=== PATIENT | female | born 1945 | race Caucasian/White ===

== ENCOUNTER → 2020-10-16 08:46 | Outpatient (CLI) | payer MEDICARE, SELFPAY ==
--- NOTE | 2020-10-16 | DI.NM.S_ITS ---
PROCEDURE: NM ALLYN PERF SPECT REST & STR Rest and pharmacological stress myocardial perfusion SPECT with gated imaging and ejection fraction RADIOPHARMACEUTICAL: 25 mCi Tc-99m tetrafosmin IV at rest and 25.1 mCi Tc-99m tetrafosmin IV at peak effect of pharmacological stress. Yys-ezv-[id number] was performed. INDICATIONS: Paroxysmal atrial fibrillation TECHNIQUE: Radiopharmaceutical was injected at peak stress test, and also at rest. SPECT images were obtained. SPECT myocardial perfusion images were displayed in short axis, horizontal long axis, and vertical long axis views. Gated images were reviewed using [employer] software. COMPARISON: None. CARDIAC STRESS: A pharmacologic stress test was performed under the supervision of an attending staff, using an infusion of lexiscan 0.4mg IV X1. Hemodynamic data: There is normal blood pressure and heart rate response to pharmacologic stress. Symptoms: The patient denied anginal chest pain. Aminophylline: none EKG: No diagnostic changes of ischemia; occasional PVCs during the study. FINDINGS: Raw data: There is good myocardial uptake of radiotracer. No significant motion artifacts. Mfed-bs-grtws ratio is 0.37 (normal is less than 0.38 for tetrafosmin tracer). Left ventricle function: Gated images demonstrate normal left ventricular wall thickening. No segmental wall motion abnormalities. No transient ischemic dilation; TID is 0.87 (normal less than 1.3). Left ventricle resting end diastolic volume is 80 mL. Left ventricle stress ejection fraction is 87%; normal range is above 45%. Myocardial perfusion: There is normal distribution of activity in the right and left ventricular myocardium. No fixed or reversible perfusion defects. IMPRESSION: Low risk, normal pharmaceutical nuclear stress test. 1) No perfusion evidence of ischemia or infarction. 2) Normal left ventricular size, wall motion, and systolic function (EF post stress 87%). 3) No ECG evidence of ischemia. 4) No angina during the study. 5) No prior nuclear stress test available for comparison. Dictated by: Tamia Reaves MD on 10/19/2020 at 9:38 Approved by: Tamia Reaves MD on 10/19/2020 at 9:40
--- NOTE | 2020-10-18 14:15 | PM.TREADMILL ---
Cardiac Stress Test Report Referral & Results Date Patient Seen: 10/18/20 Requesting provider: Kenny Roberson Indication: AFib, preop Rest ECG: Sinus rhythm with occasional PVCs Procedure Note: After both written and verbal informed consent the patient had an IV started by the diagnostic imaging RN, and then was hooked up to the treadmill monitoring system. The Lexiscan material, and then the Cardiolite tracer, were administered sequentially. An additional 3 min was spent monitoring the patient while supine on the gurney. The patient had a normal response to all infused materials. Impression: Patient fairly dramatic symptoms of dyspnea with the infusion of the Lexiscan. Vital signs remained stable however. Symptoms of dyspnea improved significantly prior to her leaving the treadmill room Please see perfusion imaging report for details regarding possible ischemia Please note: Actual ECG tracings can be found in the PACS system.
== END ==
PROVIDERS: PCP Family Medicine; Referring Provider Family Medicine; Visit Provider Family Medicine
DX: Z01.812 Encounter for preprocedural laboratory examination (principal); I48.0 Paroxysmal atrial fibrillation; Z20.822 Contact with and (suspected) exposure to COVID-19
CPT/HCPCS: 78452; 87635; 93016; 93017; 93018; C9803; A9502; J2785

== ENCOUNTER → 2020-10-16 10:18 | Outpatient (CLI) | payer MEDICARE, SELFPAY ==
[2020-10-16 11:39] LABS: COVID19 -Nasal RAPID Negative (Negative)
== END ==
PROVIDERS: PCP Family Medicine; Visit Provider Physician Assistant
DX: Z01.812 Encounter for preprocedural laboratory examination (principal); Z20.822 Contact with and (suspected) exposure to COVID-19
CPT/HCPCS: 87635

== ENCOUNTER → 2021-01-20 16:32 | Outpatient (CLI) | payer MEDICARE, SELFPAY ==
[2021-01-20 16:50] LABS: Add Manual Diff / Slide Review NO; Basophils Absolute Auto 100 /uL (0-100); Basophils Percent Auto 0.8 % (0-2); Eosinophils Absolute Auto 300 /uL (0-450); Eosinophils Percent Auto 3.2 % (2-4); Hematocrit 28.9 % (36-46); Hemoglobin 9.2 g/dL (12.0-16.0); Lymphocytes Absolute Auto 2800 /uL (1100-4500); Lymphocytes Percent Auto 31.7 % (25-40); Mean Corpuscular HGB Conc 31.9 % (30-36); Mean Corpuscular Hemoglobin 22.8 PG (26-34); Mean Corpuscular Volume 71.4 fL (80-100); Monocytes Absolute Auto 900 /uL (0-900); Monocytes Percent Auto 10.3 % (3-14); Neutrophils Absolute Auto 4800 /uL (1500-7000); Platelet Count 493 X10^3/uL (150-400); Red Blood Cell Count 4.04 X10^6/uL (4.0-5.2); Red Cell Distribution Width 20.5 % (11.6-14.8); White Blood Cell Count 8.9 X10^3/uL (4.5-11.0)
[2021-01-20 17:04] LABS: BUN Creatinine Ratio 24.7 (6-22); Blood Urea Nitrogen 20 mg/dL (7-17); Calcium 9.5 mg/dL (8.4-10.2); Carbon Dioxide 29 mmol/L (22-32); Chloride 98 mmol/L (98-107); Estimated Glomerular Filt Rate > 60.0 mL/min (>60); Glucose 87 mg/dL (80-110); HEMOLYSIS < 15 (0-50); Potassium 4.2 mmol/L (3.4-5.1); Sodium 134 mmol/L (137-145)
[2021-01-20 17:38] LABS: Anisocytosis 1+; Hypochromasia 2+; Microcytosis 1+; Platelet Estimate Adequate on smear; Poikilocytosis 1+; Target Cells 1+
== END ==
PROVIDERS: Family Provider Family Medicine; PCP Family Medicine; Referring Provider Orthopaedic Surgery Orthopaedic Surgery of the Spine; Visit Provider Orthopaedic Surgery Orthopaedic Surgery of the Spine
DX: Z01.812 Encounter for preprocedural laboratory examination (principal)
CPT/HCPCS: 36415; 80048; 85025

== ENCOUNTER → 2021-01-24 12:17 | Outpatient (CLI) | payer MEDICARE, SELFPAY ==
[2021-01-24 13:23] LABS: Add Manual Diff / Slide Review NO; Basophils Absolute Auto 100 /uL (0-100); Eosinophils Absolute Auto 200 /uL (0-450); Eosinophils Percent Auto 2.7 % (2-4); Hematocrit 28.2 % (36-46); Hemoglobin 9.2 g/dL (12.0-16.0); Lymphocytes Absolute Auto 1700 /uL (1100-4500); Lymphocytes Percent Auto 25.5 % (25-40); Mean Corpuscular HGB Conc 32.7 % (30-36); Mean Corpuscular Hemoglobin 22.8 PG (26-34); Mean Corpuscular Volume 69.6 fL (80-100); Monocytes Absolute Auto 600 /uL (0-900); Monocytes Percent Auto 9.1 % (3-14); Neutrophils Absolute Auto 4100 /uL (1500-7000); Neutrophils Percent Auto 61.7 % (50-75); Platelet Count 489 X10^3/uL (150-400); Red Blood Cell Count 4.05 X10^6/uL (4.0-5.2); Red Cell Distribution Width 20.5 % (11.6-14.8); White Blood Cell Count 6.6 X10^3/uL (4.5-11.0)
[2021-01-24 14:02] LABS: HEMOLYSIS < 15 (0-50); Iron 25 ug/dL (37-170)
[2021-01-24 14:10] LABS: Hypochromasia 2+; Microcytosis 2+
[2021-01-24 14:14] LABS: Percent Iron Saturation 6 % (15-50); Total Iron Binding Capacity 416 ug/dL (265-497); Transferrin 341 mg/dL (206-381)
[2021-01-24 14:42] LABS: Ferritin 7 ng/mL (11-264)
[2021-01-24 14:57] LABS: Vitamin B12 Reflex MMA if <400 > 1000 pg/mL (239-931)
== END ==
PROVIDERS: Family Provider Family Medicine; PCP Family Medicine; Referring Provider Family Medicine; Visit Provider Family Medicine
DX: D64.9 Anemia, unspecified (principal)
CPT/HCPCS: 36415; 82607; 82728; 83540; 83550; 85025

== ENCOUNTER → 2021-02-06 14:57 | Outpatient (CLI) | payer MEDICARE, SELFPAY ==
--- NOTE | 2021-02-06 15:01 | DI.CT.S_ITS ---
PROCEDURE: CT LUMBAR SPINE WO CON INDICATIONS: Radiculopathy, lumbar region TECHNIQUE: Noncontrast 3 mm thick sections acquired from the T12 level to the sacrum. Sagittal and coronal reformats were constructed. For radiation dose reduction, the following was used: automated exposure control. COMPARISON: [facility], CT, CT LUMBAR SPINE WITHOUT CONTRAST, 06/24/2020, 14:58. [facility], MR, MR LUMBAR SPINE WITHOUT CONTRAST, 06/24/2020, 14:35. [facility], CR, XR LUMBAR SPINE WITH FLEXION EXTENSION 5 VIEWS, 06/10/2020, 16:20. FINDINGS: Image quality: Excellent. Bones: No acute vertebral body compression fractures. There is a remote fracture seen of the L3 level, with vertebroplasty cement present. There is approximately 30% loss of vertebral body height anteriorly, which is similar to the prior. No suspicious lytic or blastic bony lesions. There is mild retrolisthesis at L2-L3, with moderate retrolisthesis at L3-L4. Pars defects are not seen. T10-T11: Moderate loss of disc height is seen. Bridging endplate osteophytes are seen. No significant disc bulge is seen. At least moderate facet hypertrophy can be seen. No significant central canal narrowing is seen. T11-T12: Mild to moderate loss of disc height is seen. Mild generalized disc bulge is seen. Moderate facet joint hypertrophy is seen. There is moderate right-sided and no left-sided neural foraminal narrowing seen. Mild to moderate central canal narrowing is seen. T12-L1: Moderate loss of disc height is seen. A mild degree of vacuum disc phenomenon can be seen anteriorly. Mild generalized disc bulge is seen. No significant neural foraminal or central canal narrowing can be seen. L1-L2: Moderate loss of disc height is seen. Endplate irregularity and sclerosis can be seen. Vacuum disc phenomenon is seen at this level. Mild to moderate disc bulge is seen. Mild bilateral neural foraminal narrowing can be seen. Mild central canal narrowing is seen. When comparison is made with the prior images, these findings are similar. L2-L3: At least moderate loss of disc height is seen. At least moderate disc bulge is seen. Vacuum disc phenomenon is seen at this level. At least moderate facet hypertrophy can be seen. There is moderate right-sided and at least moderate left-sided neural foraminal narrowing seen. Moderate central canal narrowing is seen. No significant change compared to the prior. L3-L4: Pytw-oh-wtgoselo loss of disc height is seen. Vertebroplasty cement can be seen along this disc level, which is similar to the prior. There is moderate to severe bilateral neural foraminal narrowing seen, right worse than left. Moderate to severe central canal narrowing is seen, as on series 4, image 51. When comparison is made with the prior images, these findings are similar. L4-L5: Moderate to severe loss of disc height is seen. Endplate irregularity and sclerosis can be seen. Vacuum disc phenomenon is seen at this level. At least moderate facet hypertrophy is seen. There is at least moderate bilateral neural foraminal narrowing seen, right worse than left. At least moderate central canal narrowing is seen. Stable from the prior study. L5-S1: There is moderate loss of disc height seen. Vacuum disc phenomenon is seen at this level. Endplate irregularity and sclerosis can be seen. Posteriorly projected endplate osteophytes are seen. Mild to moderate facet hypertrophy is seen. There is moderate right-sided and moderate to severe left-sided neural foraminal narrowing seen. Moderate central canal narrowing is seen. No significant change from the prior. Soft tissues: No retroperitoneal masses or hematomas. Visualized aorta is normal in caliber. Atherosclerotic calcification is noted. Minimal sigmoid diverticulosis can be seen, without findings of active diverticulitis. IMPRESSION: Multiple levels of lumbar spine degenerative change are seen, which are overall worst at the L3-L4 level. The degenerative changes are similar to the outside prior. Stable remote L3 compression deformity, with vertebroplasty cement. Dictated by: Don Beltre M.D. on 02/07/2021 at 11:33 Approved by: Don Beltre M.D. on 02/07/2021 at 11:42
== END ==
PROVIDERS: Family Provider Family Medicine; PCP Family Medicine; Referring Provider Orthopaedic Surgery Orthopaedic Surgery of the Spine; Visit Provider Orthopaedic Surgery Orthopaedic Surgery of the Spine
DX: M47.26 Other spondylosis with radiculopathy, lumbar region (principal); M47.27 Other spondylosis with radiculopathy, lumbosacral region
CPT/HCPCS: 72131

== ENCOUNTER → 2021-02-12 10:13 | Outpatient (CLI) | payer MEDICARE, SELFPAY ==
[2021-02-12 12:38] LABS: COVID19 -Nasal RAPID Negative (Negative)
== END ==
PROVIDERS: Family Provider Family Medicine; PCP Family Medicine; Visit Provider Physician Assistant
DX: Z20.822 Contact with and (suspected) exposure to COVID-19 (principal)
CPT/HCPCS: 87635; C9803

== ENCOUNTER 2021-02-14 10:42 | Inpatient (IN) | payer MEDICARE, SELFPAY ==
[2021-02-05 08:47] VITALS: BMI 25.6
[2021-02-14] VITALS (14 sets, daily range): BP systolic 110–147; BP diastolic 58–79; PULSE 62–87; RESP 10–20; TEMP 35.7–36.6; O2SAT 92–966; BMI 25.6
--- NOTE | 2021-02-14 11:15 | SUR.PREOP ---
5/5 strength throughout lower extremities. states has low back pain radiating down bilateral legs to top of feet. occasional sciatic pain. denies numbness or tingling.
[2021-02-14] MEDS: LACTATED RINGERS 1,000 ML 42 ML IV ×2 (11:20→16:41)
--- NOTE | 2021-02-14 12:33 | PM.PREOP ---
Pre-operative Note COVID-19 COVID-19 status: Negative Result date/Date tested (Pos, Neg/Pending): 02/12/21 Interval Note History & Physical reviewed/Exam performed by Physician: Yes Changes to H&P: No
[2021-02-14] MEDS: CEFAZOLIN 1 GM VIAL 2 GM IV ×2 (13:15→20:13)
--- NOTE | 2021-02-14 13:50 | SUR.OPER ---
Prone on spine table, head in foam head support, padded chest and pelvic supports, gel pad at knees, lower legs supported by pillows; nipples, genitalia and toes free of pressure, arms secured on foam padded arm boards at <90 degrees abduction. Tape over blanket at thigh secured to table.
[2021-02-14] MEDS: BUPIVACAINE 0.25% (PF) 30 ML, EPINEPHrine 0.3 MG INJ (13:54)
[2021-02-14] MEDS: BUPIVACAINE LIPOSOME 266 MG/20 ML VIAL INJ (13:54)
--- NOTE | 2021-02-14 17:17 | DI.RAD.S_ITS ---
PROCEDURE: XR LUMBAR SPINE 2-3V INDICATIONS: TLIF TECHNIQUE: 2 intraoperative fluoroscopic spot films were obtained COMPARISON: [facility], [place], CT LUMBAR SPINE WO CON, 02/06/2021, 15:13. FINDINGS: Two intraoperative fluoroscopic spot films were obtained during a interbody fusion and posterior farida and screw instrumentation placement. Hardware appears appropriately positioned, there is a spacer graft cage at L2-3. IMPRESSION: Fluoroscopic guidance Approved by: Peterson Khan M.D. on 02/14/2021 at 17:15
--- NOTE | 2021-02-14 17:31 | P.OP_ITS ---
Operative Date/Time/Diagnoses Date of procedure: 02/14/21 Time of procedure: 12:30 Pre-op diagnosis: 1. L2-3, L3-4 spinal stenosis with neurogenic claudication 2. L2-3, L3-4 spondylosis with radiculopathy Post-op diagnosis: same Procedure & Clinicians Procedure: 1. L2-3, L3-4 Postero-lateral and posterior interbody fusion 2. L2-3, L3-4 interbody cage placement, L3-4 cage was removed 3. L2-3, L3-4 decompressive laminectomy with bilateral facetecomies 4. L2-3, L3-4 Posterior segmental instrumentation 5. Anchor Point of bone marrow from iliac crest 6. Utilization of microsurgical technique and operating microscope Same procedure as scheduled: Yes Indications: Patient has been having chronic back pain and worsening lumbar radiculopathy. Patient failed multiple conservative management with worsening pain weakness and numbness in her lower extremity. Patient has been having difficulty performing activity of daily living. After discussing risks benefits of treatment options, patient elected proceed with surgery. Surgeon: Gilberto Savage Window Glass Installer: Dina Bah Click Yes if Unassisted: No Anesthesia Type: General Operative Notes Closure Type: primary Specimen(s): none sent Prosthetic devices, grafts, tissues, transplants, or devices: Globus CREO MIS screws, Rise cage Applied: catheter Estimated Blood Loss (mL): 250 Blood products transfused: none Procedure in detail: Patient was seen in the preoperative area. Risks and benefits of the surgery was discussed with the patient. Informed consent was obtained from the patient and placed in the chart. Surgical site was marked. Patient was taken to the operative room. General anesthesia was administered. Prophylactic antibiotic was given to the patient less than 30 min before the incision was made. Patient was placed into a prone position on the Jaylon table. Patient's back was then prepped and draped in the sterile fashion. Time- out was performed at this time. After patient was prepped and draped, patient's PSIS was palpated and marked bilaterally. Small 1 cm incision was made over the PSIS for placement of the reference probes. Two trocar was placed into the PSIS 1 on each side. The reference probe was attached to the trocar of the reference apparatus. At this time the C-arm imaging was used to confirm AP and lateral of L2, L3-L4 vertebrae and merged the C-arm imaging using the [email or web address] robotic navigation system with the CT of the lumbar spine. After successful merging was completed and confirmed, skin marker was used to mary out the skin incision using the [email or web address] robotic arm. Bilateral incision was made at this time. Pre templated trajectory was used and guided using the [employer] robotic navigation system for bilateral L2 L3, L4 pedicle screw placement. This was done by using the robotic arm to guide the high-speed bur to make a cortical entry point. Next a drill was placed also using the robotic arm and guided using the navigation system drilling partially through bilateral L2, L3, L4 pedicles. Next L2, L3, L4 pedicle screws it was pre templated and measured was placed onto the power local company truck driver and inserted into the pedicles bilaterally. After all 6 screws were placed C-arm imaging was taken of both AP and lateral to confirm the placement. Excellent placement of the screws were confirmed and a matched precisely with the pre planned screw placement using the navigation system. MARs retractor was inserted using [employer] guidence. Globus MARS retractors was placed inside the incision and docked onto the L2, L3 lamina. Using microsurgical technique and operating microscope, a L3, L4 laminectomy and L2-3, L3-4 facetectomy was performed using a Kerrison rongeur. Patient was found have severe lateral recess and neural foramen stenosis which was fully decompressed after the laminectomy facetectomy. More than 75% of the facets were removed during the process of decompression rendering L2-3, L3-4 level grossly unstable and required a fusion procedure at the same time. The disc sp genny at L2-3, L3-4 was identified, and a total diskectomy was performed at L2-3, L3-4 level. The endplates were decorticated using a rasp and shaver. The total diskectomy and decortication was performed at L2-3, L3-4 level in order to to accomplish a L2-3, L3-4 fusion. The local bone from the laminectomy and facetectomy was saved for local bone grafting. After the total diskectomy and decortication was completed, Trifecta bone graft material was combined with local bone that was harvested earlier. During the process of interbody disc space preparation at L3-4 level, pinhole- sized dural defect was encountered secondary to patient's skin amount of adhesion possibly due to previous fracture/kyphoplasty surgery. The dural defect was small and was not amenable for surgical repair. DuraGen and Tisseel was used to patch the dural defect. There was no CSF leakage. At this time, a separate skin is incision was made over the iliac crest. A Jamshidi needle was inserted into the iliac crest through a separate skin incision. 5 cc of bone marrow aspiration was obtained through the separate skin incision using a Jamshidi needle from the iliac crest. The bone marrow aspiration was combined with local bone and the Trifecta bone grafting material. The bone grafting material was placed into the L2-3, L3-4 interbody space along with expandable cages. One cage each was inserted into the L2-3 L3-4 interbody space along with bone graft material. The cage was expanded to its maximum height using the torque limiting screwdriver. The disc preparation as well as the cage insertion were also performed under navigation guidance. After the cage was placed, AP and lateral C-arm imaging was taken to confirm placement of the cage and excellent position was confirmed. Patient was found have significant osteoporosis in all the segments of bone that was operated on at L2 through 4. After the cage was placed at both levels x-ray imaging confirms significant amount of subsidence at L3-4 level. Due to the significant amount of bone bleeding as well as subsidence, decision was made to remove the L3-4 interbody cage. This was done by the expand the cage using the screwdriver, retrieving the cage using a pituitary. After the cage was removed interbody space at L3-4 was packed with additional bone material consisted of stem cell and autograft in order to accomplish interbody fusion at L3-4 level. Globus MARS retractor was inserted and docked onto the L2-3, L3-4 posterolateral gutter on the right side. Using the power drill, posterior-lateral decortication was performed at L2-3, L3-4 level until bleeding cortical bone was identified. The remaining bone grafting material was placed into the L2-3, L3-4 posterior lateral gutter he order to accomplish posterolateral fusion at the L2- 3, L3-4 level. At this time the tulips were attached to the L2, L3-L4 pedicle screw shanks. After measuring the length of the rods, they were inserted into the tulips of the pedicle screws and locked in place using locking caps and torque limiting screwdriver bilaterally. Total 6 caps and 2 titanium rods was used in order to complete the posterior instrumentation construct. After all the hardware was placed, and confirmed with AP and lateral C-arm imaging, the wound was then irrigated with sterile normal saline and packed with Ray-Shant gauze for 3 min to accomplish hemostasis. After the gauze was removed the deep fascia was closed with #1 Vicryl suture. The subcutaneous layer was closed with 2-0 Vicryl. The skin was closed with skin yumiko. Patient tolerated the procedure well. There were no complications. Neuro monitoring system was used to monitor patient's neurologic status throughout entire procedure. There was no disturbance of the neural monitoring signals throughout the case. Complications: none Post-operative Condition: stable Disposition: PACU Plan for aftercare: Admit to inpatient hospital
--- NOTE | 2021-02-14 18:42 | PC.NURSE ---
Day shift: Pt on unit from PACU at approx 1842. She woke up in the elevator per REPAIRER TYPEWRITER's and she now appears to be in pain. Moans and wiggling. Encouraged to lay flat. Dressing is CDI. Mayers patent with clear yellow output. Call light in reach. She is in pain but not talking much.
[2021-02-14] MEDS: SODIUM CHLORIDE 0.9% 1,000 ML 100 ML IV (19:06)
[2021-02-14] MEDS: HYDROMORPHONE 0.5 MG INJ IV (20:13)
[2021-02-14] MEDS: ACETAMINOPHEN 325 MG TABLET 650 MG PO (20:17)
[2021-02-14] MEDS: DOCUSATE 100 MG CAPSULE PO (20:18)
[2021-02-14] MEDS: SENNOSIDES 8.6 MG TABLET 17.2 MG PO (20:18)
[2021-02-14] MEDS: ATORVASTATIN 20 MG TABLET PO (20:18)
[2021-02-14] MEDS: ALPRAZolam 0.25 MG TABLET PO (20:18)
[2021-02-14] MEDS: diazePAM 10 MG/2 ML SYRINGE 2 MG IV (21:04)
[2021-02-14] MEDS: HYDROMORPHONE 1 MG INJ IV (22:52)
[2021-02-15] VITALS (10 sets, daily range): BP systolic 104–151; BP diastolic 54–98; PULSE 74–98; RESP 14–18; TEMP 35.8–36.6; O2SAT 91–100
[2021-02-15] MEDS: HYDROMORPHONE 1 MG INJ IV ×4 (00:45→06:15)
[2021-02-15] MEDS: HYDROCODONE/ACET 10/325 TABLET 1 TAB PO (02:24)
[2021-02-15] MEDS: ALPRAZolam 0.25 MG TABLET PO ×2 (02:24→20:16)
[2021-02-15] MEDS: CEFAZOLIN 1 GM VIAL 2 GM IV (04:57)
[2021-02-15 07:04] LABS: Hemoglobin 7.6 g/dL (12.0-16.0)
[2021-02-15] MEDS: POTASSIUM CHLORIDE 20 MEQ TAB PO (08:42)
[2021-02-15] MEDS: FERROUS SULFATE 325 MG TABLET PO (08:42)
[2021-02-15] MEDS: OXYCODONE IR 5 MG TABLET 10 MG PO ×5 (08:42→23:25)
[2021-02-15] MEDS: hydrOXYzine pamoate 25 MG CAPSULE PO ×3 (08:42→23:25)
[2021-02-15] MEDS: FUROSEMIDE 40 MG TABLET PO (08:42)
[2021-02-15] MEDS: lisinopriL 5 MG TABLET PO (08:42)
[2021-02-15] MEDS: DOCUSATE 100 MG CAPSULE PO ×2 (08:42→20:16)
[2021-02-15] MEDS: MAGNESIUM HYDROXIDE 30 ML UDC PO (08:42)
[2021-02-15] MEDS: METOPROLOL ER 50 MG TABLET 100 MG PO (08:43)
[2021-02-15] MEDS: dilTIAZem CD 180 MG CAP PO (08:44)
--- NOTE | 2021-02-15 10:01 | PM.PNPO.1 ---
Subjective Subjective Date Patient Seen: 02/15/21 Time Patient Seen: 10:01 Interval history: Patient states she just had a pain pill and is much more comfortable. She states she is tired she had difficulty sleeping last night. Denies fever or chills. Otherwise without complaints. Exam Vital Signs (past 8 hours): - 02/15/21 04:36 02/15/21 08:41 02/15/21 09:21 Temperature 97.6 F 96.5 F L Pulse Rate 87 98 H 88 Respiratory Rate 14 14 Blood Pressure 151/98 H 143/83 H Pulse Oximetry 100 98 Oxygen Delivery Method Nasal Cannula Oxygen Flow Rate 4 Narrative Exam Narrative: Pleasant 75-year-old female resting comfortably in bed in no apparent distress. Dressing is Clean, dry, intact.. Motor functions intact distal bilateral lower extremities. Sensation grossly intact bilateral lower extremities. Objective Labs Result Diagrams: 02/15/21 06:45 Labs: Laboratory Results - last 24 hr 02/15/21 06:45 Hgb 7.6 L Hct 24.0 L PFSH Medical History Acid reflux Acne (~1951) Anemia Anxiety Atrial fibrillation (~2018) Cataracts, bilateral (~2017) Chicken pox Chronic low back pain (~2014) Chronic pain syndrome Current every day smoker Dyslipidemia History of Mohs micrographic surgery for skin cancer HLD (hyperlipidemia) Hypertension correction current use of anticoagulant therapy Measles SCC (squamous cell carcinoma) Syncope (~2017) Surgical History (Updated 02/05/21 @ 09:22 by Desire Snyder RN) Anesthesia History of bilateral tubal ligation History of carpal tunnel surgery of right wrist History of tonsillectomy (~1962) Hx of bilateral cataract extraction Family History (Updated 11/05/20 @ 22:21 by Loiuse Theodore) Father History of heart disease Mother History of heart disease Hypertension Social History household members: none Smoking Status: Current every day smoker Tobacco: How many years used: 57 quit status: not considering quitting (Too stressed) second hand exposure: Yes alcohol intake: current substance use type: marijuana (Pain relief ) Assessment & Plan Post-op Postoperative Procedures: Procedures Operation Date: 02/14/21 12:15 Actual Procedure Side Surgeon p L2-3, L3-4 TLIF with posterior instrumentation Gilberto Savage MD Postoperative day: 1 Postoperative status narrative: Stable Postoperative plan narrative: Patient has been supine due to a pinhole-sized dural defect L3-L4 per op note Multimodal pain management Catheter out when ambulating Mobilize with physical therapy, limit bending, twisting, lifting Disposition 1-2 days Quality VTE Deep Vein Thrombosis/Pulmonary Embolism Present on Admission: No
--- NOTE | 2021-02-15 10:40 | PT.IIE ---
Current Diagnoses Spondylolisthesis, lumbar region (02/14/21) Spinal stenosis, lumbar region with neurogenic claudication (02/14/21) Surgery Performed Operation Date: 02/14/21 12:15 Actual Procedures p L2-3, L3-4 TLIF with posterior instrumentation - Gilberto Savage MD Surgical History (Last Updated 02/05/21 @ 09:22 by Desire Snyder RN) Anesthesia Medical History (Last Reviewed 02/15/21 @ 10:02 by Brad Gallegos PA-C) Acid reflux Acne (~1952) Anemia Anxiety Atrial fibrillation (~2018) Cataracts, bilateral (~2018) Chicken pox Chronic low back pain (~2014) Chronic pain syndrome Current every day smoker Dyslipidemia History of Mohs micrographic surgery for skin cancer HLD (hyperlipidemia) 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 Measles SCC (squamous cell carcinoma) Syncope (~2017) Physical Therapy Inpatient Evaluation/Re-Eval M1 PT/OT-IP Prior Functional Status Start: 02/15/21 13:54 Freq: NEEDED Status: Active Protocol: Document 02/15/21 10:40 AB (Rec: 02/15/21 14:08 [email or web address]) Medical Review Prior Functional Status Medical History Reviewed Yes Communication able to make needs known but drowsy Mobility and Gait pt stated that she is independent with all mobilities and ambulaiton without AD Social History Household Members none Living Arrangements House Number of Floors (Floors) Two Floors Number of Stairs To Enter/Railing? pt stays on main level of the house 2 steps to enter without rails but has 2 posts that she can hold on to Home Environment Standard Height Toilet,Tub/ Shower Home Equipment Four Wheel Walker,Shower Seat without Backrest,Hand Held Shower,Grab Bars In Shower Additional Social History Comment stated that her son and daughter in law lives next door that might be able to help but are not available all the time M2 PT-IP Current Condition Start: 02/15/21 13:54 Freq: NEEDED Status: Active Protocol: Document 02/15/21 10:40 AB (Rec: 02/15/21 14:08 [email or web address]) Physical Therapy Current Condition Current Condition Evaluation Date 02/15/21 Treatment Diagnosis s/p L2-3, L3-4 TLIF; difficulty in walking Onset Date 02/14/21 M3 PT-IP Subjective Start: 02/15/21 13:54 Freq: NEEDED Status: Active Protocol: Document 02/15/21 10:40 AB (Rec: 02/15/21 14:08 [email or web address]) Subjective Physical Therapy Visit Type Type Initial Evaluation Visit Start Time 10:40 Visit Stop Time 11:16 Total Visit Minutes 36 Number of ESCAPEMENT MAKER Visits 0 Physical Therapy Visit Comments Patient Comments agreeable to do PT Therapy Pain Assessment Pain When Pain Assessed At Rest Pain Present Pain Present Pain Reported Location Lower Back Intensity 10 Scale Used Numeric (0 - 10) Pain Behaviors Restlessness Pain Management Techniques Distraction,Modification of Treatment,Re-positioning, Timing of Activity with Medications M4 PT-IP Mobility and Gait Start: 02/15/21 13:54 Freq: NEEDED Status: Active Protocol: Document 02/15/21 10:40 AB (Rec: 02/15/21 14:08 [id number]) PT-Bed Mobility Assessment Rolling Type of Rolling Log Rolling Level of Assist Maximal Assistance Supine to Sit Supine to Sit Maximum Assistance,1 Person Assistance,2 Person Assistance PT-Transfer Assessment Sit to and From Stand Sit to and from Stand Maximum Assistance,1 Person Assistance,2 Person Assistance ,Use of Upper Extremities Equipment Transfer Assistive Device Gait Belt Orthotic/Prosthetic Devices or Brace: No Transfers Transfer Technique Stand Step Pivot Transfer Ability Level of Assist Maximum Assistance,2 Person Assistance,Use of Upper Extremities Comments Mobility Comments educated pt on back precautions and log roll bed mobility. pt is drowsy but able to answer questions. completed log roll supine to sit max A x 1- 2 and max cues. pt is very impulsive and restless and requires cues for safety. pt tends to twist in bed and tried to sit up side way but with LE still up in bed. instructed pt to stop and pt stated that she is losing her patient. pt calmed down after instructions. pt was able to sit on EOB mod A and max cues. completed sit to stand max A and max cues. c/o increase back pain. max A x 2 for step transfer to chair. positioned pt on chair . call light and table placed within reach. Gait Assessment Comments Gait Comments unable at this time PT-Balance Assessment Sitting Balance and Reactions Static Sitting Balance Ability Fair Dynamic Sitting Balance Ability Fair Standing Balance and Reactions Static Standing Balance Ability Poor Dynamic Standing Balance Ability Poor Device Used FWW M5 PT-IP Objective Assessments Start: 02/15/21 13:54 Freq: NEEDED Status: Active Protocol: Document 02/15/21 10:40 AB (Rec: 02/15/21 14:08 AB [id number]) Orientation Orientation/Cognition Level of Alertness Confusional State Orientation Name Safety Awareness Decreased Safety Awareness Memory Description Short Term Impaired Gross Range of Motion Lower Extremity ROM Assessment Within Functional Limits Strength Lower Extremity Strength Assessment Bilaterally Impaired Hip 3+/5 Knee L: 4-/5 R: 3+/5 Sensation Assessment Sensation Gross Sensation WNL Muscle Tone Muscle Tone WNL Yes M6 PT-IP Treatment Start: 02/15/21 13:54 Freq: NEEDED Status: Active Protocol: Document 02/15/21 10:40 AB (Rec: 02/15/21 14:08 AB [id number]) Physical Therapy Treatment Education Education Provided Precautions,Weight Bearing Status,Post-Op Packet,Safety M7 PT-IP Assessment and Plan Start: 02/15/21 13:54 Freq: NEEDED Status: Active Protocol: Document 02/15/21 10:40 AB (Rec: 02/15/21 14:08 AB [id number]) PT Summary Assessment and Plan Potential Rehabilitation Potential Good Status of Condition at Evaluation Evolving Summary Impairments Pain,ROM,Strength,Balance, Coordination,Sensation,Tone, Cognition,Bed Mobility, Transfers,Gait,Activity Tolerance Assessment Summary pt requiring max A x 2 and max cues with mobility. c/o increase back pain to 10/10 and is very impulsive and unable to tolerate much activity due to pt. pt will need 24/7 assist available at this time and will require SNF rehab to improve strength and independence. will continue to assess progress. Goals Bed Mobility Goal Standby Assistance Transfer Goal Standby Assistance,Front Wheeled Walker Gait Goal Standby Assistance,Front Wheel Walker Gait Distance 100 Other Goals improve ambulation using 4WW 150 ft SBA up/down 2 steps 2 posts/ supports/ CLINICAL REIMBURSEMENT SPECIALIST min A Days to Meet Goals 10 Frequency of Treatment Frequency Of Treatment Twice a Day Treatment Plan Physical Therapy Treatment Plan Bed Mobility Training,Transfer Training,Gait Training, Therapeutic Exercise,Balance Retraining,Post Op Education, Discharge Planning,Hot or Cold Pack,Neuromuscular Re-ed, Coordination Retraining,Manual Therapy Other Recommendations and Next Treatment ambulation Focus Precautions Lumbar Precautions Log Roll,No Twisting,Limit Bending,Lifting Restriction of 10 lbs,Gait Belt above Incisional Area Recommendations To Nursing Amount of Assist Needed 2 Person Assist Discharge Recommendations PT Discharge Recommendations SNF Rehab Equipment Needed for Home Before FWW if not safe with 4WW Discharge Transportation Needs at Discharge Wheelchair/Cabulance
[2021-02-15] MEDS: HYDROMORPHONE 0.5 MG INJ IV (11:17)
--- NOTE | 2021-02-15 11:22 | OT.IP.EVAL ---
Current Diagnoses Spondylolisthesis, lumbar region (02/14/21) Spinal stenosis, lumbar region with neurogenic claudication (02/14/21) Surgery Performed Operation Date: 02/14/21 12:15 Actual Procedures p L2-3, L3-4 TLIF with posterior instrumentation - Gilberto Savage MD Past Medical History (Last Reviewed 02/15/21 @ 10:02 by Brad Gallegos PA-C) Acid reflux Acne (~1952) Anemia Anxiety Atrial fibrillation (~2018) Cataracts, bilateral (~2017) Chicken pox Chronic low back pain (~2014) Chronic pain syndrome Current every day smoker Dyslipidemia History of bilateral tubal ligation History of carpal tunnel surgery of right wrist History of Mohs micrographic surgery for skin cancer History of tonsillectomy (~1962) HLD (hyperlipidemia) Hx of bilateral cataract extraction 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 Measles SCC (squamous cell carcinoma) Syncope (~2017) Surgical History (Last Updated 02/05/21 @ 09:22 by Desire Snyder RN) Anesthesia History of bilateral tubal ligation History of carpal tunnel surgery of right wrist History of tonsillectomy (~1962) Hx of bilateral cataract extraction Occupational Therapy Inpatient Evaluation/Re-Eval M1 PT/OT-IP Prior Functional Status Start: 02/15/21 13:54 Freq: NEEDED Status: Active Protocol: Document 02/15/21 14:37 CGR (Rec: 02/15/21 14:51 CGR [id number]) Medical Review Prior Functional Status Medical History Reviewed Yes Communication able to make needs known but drowsy Mobility and Gait pt stated that she is independent with all mobilities and ambulaiton without AD Activities of Daily Living and IADL's Pt states IND in all ADLs prior to admit. Social History Household Members other Living Arrangements House Number of Floors (Floors) Two Floors Number of Stairs To Enter/Railing? pt stays on main level of the house 2 steps to enter without rails but has 2 posts that she can hold on to Home Environment Standard Height Toilet,Tub/ Shower Home Equipment Four Wheel Walker,Shower Seat without Backrest,Hand Held Shower,Grab Bars In Shower Additional Social History Comment stated that her son and daughter in law lives next door that might be able to help but are not available all the time and that her grandson lives with her but he works. M1 PT/OT-IP Prior Functional Status Start: 02/15/21 14:36 Freq: NEEDED Status: Active Protocol: Document 02/15/21 14:37 CGR (Rec: 02/15/21 14:51 CGR [id number]) Medical Review Prior Functional Status Medical History Reviewed Yes Communication able to make needs known but drowsy Mobility and Gait pt stated that she is independent with all mobilities and ambulaiton without AD Activities of Daily Living and IADL's Pt states IND in all ADLs prior to admit. Social History Household Members other Living Arrangements House Number of Floors (Floors) Two Floors Number of Stairs To Enter/Railing? pt stays on main level of the house 2 steps to enter without rails but has 2 posts that she can hold on to Home Environment Standard Height Toilet,Tub/ Shower Home Equipment Four Wheel Walker,Shower Seat without Backrest,Hand Held Shower,Grab Bars In Shower Additional Social History Comment stated that her son and daughter in law lives next door that might be able to help but are not available all the time and that her grandson lives with her but he works. M2 OT-IP Current Condition Start: 02/15/21 14:36 Freq: Status: Active Protocol: Document 02/15/21 14:37 CGR (Rec: 02/15/21 14:51 CGR [id number]) Occupational Therapy Current Condition Current Condition Evaluation Date 02/15/21 Treatment Diagnosis L2-4 TLIF Diagnosis Onset Date 02/14/21 Post Operative Precautions Lumbar Precautions Log Roll,No Twisting,Limit Bending,Lifting Restriction of 10 lbs,Gait Belt above Incisional Area M3 OT- IP Subjective and Pain Start: 02/15/21 14:36 Freq: Status: Active Protocol: Document 02/15/21 14:37 CGR (Rec: 02/15/21 14:51 CGR [id number]) OT- Subjective Occupational Therapy Visit Type Type Initial Evaluation Visit Start Time 10:44 Visit Stop Time 11:22 Total Visit Minutes 38 Notes co-eval with P.T. OT Pain Assessment Pain When Pain Assessed At Rest Pain Present Pain Present Pain Reported Location Lower Back Intensity 9 Scale Used Numeric (0 - 10) Management Techniques Distraction,Modification of Treatment,Re-positioning, Timing of Activity with Medications M4 OT- IP ADL's Start: 02/15/21 14:36 Freq: Status: Active Protocol: Document 02/15/21 14:37 CGR (Rec: 02/15/21 14:51 CGR [id number]) OT [id number] General Evaluation Self-Feeding Ability Standby Assistance Comments OT Self-Feeding Comments with set up for late breakfast OT ADL-Grooming General Evaluation Grooming Ability Standby Assistance Areas Needing Assistance Face Washing Comments OT Grooming Comments seated in chair OT ADL-Oral Care General Eval Oral Care Ability Standby Assistance Areas of Assistance Brushing Teeth Comments Oral Care Comments seated in chair OT ADL-Dressing General Eval Lower Body Dressing Ability Total Assistance Areas Needing Assistance Socks OT ADL-Toileting Comments OT Toileting Comments not performed OT ADL-Bathing Comments OT Bathing Comments not performed M5 OT- IP IADL's Start: 02/15/21 14:36 Freq: Status: Active Protocol: Document 02/15/21 14:37 CGR (Rec: 02/15/21 14:51 CGR [id number]) OT-Instrumental Activities of Daily Living Deficits IADL Deficits Identified Deficits Home Safety Awareness Awareness of Need for Assistance at Home Decreased Awareness Ability to Problem Solve Emergency Able to Problem Solve Situations Medication Management Medication Management No Deficits Identified Money Management Money Management No Deficits Identified Meal Preparation Meal Preparation Comments Concerns for pt's ability to perform Statistician Statistician Comments Concerns for pt's ability to perform Driving Driving Comments Concerns for pt's ability to perform M6 OT- IP Functional Cognition Start: 02/15/21 14:36 Freq: Status: Active Protocol: Document 02/15/21 14:37 CGR (Rec: 02/15/21 14:51 CGR [id number]) Cognitive Factors Limiting Selfcare Function Cognitive Ability Level of Alertness Alert Patient Orientation Name,Age,Birthday,Month,Date, Year,Day of Week,Place, Situation Attention Span Ability Capable of Focused Attention, Capable of Sustained Attention Ability to Follow Commands Able to Follow One Step Commands with Increased Time, Able to Follow One Step Commands with Repetition Cognitive Comments Cognitive Assessment Comments Pt became agitated with instruction on mobility. OT- Vision and Hearing OT- Hearing Assessment OT- Hearing Assessment WFL OT- Vision Assessment Visual Acuity Glasses For Reading Visual Attentiveness WFL Occular Pursuits WFL Visual Convergence WFL M7 OT- IP Mobility and Balance Start: 02/15/21 14:36 Freq: Status: Active Protocol: Document 02/15/21 14:37 CGR (Rec: 02/15/21 14:51 CGR [id number]) OT- Bed Mobility Assessment Rolling Type of Rolling Log Rolling,Roll to Right Level of Assistance Maximum Assistance,1 Person Assistance,2 Person Assistance Supine to Sit Supine to Sit Assist Maximum Assistance,1 Person Assistance,2 Person Assistance Scooting Scooting to Edge of Bed Maximum Assistance,1 Person Assistance OT-Transfer Assessment Sit to and From Stand Sit to and from Stand Maximum Assistance,1 Person Assistance,2 Person Assistance Transfers Transfer Ability Maximum Assistance,1 Person Assistance,2 Person Assistance Technique Transfer Destination Bed,Chair Transfer Technique Stand Step Pivot Devices Transfer Assistive Devices Gait Belt,Front Wheeled Walker Comments Mobility Comments Pt needed extra instruction for log rolling and encouraged to slow down for movement. Pt states 10/10 pain with movement and max x 1 for mobility and second person assist for safety. OT- Gait Assessment Comments Gait Ability Comments did not occur OT- Balance Assessment Sitting Balance and Reactions Static Sitting Balance Ability Fair Dynamic Sitting Balance Ability Fair Standing Balance and Reactions Static Standing Balance Ability Poor Dynamic Standing Balance Ability Poor M8 OT- IP Objective Assessments Start: 02/15/21 14:36 Freq: Status: Active Protocol: Document 02/15/21 14:37 CGR (Rec: 02/15/21 14:51 CGR [id number]) OT Gross Range of Motion Upper Extremity Range of Motion Assessment Within Functional Limits OT Strength Upper Extremity Strength Assessment Within Functional Limits Comments Strength Comments grossly 4-/5 OT- Coordination Assessment Upper Extremity Finger to Nose Test Within Functional Limits Finger Tapping Test Within Functional Limits OT-Muscle Tone Assessment Muscle Tone WNL Yes OT Sensation Assessment Edema Edema Absent M9 OT- IP Assessment and Plan Start: 02/15/21 14:36 Freq: Status: Active Protocol: Document 02/15/21 14:37 CGR (Rec: 02/15/21 14:51 CGR [id number]) OT Summary Assessment and Plan Potential Rehabilitation Potential Good Analytic Complexity at Evaluation Moderate Summary OT Impairments Pain,Balance,Functional Mobility,Grooming,Dressing, Toileting,Bathing,Toilet Transfers,Shower Transfers, Activity Tolerance Progress Towards Goals Slow Progress due to Pain Assessment Summary Pt presents as a moderate complexity evaluation s/p admit for L2-4 TLIF. Pt reports 9-10 pain throughout session and had difficulty following safety instructions. Pt appears frustrated with pain level. Pt performed simple ADLs seated. Pt would benefit from SNF for discharge if pain is not better controlled. Likely pt will be safe for d/c home in a few days with home health and family support. Goals Grooming Goal Independent Dressing Goal Independent Toileting Goal Independent Bathing Goal Independent Toilet Transfer Goal Independent Shower Transfer Goal Independent Days to Meet Goals 10 Frequency of Treatment Frequency Of Treatment Once a Day Treatment Plan OT Treatment Plan ADL Training,Functional Mobility,Patient/Family Education,Discharge Planning Other Treatment Recommendations and Next ADLs standing, toileting, LB Treatment Focus dressing. Discharge Recommendations OT Discharge Recommendations Home vs SNF Transportation Needs at Discharge Wheelchair/Cabulance
--- NOTE | 2021-02-15 13:19 | PT.IPTN ---
Current Diagnoses Spondylolisthesis, lumbar region (02/14/21) Spinal stenosis, lumbar region with neurogenic claudication (02/14/21) Surgery Performed Operation Date: 02/14/21 12:15 Actual Procedures p L2-3, L3-4 TLIF with posterior instrumentation - Gilberto Savage MD Physical Therapy Treatment Note M2 PT-IP Current Condition Start: 02/15/21 13:54 Freq: NEEDED Status: Active Protocol: Document 02/15/21 10:40 AB (Rec: 02/15/21 14:08 AB [id number]) Physical Therapy Current Condition Current Condition Evaluation Date 02/15/21 Treatment Diagnosis s/p L2-3, L3-4 TLIF; difficulty in walking Onset Date 02/14/21 M3 PT-IP Subjective Start: 02/15/21 13:54 Freq: NEEDED Status: Active Protocol: Document 02/15/21 13:19 AB (Rec: 02/15/21 14:13 [facility] Subjective Physical Therapy Visit Type Type Treatment Note Visit Start Time 13:19 Visit Stop Time 13:30 Total Visit Minutes 11 Number of FACILITIES FLIGHT CHECK PILOT Visits 0 Physical Therapy Visit Comments Patient Comments pt requesting to go back to bed per nurse Therapy Pain Assessment Pain When Pain Assessed At Rest Pain Present Pain Present Pain Reported Location Lower Back Intensity 4 Scale Used Numeric (0 - 10) M4 PT-IP Mobility and Gait Start: 02/15/21 13:54 Freq: NEEDED Status: Active Protocol: Document 02/15/21 13:19 AB (Rec: 02/15/21 14:13 AB [id number]) PT-Bed Mobility Assessment Sit to Supine Sit to Supine Moderate Assistance,1 Person Assistance PT-Transfer Assessment Sit to and From Stand Sit to and from Stand Maximum Assistance,2 Person Assistance,Use of Upper Extremities Equipment Transfer Assistive Device Gait Belt,Front Wheeled Walker Orthotic/Prosthetic Devices or Brace: No Transfers Transfer Destination Chair Transfer Technique Stand Step Pivot Transfer Ability Level of Assist Maximum Assistance,1 Person Assistance,Use of Upper Extremities Comments Mobility Comments pt sitting on chair and wants to go back to bed. agreed to do ambulation. BP [id number] 104/59. completed sit to stand max A x2 and max cues. ambulated ~ 2ft but c/o dizziness and wants to sit and instructed to transfer to bed and completed max A and max cues. completed sit to supine mod A and cues. positioned pt in bed. call light and table placed within reach. Gait Assessment Gait Gait Assistance Required: Maximum Assistance,1 Person Assist Distance (Feet) 2 Able to Maintain Weight Bearing Status Yes During Gait Assistive Devices Assistive Device Gait Belt,Front Wheeled Walker Orthotic/Prosthetic Devices or Brace: No Gait Deviations General Gait Pattern Ataxic,Decreased Stride Length ,Decreased Feet Clearance,Step -to Gait Factors Limiting Gait Function Factors Limiting Gait Function Decreased Activity Tolerance, Decreased Strength,Difficulty Following Directions,Limited Range of Motion,Pain,Poor Balance,Poor Safety Awareness M5 PT-IP Objective Assessments Start: 02/15/21 13:54 Freq: NEEDED Status: Active Protocol: Document 02/15/21 10:40 AB (Rec: 02/15/21 14:08 [facility] Orientation Orientation/Cognition Level of Alertness Confusional State Orientation Name Safety Awareness Decreased Safety Awareness Memory Description Short Term Impaired Gross Range of Motion Lower Extremity ROM Assessment Within Functional Limits Strength Lower Extremity Strength Assessment Bilaterally Impaired Hip 3+/5 Knee L: 4-/5 R: 3+/5 Sensation Assessment Sensation Gross Sensation WNL Muscle Tone Muscle Tone WNL Yes M6 PT-IP Treatment Start: 02/15/21 13:54 Freq: NEEDED Status: Active Protocol: Document 02/15/21 13:19 AB (Rec: 02/15/21 14:13 [facility] Physical Therapy Treatment Education Education Provided Precautions,Safety M7 PT-IP Assessment and Plan Start: 02/15/21 13:54 Freq: NEEDED Status: Active Protocol: Document 02/15/21 13:19 AB (Rec: 02/15/21 14:13 [facility] PT Summary Assessment and Plan Potential Rehabilitation Potential Fair Summary Impairments Pain,ROM,Strength,Balance, Coordination,Sensation,Tone, Cognition,Bed Mobility, Transfers,Gait,Activity Tolerance Progress Towards Goals Slow Progress due to Pain,Slow Progress due to Activity Tolerance Assessment Summary pt continues to require max A x 2 with sit to stand but able to step transfer max A and max cues using fWW. pt will need SNF rehab to improve strength and mobiltiy independence. Goals Bed Mobility Goal Standby Assistance Transfer Goal Standby Assistance,Front Wheeled Walker Gait Goal Standby Assistance,Front Wheel Walker Gait Distance 100 Other Goals improve ambulation using 4WW 150 ft SBA up/down 2 steps 2 posts/ supports/ ACTIVITY AIDE min A Days to Meet Goals 10 Frequency of Treatment Frequency Of Treatment Twice a Day Treatment Plan Physical Therapy Treatment Plan Bed Mobility Training,Transfer Training,Gait Training, Therapeutic Exercise,Balance Retraining,Post Op Education, Discharge Planning,Hot or Cold Pack,Neuromuscular Re-ed, Coordination Retraining,Manual Therapy Precautions Lumbar Precautions Log Roll,No Twisting,Limit Bending,Lifting Restriction of 10 lbs,Gait Belt above Incisional Area Recommendations To Nursing Amount of Assist Needed 2 Person Assist Discharge Recommendations PT Discharge Recommendations SNF Rehab Equipment Needed for Home Before FWW if not safe with 4WW Discharge Transportation Needs at Discharge Wheelchair/Cabulance
[2021-02-15] MEDS: ACETAMINOPHEN 325 MG TABLET 650 MG PO (20:15)
[2021-02-15] MEDS: SENNOSIDES 8.6 MG TABLET 17.2 MG PO (20:16)
[2021-02-15] MEDS: ATORVASTATIN 20 MG TABLET PO (20:16)
[2021-02-15] MEDS: SODIUM CHLORIDE 0.9% FLUSH 10 ML IV (20:17)
[2021-02-16] VITALS (8 sets, daily range): BP systolic 111–141; BP diastolic 60–75; PULSE 62–74; RESP 14–18; TEMP 35.8–36.9; O2SAT 90–99
[2021-02-16] MEDS: OXYCODONE IR 5 MG TABLET 10 MG PO ×5 (02:40→16:58)
[2021-02-16] MEDS: hydrOXYzine pamoate 25 MG CAPSULE PO ×2 (02:41→16:58)
[2021-02-16] MEDS: ACETAMINOPHEN 325 MG TABLET 650 MG PO ×2 (05:44→20:13)
[2021-02-16] MEDS: METOPROLOL ER 50 MG TABLET 100 MG PO (08:17)
[2021-02-16] MEDS: POTASSIUM CHLORIDE 20 MEQ TAB PO (08:17)
[2021-02-16] MEDS: lisinopriL 5 MG TABLET PO (08:17)
[2021-02-16] MEDS: FUROSEMIDE 40 MG TABLET PO (08:17)
[2021-02-16] MEDS: DOCUSATE 100 MG CAPSULE PO ×2 (08:17→20:12)
[2021-02-16] MEDS: FERROUS SULFATE 325 MG TABLET PO (08:17)
[2021-02-16] MEDS: dilTIAZem CD 180 MG CAP PO (08:17)
[2021-02-16] MEDS: SODIUM CHLORIDE 0.9% FLUSH 10 ML IV ×3 (08:20→20:14)
--- NOTE | 2021-02-16 09:51 | P.PN_ITS ---
Subjective Subjective Date Patient Seen: 02/16/21 Time Patient Seen: 09:51 Interval history: Postop lumbar spinal fusion. Pain better controlled today. Did have difficulty with therapy and may require halfway discharge. Mayers remains in place this morning. Required IV pain medication overnight. Fevers or chills. Exam Vital Signs (past 8 hours): - 02/16/21 02:39 02/16/21 08:00 02/16/21 09:06 Temperature 97.2 F L 96.4 F L Pulse Rate 70 62 73 Respiratory Rate 18 16 Blood Pressure 127/60 111/63 Pulse Oximetry 91 93 Oxygen Delivery Method Room Air Oxygen Flow Rate 0 Narrative Exam Narrative: Alert oriented no acute distress. Lying in bed. Demonstrates dorsiflexion plantar flexion the bilateral ankles and great toes. was able to turn to the side. Dressing inspected is clean dry and intact. No redness or erythema. Mayers in place with yellow urine. 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 Measles SCC (squamous cell carcinoma) Syncope (~2018) Surgical History Anesthesia History of bilateral tubal ligation History of carpal tunnel surgery of right wrist History of tonsillectomy (~1962) Hx of bilateral cataract extraction Family History Father History of heart disease Mother History of heart disease Hypertension Social History household members: other Smoking Status: Current every day smoker Tobacco: How many years used: 57 quit status: not considering quitting (Too stressed) second hand exposure: Yes alcohol intake: current substance use type: marijuana (Pain relief ) Assessment & Plan Post-op Postoperative Procedures: Procedures Operation Date: 02/14/21 12:15 Actual Procedure Side Surgeon p L2-3, L3-4 TLIF with posterior instrumentation Gilberto Savage MD Postoperative day: 2 Postoperative status: doing well and marginal pain control Postoperative status narrative: Pain seems better controlled today. Postoperative plan narrative: Continue to work with physical therapy. If mobilize as well will get Mayers out. Please work with therapy and determine home with assistance versus SNF Postoperative status narrative: Stable Did have to remain flat initially did a pinhole-sized dural defect but able to mobilize now Multimodal pain management Catheter out when ambulating Mobilize with physical therapy, limit bending, twisting, lifting Disposition today home if does very well versus snf tomorrow Time Spent With Patient Time with patient: less than 15 minutes Quality VTE Deep Vein Thrombosis/Pulmonary Embolism Present on Admission: No
--- NOTE | 2021-02-16 10:40 | PT.IPTN ---
Current Diagnoses Spondylolisthesis, lumbar region (02/14/21) Spinal stenosis, lumbar region with neurogenic claudication (02/14/21) Surgery Performed Operation Date: 02/14/21 12:15 Actual Procedures p L2-3, L3-4 TLIF with posterior instrumentation - Gilberto Savage MD Physical Therapy Treatment Note M2 PT-IP Current Condition Start: 02/15/21 13:54 Freq: NEEDED Status: Active Protocol: Document 02/15/21 10:40 AB (Rec: 02/15/21 14:08 AB [id number]) Physical Therapy Current Condition Current Condition Evaluation Date 02/15/21 Treatment Diagnosis s/p L2-3, L3-4 TLIF; difficulty in walking Onset Date 02/14/21 M3 PT-IP Subjective Start: 02/15/21 13:54 Freq: NEEDED Status: Active Protocol: Document 02/16/21 10:20 AW (Rec: 02/16/21 10:39 AW [id number]) Subjective Physical Therapy Visit Type Type Treatment Note Visit Start Time 10:02 Visit Stop Time 10:20 Total Visit Minutes 18 Notes SPT Toña was present and participated in PT tx Number of BOOK CUTTER Visits 0 Physical Therapy Visit Comments Patient Comments Pt is agreeable to work with PT Patient Goals Pt is considering SNF rehab but is worried about her 16 yo cat at home. Therapy Pain Assessment Pain When Pain Assessed At Rest Pain Present Pain Present Reassessed Location Lower Back Intensity 10 Scale Used Numeric (0 - 10) Pain Behaviors Restlessness,Wincing Pain Management Techniques Distraction,Modification of Treatment,Re-positioning, Timing of Activity with Medications M4 PT-IP Mobility and Gait Start: 02/15/21 13:54 Freq: NEEDED Status: Active Protocol: Document 02/16/21 10:20 AW (Rec: 02/16/21 10:39 AW [id number]) PT-Bed Mobility Assessment Rolling Type of Rolling Log Rolling,Roll to Right Level of Assist Minimal Assistance,1 Person Assistance Supine to Sit Supine to Sit Moderate Assistance,1 Person Assistance Scooting Scooting to Edge of Bed Moderate Assistance PT-Transfer Assessment Sit to and From Stand Sit to and from Stand Moderate Assistance,2 Person Assistance,Use of Upper Extremities Equipment Transfer Assistive Device Gait Belt,Front Wheeled Walker Orthotic/Prosthetic Devices or Brace: No Transfers Transfer Destination Chair Transfer Technique Stand Step Pivot Transfer Ability Level of Assist Moderate Assistance,2 Person Assistance,Use of Upper Extremities Comments Mobility Comments Pt agreed to get up but needed cues for log roll form and mod assist to right her trunk once sidelying. She complained of increased pain in sitting and needed assist to scoot toward EOB. She sat and responded well to cues for deep breathing. Sit to stand was mod A x 2 and pt stood ~45 seconds before stating LLE pain was too much and she needed to sit on the bed. After a brief rest, pt agreed to transfer to the chair set up on her right side, requiring mod A x 2 for sit to stand and transfer. Pt was impulsive and sat with poor control, needing assist for stability. Pt was positioned with legs elevated, ice pack on lumbar region, call light and tray table in reach. Gait Assessment Gait Gait Assistance Required: Moderate Assistance,2 Person Assist Distance (Feet) 2 Able to Maintain Weight Bearing Status Yes During Gait Assistive Devices Assistive Device Gait Belt,Front Wheeled Walker Orthotic/Prosthetic Devices or Brace: No Gait Deviations General Gait Pattern Antalgic,Decreased Stride Length,Decreased Feet Clearance,Step-to Gait Factors Limiting Gait Function Factors Limiting Gait Function Decreased Activity Tolerance, Decreased Strength,Difficulty Following Directions,Limited Range of Motion,Pain,Poor Balance,Poor Safety Awareness Comments Gait Comments Steps taken during transfer only. M5 PT-IP Objective Assessments Start: 02/15/21 13:54 Freq: NEEDED Status: Active Protocol: Document 02/15/21 10:40 AB (Rec: 02/15/21 14:08 AB [id number]) Orientation Orientation/Cognition Level of Alertness Confusional State Orientation Name Safety Awareness Decreased Safety Awareness Memory Description Short Term Impaired Gross Range of Motion Lower Extremity ROM Assessment Within Functional Limits Strength Lower Extremity Strength Assessment Bilaterally Impaired Hip 3+/5 Knee L: 4-/5 R: 3+/5 Sensation Assessment Sensation Gross Sensation WNL Muscle Tone Muscle Tone WNL Yes M6 PT-IP Treatment Start: 02/15/21 13:54 Freq: NEEDED Status: Active Protocol: Document 02/16/21 10:20 AW (Rec: 02/16/21 10:39 AW [id number]) Physical Therapy Treatment Education Education Provided Precautions,Safety Other Treatments Other Treatment Performed Pt requires cues to recall back precautions and log roll bed mobility. M7 PT-IP Assessment and Plan Start: 02/15/21 13:54 Freq: NEEDED Status: Active Protocol: Document 02/16/21 10:20 AW (Rec: 02/16/21 10:39 AW [id number]) PT Summary Assessment and Plan Potential Rehabilitation Potential Fair Summary Impairments Pain,ROM,Strength,Balance, Coordination,Sensation,Tone, Cognition,Bed Mobility, Transfers,Gait,Activity Tolerance Progress Towards Goals Slow Progress due to Pain,Slow Progress due to Activity Tolerance Assessment Summary Pt requiring mod A x 2 for sit to stand and transfer. She is unable to tolerate ambulation secondary to LLE and low back pain. Pt needs SNF rehab to improve mobility independence and strength. Goals Bed Mobility Goal Standby Assistance Transfer Goal Standby Assistance,Front Wheeled Walker Gait Goal Standby Assistance,Front Wheel Walker Gait Distance 100 Other Goals improve ambulation using 4WW 150 ft SBA up/down 2 steps 2 posts/ supports/ COVER CREASER min A Days to Meet Goals 10 Frequency of Treatment Frequency Of Treatment Twice a Day Treatment Plan Physical Therapy Treatment Plan Bed Mobility Training,Transfer Training,Gait Training, Therapeutic Exercise,Balance Retraining,Post Op Education, Discharge Planning,Hot or Cold Pack,Neuromuscular Re-ed, Coordination Retraining,Manual Therapy Other Recommendations and Next Treatment ambulation Focus Precautions Lumbar Precautions Log Roll,No Twisting,Limit Bending,Lifting Restriction of 10 lbs,Gait Belt above Incisional Area Recommendations To Nursing Amount of Assist Needed 2 Person Assist Discharge Recommendations PT Discharge Recommendations SNF Rehab Equipment Needed for Home Before FWW if not safe with 4WW Discharge Transportation Needs at Discharge Wheelchair/Cabulance
--- NOTE | 2021-02-16 15:39 | CM.DANOTE ---
DCP/Assessment: Reviewed chart. Patient is a 69yr old male [facility] on 02-14-21. PCP is Dr. Roberson. Primary payor is 1)Medicare 2)[facility]. Met with patient this AM explained CM/SW role. Patient reports that right now she is struggling with pain and ambulation. Current therapy recommendation is SNF. Patient agreeable to SNF and first choice is [facility]. Patient also open to home health if she feels better and able to ambulate to/from bathroom prior to d/c. Patient lives with grandson (whom works and cannot be there all the time). Patient has FWW for home and uses prior to admit for long distance walking. FINANCE INTERN placed call to [facility] requesting the review for admit. Patient will qualify under medicare guidelines to go to SNF as of 02-17-21. P: Pending. At this time anticipate patient will go to SNF. CM following closely. If patient improves significantly may d/c home with home health? CÉSAR Discharge Planning/Care Management CM Discharge Assessment Start: 02/15/21 16:28 Freq: Status: Active Protocol: Document 02/16/21 14:55 KJS (Rec: 02/16/21 15:39 KJS [id number]) Discharge Planning Assessment Assigned Advertising Internship VLADIMIR Velasquez Contact Information Levi Macias (son) ph# Advance Directives? Yes Advance Directives on File No History Provided By Patient,Medical Record Prior Living Arrangements House Household Members family Comment Patient's grandson/Ubrt resides with her. Type of transporation used prior to Drives own vehicle admit Independent with ADL's Yes: Patient I prior to admit. Is patient alert and oriented? Yes Needs Assistance With Meal Prep,Home Chores / Shopping Caregiver for Another No DME Already Rented / Owned FWW / Walker Patient/Family Preference [facility] Facility Barriers to Discharge No Discharge Plan [facility] Facility Transportation Arrangement Family or facility to provide transport. Referrals Initiated [facility] Has Agency SNF been contacted Yes Comment First choice is [facility] if SNF continues to be recommended. Whiteboard Updated in Patient Room with Yes name and ext. # of Advertising Internship Review Status In Process Next Review Type Continued Stay Review Pre-Anesthesia Assessment Start: 02/04/21 07:47 Freq: Status: Complete Protocol: Document 02/05/21 08:47 [facility] (Rec: 02/04/21 09:11 CAB [id number]) Pre-Anesthesia Assessment PAC Comment High anxiety Patient Information Reviewed Via Phone Assessment Assessment Completed With Patient Diagnostic Results BMP/CMP,CBC,EKG Comment Labs @ 01/24/21, outside EKG scanned, COVID screen @ 02/12/21 Primary Care Provider Kenny Roberson Seen Specialist in Last 12 Months Yes Specialist Seen Assistant Project Engineer,Volleyball Assembler, Orthopedist Primary Language South African Arson Investigator Required No Height 157.48 cm Weight 63.503 kg Body Mass Index (BMI) 25.6 Hearing Ability Normal Visual Assist Glasses Dentition Type Teeth, Natural Present,Teeth, Missing Barriers to Learning None Comment Loose tooth lower left Hx Anesthesia Reactions No Hx Family Anesthesia Reaction No Hx Malignant Hyperthermia No Hx Blood Transfusions No Anesthesia Review Requested No alcohol intake current alcohol intake frequency holidays/special occasions only Smoking Status Current every day smoker Tobacco type cigarettes Smoking packs per day 0.75 Substance Use Type marijuana Comment Pt advised not to smoke marijuana 24 hours prior to surgery Pain Present Pain Reported Musculoskeletal Symptoms Abnormal Gait,Back Pain, Difficulty Walking,Muscle Cramps,Radiating Pain into Limb History of Falling (Recent or History of No ) Patient is completely paralyzed or No completely immobile Prosthesis or Orthotic Device Front Wheel Walker Mental Status Oriented to own ability Is patient on oxygen? No Does patient have VALDEZ/SOB Yes: Occasional Hx Sleep Apnea No Currently Taking a Beta Luisana Yes: Metoprolol Hx Chest Pain No Hx SOB Yes: Occasional Hx Syncope or Dizziness Yes: Occasional lightheaded with quick position changes Anti-Coagulant Therapy Yes: [place]-advised to hold 48 hours prior per Cardiology Has a Assistant Project Engineer Yes: Dr. Hernandez-SRC visit 01/23 Cardiac Testing Yes: Nuc scan @ 10/16/20 Hx Pacemaker/ICD No Pacemaker Rep Required? No Cardiac Clearance Received Yes Comment Cardiac records scanned Diet Type At Home Regular dysphagia No Gastrointestinal Symptoms Reflux Urinary Catheter Present No Hx Urinary Self Catheterization No Diabetes No Patient No Lactating No Presence of External or Internal Medical Yes: Bilat IOLs Devices Have you had any close contact with No someone diagnosed with COVID-19? Received a COVID vaccine? Yes Received all doses? Yes Marital Status / Lives With none Prior Living Arrangements House Number of Floors (Floors) Two Floors Support System Child/Children Does the Patient Have Assistance After Yes Surgery Patient Discharge Plan Description Return Home Comment Pt not advised on length of stay per surgeon Feels Safe in Current Environment Yes Been Physically Hurt or Threatened By a No Person in Current Environment Do you have thoughts of harming yourself None or others? Are you currently considering suicide? No Do you have a plan to hurt yourself or No Plan others? Do You Have Any Spiritual Beliefs That No May Affect Your HC Choices? Do You Have Any Cultural Practices That No May Affect Your HC Choices? Comment Synagogue Who Can We Speak to About Patient's Care Family, friends Identifying Code for Release of Patient Declines to issue Information Health Care Proxy/Next of Kin Levi (son) Baylee ( daughter) Laura (daughter) Health Care Proxy Phone Number Levi: [phone] Baylee : [phone] Laura: [phone] Emergency Contact Name eLvi (son) Baylee ( daughter) Laura (daughter) Emergency Contact Phone Number Levi: [phone] Baylee : [phone] Laura: [phone] Advance Directives? Yes Advance Directives on File No Requested Patient Bring Advanced Yes Directives DOS Power of Career Transition Specialist Yes Power of Career Transition Specialist Name Levi (son) Power of Career Transition Specialist PAC Instructions Durable medical equipment, Medications to take/avoid, Nasal antibiotic,No ETOH/ petroleum product on skin DOS, NPO,Post-op transportation,Pre -surgical wash,Sturdy shoes/ comfortable clothes,Do not bring valuables and remove jewelry
--- NOTE | 2021-02-16 16:58 | PT-IP ANOTE ---
Attempted to work with pt this PM but she had just returned to bed and refused further mobility. Will follow up Wednesday.
[2021-02-16] MEDS: HYDROMORPHONE 0.5 MG INJ IV ×2 (17:16→20:14)
[2021-02-16] MEDS: ALPRAZolam 0.25 MG TABLET PO (20:12)
[2021-02-16] MEDS: SENNOSIDES 8.6 MG TABLET 17.2 MG PO (20:12)
[2021-02-16] MEDS: ATORVASTATIN 20 MG TABLET PO (20:12)
[2021-02-16] MEDS: SODIUM CHLORIDE 0.9% 1,000 ML 100 ML IV (20:34)
[2021-02-16] MEDS: HYDROCODONE/ACET 10/325 TABLET 1 TAB PO (21:44)
[2021-02-17] VITALS (9 sets, daily range): BP systolic 102–144; BP diastolic 57–78; PULSE 66–84; RESP 14–18; TEMP 36.3–37.1; O2SAT 93–97
[2021-02-17] MEDS: HYDROMORPHONE 0.5 MG INJ IV ×2 (02:51→20:10)
[2021-02-17] MEDS: hydrOXYzine pamoate 25 MG CAPSULE PO (02:53)
[2021-02-17] MEDS: OXYCODONE IR 5 MG TABLET 10 MG PO (05:27)
[2021-02-17] MEDS: LORazepam 2 MG/ML INJ 0.5 MG IV (05:27)
--- NOTE | 2021-02-17 07:06 | PC.NURSE ---
alert, oriented. voices needs, uses call light appropriately. reports increased pain w/ movement, back spasms. thru the noc her BTP and spasms fairly controlled by oxycodone, relaxers, dilauded. allowed ice pack and turned onto side for about 2 hours. sats 89% at begin of shift, o2 applied via NC, o2 sats above 95 rest of shift. lowery patent, draining clear yellow urine. NS at 100/hour via L hand PIV. call light w/in reach.
--- NOTE | 2021-02-17 07:38 | PM.PNPO.1 ---
Subjective Subjective Date Patient Seen: 02/17/21 Time Patient Seen: 07:38 Interval history: The patient is complaining of severe low back pain this morning. She has only been able to get up and sit in the chair twice. She has been unable to work extensively with physical therapy. She still has a catheter and is on oxygen. She has a chronic pain management patient and has been taking 3 tablets of [place] 10s daily for the last 15 months. She denies any new numbness or tingling. Exam Vital Signs (past 8 hours): - 02/17/21 05:23 02/17/21 06:35 Temperature 97.9 F Pulse Rate 66 66 Respiratory Rate 17 14 Blood Pressure 137/66 137/66 Pulse Oximetry 97 Oxygen Delivery Method Nasal Cannula Oxygen Flow Rate 2 Narrative Exam Narrative: 75-year-old female, resting comfortably in bed, mild distress due to pain. Bandage is clean dry intact. Bilateral lower extremity motor functions are grossly intact. Sensation is grossly intact to light touch in bilateral lower extremities. Calves are soft, nontender to palpation. 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 Measles SCC (squamous cell carcinoma) Syncope (~2018) Surgical History Anesthesia History of bilateral tubal ligation History of carpal tunnel surgery of right wrist History of tonsillectomy (~1962) Hx of bilateral cataract extraction Family History Father History of heart disease Mother History of heart disease Hypertension Social History household members: family Smoking Status: Current every day smoker Tobacco: How many years used: 57 quit status: not considering quitting (Too stressed) second hand exposure: Yes alcohol intake: current substance use type: marijuana (Pain relief ) Assessment & Plan Post-op Postoperative Procedures: Procedures Operation Date: 02/14/21 12:15 Actual Procedure Side Surgeon p L2-3, L3-4 TLIF with posterior instrumentation Gilberto Savage MD Postoperative day: 3 Postoperative status: marginal pain control Postoperative status narrative: Slow progress status post L2-3, L3-4 TLIF -small intraoperative dural tear Postoperative plan narrative: -we will change up her pain regimen. Discontinue [place] and Oxy 10. We will change to tramadol as well as Dilaudid. -mobilize with PT. Limit bending, lifting, twisting. Weightbearing as tolerated front wheel walker -of the patient notes she has no dizziness or lightheadedness. No headache with sitting up. -removed catheter when she is mobilizing better. -DC to SNF likely tomorrow Quality VTE Deep Vein Thrombosis/Pulmonary Embolism Present on Admission: No
[2021-02-17] MEDS: HYDROMORPHONE 1 MG INJ IV ×2 (08:22→13:45)
[2021-02-17] MEDS: FERROUS SULFATE 325 MG TABLET PO (09:29)
[2021-02-17] MEDS: DOCUSATE 100 MG CAPSULE PO ×2 (09:29→20:10)
[2021-02-17] MEDS: dilTIAZem CD 180 MG CAP PO (09:29)
[2021-02-17] MEDS: POTASSIUM CHLORIDE 20 MEQ TAB PO (09:30)
[2021-02-17] MEDS: FUROSEMIDE 40 MG TABLET PO (09:30)
[2021-02-17] MEDS: METOPROLOL ER 50 MG TABLET 100 MG PO (09:30)
[2021-02-17] MEDS: HYDROMORPHONE 4 MG TABLET PO ×3 (09:30→17:34)
[2021-02-17] MEDS: lisinopriL 5 MG TABLET PO (09:30)
[2021-02-17] MEDS: SODIUM CHLORIDE 0.9% FLUSH 10 ML IV (11:21)
--- NOTE | 2021-02-17 11:52 | PT.IPTN ---
Current Diagnoses Spondylolisthesis, lumbar region (02/14/21) Spinal stenosis, lumbar region with neurogenic claudication (02/14/21) Surgery Performed Operation Date: 02/14/21 12:15 Actual Procedures p L2-3, L3-4 TLIF with posterior instrumentation - Gilberto Savage MD Physical Therapy Treatment Note M2 PT-IP Current Condition Start: 02/15/21 13:54 Freq: NEEDED Status: Active Protocol: Document 02/15/21 10:40 AB (Rec: 02/15/21 14:08 AB [id number]) Physical Therapy Current Condition Current Condition Evaluation Date 02/15/21 Treatment Diagnosis s/p L2-3, L3-4 TLIF; difficulty in walking Onset Date 02/14/21 M3 PT-IP Subjective Start: 02/15/21 13:54 Freq: NEEDED Status: Active Protocol: Document 02/17/21 11:37 KS (Rec: 02/17/21 12:51 KS [id number]) Subjective Physical Therapy Visit Type Type Treatment Note Visit Start Time 11:37 Visit Stop Time 11:52 Total Visit Minutes 15 Number of BANKRUPTCY MANAGER Visits 1 Physical Therapy Visit Comments Patient Comments Pt is agreeable to work with PT, but reporting 10/10 pain. Patient Goals Pt is considering SNF rehab but is worried about her 16 yo cat at home. Therapy Pain Assessment Pain When Pain Assessed At Rest Pain Present Pain Present Pain Reported Location Lower Back Intensity 10 Scale Used Numeric (0 - 10) Pain Behaviors Calling Out,Facial Grimacing, Moaning,Restlessness,Wincing Pain Management Techniques Distraction,Modification of Treatment,Re-positioning, Timing of Activity with Medications M4 PT-IP Mobility and Gait Start: 02/15/21 13:54 Freq: NEEDED Status: Active Protocol: Document 02/17/21 11:37 KS (Rec: 02/17/21 12:51 KS [id number]) PT-Bed Mobility Assessment Rolling Type of Rolling Log Rolling,Roll to Left Level of Assist Minimal Assistance,1 Person Assistance Supine to Sit Supine to Sit Moderate Assistance,1 Person Assistance Sit to Supine Sit to Supine Moderate Assistance,1 Person Assistance Scooting Scooting to Edge of Bed Moderate Assistance PT-Transfer Assessment Sit to and From Stand Sit to and from Stand Moderate Assistance,2 Person Assistance,Use of Upper Extremities Equipment Transfer Assistive Device Gait Belt,Front Wheeled Walker Orthotic/Prosthetic Devices or Brace: No Transfers Transfer Destination Bed Transfer Technique Pt took steps laterally w/ FWW Transfer Ability Level of Assist Moderate Assistance,2 Person Assistance,Use of Upper Extremities Comments Mobility Comments Pt in bed upon arrival from therapy and DATA PROCESSING MANAGER and reporting 10/10 pain. Able to recall 1/3 spinal precautions (no lifting). Min A for logroll to L, Mod A max cues for sidelying to sit and scooting EOB. Pt was calling out in pain and not maintaining no twisting precaution. She initially agreed to transfer to chair for lunch, but upon sitting up asked to lay back down due to pain. Pt agreed to stand and step laterally due to position in bed. Mod A x2 for sit<>stand w/ FWW, Mod A and cues for 4 steps laterally towards the HOB. Pt Mod A for sit<>sidelying and decided to remain sidelying in bed due to pain. Pt left in bed w/ alarm on and all needs in reach. Gait Assessment Gait Gait Assistance Required: Moderate Assistance,2 Person Assist Distance (Feet) 4 Able to Maintain Weight Bearing Status Yes During Gait Assistive Devices Assistive Device Gait Belt,Front Wheeled Walker Orthotic/Prosthetic Devices or Brace: No Gait Deviations General Gait Pattern Antalgic,Decreased Stride Length,Decreased Feet Clearance,Step-to Gait Factors Limiting Gait Function Factors Limiting Gait Function Decreased Activity Tolerance, Decreased Strength,Difficulty Following Directions,Limited Range of Motion,Pain,Poor Balance,Poor Safety Awareness Comments Gait Comments Steps taken laterally during transfer only. PT-Balance Assessment Sitting Balance and Reactions Static Sitting Balance Ability Fair Dynamic Sitting Balance Ability Fair Standing Balance and Reactions Static Standing Balance Ability Poor Dynamic Standing Balance Ability Poor Device Used FWW M5 PT-IP Objective Assessments Start: 02/15/21 13:54 Freq: NEEDED Status: Active Protocol: Document 02/15/21 10:40 AB (Rec: 02/15/21 14:08 AB [id number]) Orientation Orientation/Cognition Level of Alertness Confusional State Orientation Name Safety Awareness Decreased Safety Awareness Memory Description Short Term Impaired Gross Range of Motion Lower Extremity ROM Assessment Within Functional Limits Strength Lower Extremity Strength Assessment Bilaterally Impaired Hip 3+/5 Knee L: 4-/5 R: 3+/5 Sensation Assessment Sensation Gross Sensation WNL Muscle Tone Muscle Tone WNL Yes M6 PT-IP Treatment Start: 02/15/21 13:54 Freq: NEEDED Status: Active Protocol: Document 02/17/21 11:37 KS (Rec: 02/17/21 12:51 KS [id number]) Physical Therapy Treatment Education Education Provided Precautions,Safety Other Treatments Other Treatment Performed Pt requires cues to recall back precautions and log roll bed mobility. Does not maintain no twisting precaution despite cues. M7 PT-IP Assessment and Plan Start: 02/15/21 13:54 Freq: NEEDED Status: Active Protocol: Document 02/17/21 11:37 KS (Rec: 02/17/21 12:51 KS [id number]) PT Summary Assessment and Plan Potential Rehabilitation Potential Fair Summary Impairments Pain,ROM,Strength,Balance, Coordination,Sensation,Tone, Cognition,Bed Mobility, Transfers,Gait,Activity Tolerance Progress Towards Goals Slow Progress due to Pain,Slow Progress due to Activity Tolerance Assessment Summary Pt continues to require Mod A x1-2 for bed mobility and transfers. Only able to tolerate 4 steps laterally due to 10/10 reported back pain and refused transfer to chair due to pain. Pt has difficulty recalling spinal precautions and occasionally breaks no twisting precautions even with cues. She will require SNF to improve tolerance for activity and functional mobility. Goals Bed Mobility Goal Standby Assistance Transfer Goal Standby Assistance,Front Wheeled Walker Gait Goal Standby Assistance,Front Wheel Walker Gait Distance 100 Other Goals improve ambulation using 4WW 150 ft SBA up/down 2 steps 2 posts/ supports/ WOODS MANAGER min A Days to Meet Goals 10 Frequency of Treatment Frequency Of Treatment Twice a Day Treatment Plan Physical Therapy Treatment Plan Bed Mobility Training,Transfer Training,Gait Training, Therapeutic Exercise,Balance Retraining,Post Op Education, Discharge Planning,Hot or Cold Pack,Neuromuscular Re-ed, Coordination Retraining,Manual Therapy Other Recommendations and Next Treatment ambulation, review precautions Focus Precautions Lumbar Precautions Log Roll,No Twisting,Limit Bending,Lifting Restriction of 10 lbs,Gait Belt above Incisional Area Recommendations To Nursing Amount of Assist Needed 2 Person Assist Discharge Recommendations PT Discharge Recommendations SNF Rehab Equipment Needed for Home Before FWW if not safe with 4WW Discharge Transportation Needs at Discharge Wheelchair/Cabulance
--- NOTE | 2021-02-17 14:06 | PT.IPTN ---
Current Diagnoses Spondylolisthesis, lumbar region (02/14/21) Spinal stenosis, lumbar region with neurogenic claudication (02/14/21) Surgery Performed Operation Date: 02/14/21 12:15 Actual Procedures p L2-3, L3-4 TLIF with posterior instrumentation - Gilberto Savage MD Physical Therapy Treatment Note M2 PT-IP Current Condition Start: 02/15/21 13:54 Freq: NEEDED Status: Active Protocol: Document 02/15/21 10:40 AB (Rec: 02/15/21 14:08 AB [id number]) Physical Therapy Current Condition Current Condition Evaluation Date 02/15/21 Treatment Diagnosis s/p L2-3, L3-4 TLIF; difficulty in walking Onset Date 02/14/21 M3 PT-IP Subjective Start: 02/15/21 13:54 Freq: NEEDED Status: Active Protocol: Document 02/17/21 13:46 KS (Rec: 02/17/21 14:19 KS [id number]) Subjective Physical Therapy Visit Type Type Treatment Note Visit Start Time 13:46 Visit Stop Time 14:06 Total Visit Minutes 20 Number of SENIOR BIOINFORMATICS SCIENTIST Visits 2 Physical Therapy Visit Comments Patient Comments Pt is agreeable to work with PT, but reporting 10/10 pain. Patient Goals Pt is considering SNF rehab but is worried about her 16 yo cat at home. M4 PT-IP Mobility and Gait Start: 02/15/21 13:54 Freq: NEEDED Status: Active Protocol: Document 02/17/21 13:46 KS (Rec: 02/17/21 14:19 KS [id number]) PT-Bed Mobility Assessment Supine to Sit Supine to Sit Moderate Assistance,1 Person Assistance Scooting Scooting to Edge of Bed Minimal Assistance PT-Transfer Assessment Sit to and From Stand Sit to and from Stand Moderate Assistance,1 Person Assistance,Use of Upper Extremities Equipment Transfer Assistive Device Gait Belt,Front Wheeled Walker Orthotic/Prosthetic Devices or Brace: No Transfers Transfer Destination Bed Transfer Technique Stand Step Pivot Transfer Ability Level of Assist Moderate Assistance,1 Person Assistance,Use of Upper Extremities Comments Mobility Comments Pt sidelying in bed upon arrival from therapy, reporting 10/10 pain but agreeable to transfer to chair in effort to decrease pain. Pt able to recall 2/3 precautions (no twisting). Mod A and cues for sidelying<>sit , Min A for scooting EOB. Pt calling out in pain throughout . Pt unable to stand on first attempt due to pain, cued for depe breathing, able to maintain seated balance 2 min EOB CGA. On second attempt, pt sit<>stand Mod A w/ FWW and completed stand step pivot from bed to chair Mod A and cues for sequencing and FWW management. Mod A for slow descent stand<>Sit. Pt left in chair w/ all needs in reach, chair alarm on and VIAL GAUGER in room . Refused further treatment due to pain. Gait Assessment Gait Gait Assistance Required: Moderate Assistance,1 Person Assist Distance (Feet) 3 Able to Maintain Weight Bearing Status Yes During Gait Assistive Devices Assistive Device Gait Belt,Front Wheeled Walker Orthotic/Prosthetic Devices or Brace: No Gait Deviations General Gait Pattern Antalgic,Decreased Stride Length,Decreased Feet Clearance,Step-to Gait Factors Limiting Gait Function Factors Limiting Gait Function Decreased Activity Tolerance, Decreased Strength,Difficulty Following Directions,Limited Range of Motion,Pain,Poor Balance,Poor Safety Awareness Comments Gait Comments Stand step pivot w/ FWW only. Will plan to progress gait tomorrow. PT-Balance Assessment Sitting Balance and Reactions Static Sitting Balance Ability Fair Dynamic Sitting Balance Ability Fair Standing Balance and Reactions Static Standing Balance Ability Poor Dynamic Standing Balance Ability Poor Device Used FWW M5 PT-IP Objective Assessments Start: 02/15/21 13:54 Freq: NEEDED Status: Active Protocol: Document 02/15/21 10:40 AB (Rec: 02/15/21 14:08 AB [email or web address]) Orientation Orientation/Cognition Level of Alertness Confusional State Orientation Name Safety Awareness Decreased Safety Awareness Memory Description Short Term Impaired Gross Range of Motion Lower Extremity ROM Assessment Within Functional Limits Strength Lower Extremity Strength Assessment Bilaterally Impaired Hip 3+/5 Knee L: 4-/5 R: 3+/5 Sensation Assessment Sensation Gross Sensation WNL Muscle Tone Muscle Tone WNL Yes M6 PT-IP Treatment Start: 02/15/21 13:54 Freq: NEEDED Status: Active Protocol: Document 02/17/21 13:46 KS (Rec: 02/17/21 14:19 KS [id number]) Physical Therapy Treatment Education Education Provided Precautions,Safety M7 PT-IP Assessment and Plan Start: 02/15/21 13:54 Freq: NEEDED Status: Active Protocol: Document 02/17/21 13:46 KS (Rec: 02/17/21 14:19 KS [id number]) PT Summary Assessment and Plan Potential Rehabilitation Potential Fair Summary Impairments Pain,ROM,Strength,Balance, Coordination,Sensation,Tone, Cognition,Bed Mobility, Transfers,Gait,Activity Tolerance Progress Towards Goals Slow Progress due to Pain,Slow Progress due to Activity Tolerance Assessment Summary Pt showed some improvements w/ transfer this PM. Mod A for sidelyin<>Sit, Mod A for sit<> Stand and able to complete stand step pivot transfer Mod A and cues. Pt refused further ambulation, but agrees to try tomorrow. Pt continues to be limited by high reporting pain and low tolerance for activity and will require SNF to improve functional mobility . Goals Bed Mobility Goal Standby Assistance Transfer Goal Standby Assistance,Front Wheeled Walker Gait Goal Standby Assistance,Front Wheel Walker Gait Distance 100 Other Goals improve ambulation using 4WW 150 ft SBA up/down 2 steps 2 posts/ supports/ SUPERINTENDENT COMMISSARY min A Days to Meet Goals 10 Frequency of Treatment Frequency Of Treatment Twice a Day Treatment Plan Physical Therapy Treatment Plan Bed Mobility Training,Transfer Training,Gait Training, Therapeutic Exercise,Balance Retraining,Post Op Education, Discharge Planning,Hot or Cold Pack,Neuromuscular Re-ed, Coordination Retraining,Manual Therapy Other Recommendations and Next Treatment ambulation, review precautions Focus Precautions Lumbar Precautions Log Roll,No Twisting,Limit Bending,Lifting Restriction of 10 lbs,Gait Belt above Incisional Area Recommendations To Nursing Amount of Assist Needed 2 Person Assist Discharge Recommendations PT Discharge Recommendations SNF Rehab Equipment Needed for Home Before FWW if not safe with 4WW Discharge Transportation Needs at Discharge Wheelchair/Cabulance
--- NOTE | 2021-02-17 14:55 | CM.DPC ---
DCP/continued: Reviewed chart. Patient accepted at [facility] when medically stable. Will request that CARE MANAGEMENT ASSOCIATE look up vaccination status for COVID. P: Anticipate d/c to [facility] when medically stable. CÉSAR
[2021-02-17] MEDS: ONDANSETRON 4 MG/2 ML INJ IV (17:42)
--- NOTE | 2021-02-17 18:50 | PC.NURSE ---
Pt vacillates between severe pain and sleep throughout morning and early afternoon; PO dilaudid administered Q4, IV pain med for breakthrough pain; this RN provided education regarding need for movement, deep breathing, and wakefulness in addition to pain control; late afternoon, pt transferred to chair; pt drank most of protein Ensure and. 2-asst back to bed; SCDs active, call light within reach
[2021-02-17] MEDS: ACETAMINOPHEN 325 MG TABLET 650 MG PO (20:09)
[2021-02-17] MEDS: ALPRAZolam 0.25 MG TABLET PO (20:09)
[2021-02-17] MEDS: SENNOSIDES 8.6 MG TABLET 17.2 MG PO (20:10)
[2021-02-17] MEDS: ATORVASTATIN 20 MG TABLET PO (20:10)
[2021-02-18] VITALS (7 sets, daily range): BP systolic 111–132; BP diastolic 59–74; PULSE 70–87; RESP 14–18; TEMP 36.4–36.7; O2SAT 93–100
[2021-02-18] MEDS: hydrOXYzine pamoate 25 MG CAPSULE PO ×2 (03:11→08:42)
[2021-02-18] MEDS: HYDROMORPHONE 2 MG TABLET PO ×2 (03:11→18:43)
--- NOTE | 2021-02-18 08:27 | PM.PNPO.1 ---
Subjective Subjective Date Patient Seen: 02/18/21 Time Patient Seen: 08:27 Interval history: Patient's pain is severe. Denies fever or chills. No nausea or vomiting. Denies headache. No shortness of breath or chest pain. Exam Vital Signs (past 8 hours): - 02/18/21 02:15 Temperature 98 F Pulse Rate 70 Respiratory Rate 18 Blood Pressure 120/70 Pulse Oximetry 93 Oxygen Delivery Method Room Air,Nasal Cannula Oxygen Flow Rate 2 Narrative Exam Narrative: 75-year-old female resting in bedside chair in apparent discomfort. Motor function is intact bilateral lower extremities. Sensation grossly intact to light touch bilateral lower extremities. Both calves are soft and nontender to palpation. Her legs are warm and dry. Dressing is Clean, dry, intact. 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 Measles SCC (squamous cell carcinoma) Syncope (~2017) Surgical History Anesthesia History of bilateral tubal ligation History of carpal tunnel surgery of right wrist History of tonsillectomy (~1962) Hx of bilateral cataract extraction Family History Father History of heart disease Mother History of heart disease Hypertension Social History household members: family Smoking Status: Current every day smoker Tobacco: How many years used: 57 quit status: not considering quitting (Too stressed) second hand exposure: Yes alcohol intake: current substance use type: marijuana (Pain relief ) Assessment & Plan Post-op Postoperative Procedures: Procedures Operation Date: 02/14/21 12:15 Actual Procedure Side Surgeon p L2-3, L3-4 TLIF with posterior instrumentation Gilberto Savage MD Postoperative day: 5 Postoperative status narrative: 75-year-old with chronic pain syndrome now having difficulty managing postop pain. History of anemia with current postop anemia due to surgery, recheck H&H. Patient is also on anticoagulants which have been held after surgery and will discuss with Dr. Savage when to restart. Postoperative plan narrative: Multimodal pain management. Discontinued hydroxyzine and tramadol. Add OxyContin 10 mg b.i.d. and Valium 5 mg q.6 hours as needed Recheck H&H Mobilize with physical therapy, limit bending, twisting, lifting Disposition likely senior living facility tomorrow Quality VTE Deep Vein Thrombosis/Pulmonary Embolism Present on Admission: No
[2021-02-18] MEDS: HYDROMORPHONE 1 MG INJ IV ×3 (08:29→23:38)
[2021-02-18] MEDS: DOCUSATE 100 MG CAPSULE PO ×2 (08:35→20:39)
[2021-02-18] MEDS: METOPROLOL ER 50 MG TABLET 100 MG PO (08:36)
[2021-02-18] MEDS: FUROSEMIDE 40 MG TABLET PO (08:36)
[2021-02-18] MEDS: dilTIAZem CD 180 MG CAP PO (08:36)
[2021-02-18] MEDS: FERROUS SULFATE 325 MG TABLET PO (08:40)
[2021-02-18] MEDS: lisinopriL 5 MG TABLET PO (08:40)
[2021-02-18] MEDS: POTASSIUM CHLORIDE 20 MEQ TAB PO (08:40)
[2021-02-18] MEDS: SODIUM CHLORIDE 0.9% FLUSH 10 ML IV ×4 (08:41→23:38)
[2021-02-18] MEDS: OXYCODONE ER 10 MG TAB PO ×2 (09:00→20:39)
--- NOTE | 2021-02-18 10:51 | PT-IP ANOTE ---
Attempted to see pt at 9:15 AM and again at 10:51 AM, pt refused both times due to pain and requested after lunch treatment.
[2021-02-18] MEDS: HYDROMORPHONE 4 MG TABLET PO ×2 (11:01→21:52)
--- NOTE | 2021-02-18 14:30 | PT.IPTN ---
Current Diagnoses Spondylolisthesis, lumbar region (02/14/21) Spinal stenosis, lumbar region with neurogenic claudication (02/14/21) Surgery Performed Operation Date: 02/14/21 12:15 Actual Procedures p L2-3, L3-4 TLIF with posterior instrumentation - Gilberto Savage MD Physical Therapy Treatment Note M2 PT-IP Current Condition Start: 02/15/21 13:54 Freq: NEEDED Status: Active Protocol: Document 02/15/21 10:40 AB (Rec: 02/15/21 14:08 AB [id number]) Physical Therapy Current Condition Current Condition Evaluation Date 02/15/21 Treatment Diagnosis s/p L2-3, L3-4 TLIF; difficulty in walking Onset Date 02/14/21 M3 PT-IP Subjective Start: 02/15/21 13:54 Freq: NEEDED Status: Active Protocol: Document 02/18/21 14:16 KS (Rec: 02/18/21 15:27 KS [id number]) Subjective Physical Therapy Visit Type Type Treatment Note Visit Start Time 14:16 Visit Stop Time 14:30 Total Visit Minutes 14 Number of CARBON PAPER COATING MACHINE SETTER Visits 3 Physical Therapy Visit Comments Patient Comments Pt is agreeable to work with PT, but reporting 10/10 pain. Patient Goals Pt is considering SNF rehab but is worried about her 16 yo cat at home. Therapy Pain Assessment Pain When Pain Assessed At Rest Pain Present Pain Present Pain Reported M4 PT-IP Mobility and Gait Start: 02/15/21 13:54 Freq: NEEDED Status: Active Protocol: Document 02/18/21 14:16 KS (Rec: 02/18/21 15:27 KS [id number]) PT-Bed Mobility Assessment Supine to Sit Supine to Sit Moderate Assistance,1 Person Assistance Scooting Scooting to Edge of Bed Moderate Assistance PT-Transfer Assessment Sit to and From Stand Sit to and from Stand Moderate Assistance,1 Person Assistance,Use of Upper Extremities Equipment Transfer Assistive Device Gait Belt,Front Wheeled Walker Orthotic/Prosthetic Devices or Brace: No Transfers Transfer Destination Bed,Bedside Commode Transfer Technique Pt ambulated w/ FWW Transfer Ability Level of Assist Moderate Assistance,1 Person Assistance,Use of Upper Extremities Comments Mobility Comments Pt sidelying in bed upon arrival from therapy and still reporting 10/10 pain. Mod A for sidelying<>sit and scooting EOB. Pt with writhing movement in RLE due to sharp pain. She then sit<>Stand and transferred to [facility] Mod A X1-2 w/ OT for additional assistance. Following commde, she ambulated ~5 ft towards HOB w/ FWW Mod A and cues. Pt left sitting EOB w/ OT in room . Gait Assessment Gait Gait Assistance Required: Moderate Assistance,1 Person Assist Distance (Feet) 7 Able to Maintain Weight Bearing Status Yes During Gait Assistive Devices Assistive Device Gait Belt,Front Wheeled Walker Orthotic/Prosthetic Devices or Brace: No Gait Deviations General Gait Pattern Antalgic,Decreased Stride Length,Decreased Feet Clearance,Flexed Trunk,Step-to Gait Factors Limiting Gait Function Factors Limiting Gait Function Decreased Activity Tolerance, Decreased Strength,Difficulty Following Directions,Limited Range of Motion,Pain,Poor Balance,Poor Safety Awareness Comments Gait Comments Pt ambulated ~7 ft total w/ FWW Mod A. Unable to tolerate further ambulaton due to pain and weakness. PT-Balance Assessment Sitting Balance and Reactions Static Sitting Balance Ability Fair Dynamic Sitting Balance Ability Fair Standing Balance and Reactions Static Standing Balance Ability Poor Dynamic Standing Balance Ability Poor Device Used FWW M5 PT-IP Objective Assessments Start: 02/15/21 13:54 Freq: NEEDED Status: Active Protocol: Document 02/15/21 10:40 AB (Rec: 02/15/21 14:08 AB [id number]) Orientation Orientation/Cognition Level of Alertness Confusional State Orientation Name Safety Awareness Decreased Safety Awareness Memory Description Short Term Impaired Gross Range of Motion Lower Extremity ROM Assessment Within Functional Limits Strength Lower Extremity Strength Assessment Bilaterally Impaired Hip 3+/5 Knee L: 4-/5 R: 3+/5 Sensation Assessment Sensation Gross Sensation WNL Muscle Tone Muscle Tone WNL Yes M6 PT-IP Treatment Start: 02/15/21 13:54 Freq: NEEDED Status: Active Protocol: Document 02/18/21 14:16 KS (Rec: 02/18/21 15:27 KS [id number]) Physical Therapy Treatment Education Education Provided Precautions,Safety M7 PT-IP Assessment and Plan Start: 02/15/21 13:54 Freq: NEEDED Status: Active Protocol: Document 02/18/21 14:16 KS (Rec: 02/18/21 15:27 KS [id number]) PT Summary Assessment and Plan Potential Rehabilitation Potential Fair Summary Impairments Pain,ROM,Strength,Balance, Coordination,Sensation,Tone, Cognition,Bed Mobility, Transfers,Gait,Activity Tolerance Progress Towards Goals Slow Progress due to Pain,Slow Progress due to Activity Tolerance Assessment Summary Pt showed some improvements w/ tolerance for activity today and was able to ambulate short distance to and from bed to bedside commode. She continues to report 10/10 pain in back and RLE. Mod A for bed mobility, transfers, and short bout of ambulation w/ FWW. Pt will require SNF to improve strength and functional mobility. Goals Bed Mobility Goal Standby Assistance Transfer Goal Standby Assistance,Front Wheeled Walker Gait Goal Standby Assistance,Front Wheel Walker Gait Distance 100 Other Goals improve ambulation using 4WW 150 ft SBA up/down 2 steps 2 posts/ supports/ STEAM SETTER min A Days to Meet Goals 10 Frequency of Treatment Frequency Of Treatment Twice a Day Treatment Plan Physical Therapy Treatment Plan Bed Mobility Training,Transfer Training,Gait Training, Therapeutic Exercise,Balance Retraining,Post Op Education, Discharge Planning,Hot or Cold Pack,Neuromuscular Re-ed, Coordination Retraining,Manual Therapy Precautions Lumbar Precautions Log Roll,No Twisting,Limit Bending,Lifting Restriction of 10 lbs,Gait Belt above Incisional Area Recommendations To Nursing Amount of Assist Needed 2 Person Assist Discharge Recommendations PT Discharge Recommendations SNF Rehab Equipment Needed for Home Before FWW if not safe with 4WW Discharge Transportation Needs at Discharge Wheelchair/Cabulance
--- NOTE | 2021-02-18 14:44 | OT.IP.TRT ---
Current Diagnoses Spondylolisthesis, lumbar region (02/14/21) Spinal stenosis, lumbar region with neurogenic claudication (02/14/21) Surgery Performed Operation Date: 02/14/21 12:15 Actual Procedures p L2-3, L3-4 TLIF with posterior instrumentation - Gilberto Savage MD Occupational Therapy Treatment Note M2 OT-IP Current Condition Start: 02/15/21 14:36 Freq: Status: Active Protocol: Document 02/15/21 14:37 CGR (Rec: 02/15/21 14:51 CGR [id number]) Occupational Therapy Current Condition Current Condition Evaluation Date 02/15/21 Treatment Diagnosis L2-4 TLIF Diagnosis Onset Date 02/14/21 Post Operative Precautions Lumbar Precautions Log Roll,No Twisting,Limit Bending,Lifting Restriction of 10 lbs,Gait Belt above Incisional Area M3 OT- IP Subjective and Pain Start: 02/15/21 14:36 Freq: Status: Active Protocol: Document 02/18/21 14:16 [facility] (Rec: 02/18/21 16:59 [facility] [id number]) OT- Subjective Occupational Therapy Visit Type Type Treatment Note Visit Start Time 14:16 Visit Stop Time 14:44 Total Visit Minutes 28 Occupational Therapy Visit Comments Patient Comments Pt agreed to get up for OT/EXTENSION AGENT , pt seen together due to decreased activity tolerance and pain level. Patient/Caregiver Goals TO go home. OT Pain Assessment Pain When Pain Assessed During Mobility Pain Present Pain Present Pain Reported Location Lower Back Intensity 10 Scale Used Numeric (0 - 10) M4 OT- IP ADL's Start: 02/15/21 14:36 Freq: Status: Active Protocol: Document 02/18/21 14:16 [facility] (Rec: 02/18/21 16:59 [facility] [id number]) OT ADL-Dressing General Eval Lower Body Dressing Ability Moderate Assistance Areas Needing Assistance Socks Comments OT Dressing Comments Able to show and go through Lb dressing equipment with pt. Pt still needing assist as having lots of pain and not able to sit upright long. Pt will benefit from more practice. OT ADL-Toileting Comments OT Toileting Comments Pt needing MODA X 1 with FWw to transfer to the commode but did not have to go. Pt will require assist for clothing and hygiene needs. OT ADL-Bathing Comments OT Bathing Comments not performed M5 OT- IP IADL's Start: 02/15/21 14:36 Freq: Status: Active Protocol: Document 02/15/21 14:37 CGR (Rec: 02/15/21 14:51 CGR [id number]) OT-Instrumental Activities of Daily Living Deficits IADL Deficits Identified Deficits Home Safety Awareness Awareness of Need for Assistance at Home Decreased Awareness Ability to Problem Solve Emergency Able to Problem Solve Situations Medication Management Medication Management No Deficits Identified Money Management Money Management No Deficits Identified Meal Preparation Meal Preparation Comments Concerns for pt's ability to perform Substation Mechanic Substation Mechanic Comments Concerns for pt's ability to perform Driving Driving Comments Concerns for pt's ability to perform M6 OT- IP Functional Cognition Start: 02/15/21 14:36 Freq: Status: Active Protocol: Document 02/18/21 14:16 [facility] (Rec: 02/18/21 16:59 [facility] [id number]) Cognitive Factors Limiting Selfcare Function Cognitive Comments Cognitive Assessment Comments Pt able to follow commands but highly distracted due to her pain. M7 OT- IP Mobility and Balance Start: 02/15/21 14:36 Freq: Status: Active Protocol: Document 02/18/21 14:16 [facility] (Rec: 02/18/21 16:59 [facility] [id number]) OT-Transfer Assessment Sit to and From Stand Sit to and from Stand Moderate Assistance,Total Assistance Transfers Transfer Ability Moderate Assistance,1 Person Assistance Technique Transfer Destination Bed,Chair Transfer Technique Stand Step Pivot Devices Transfer Assistive Devices Gait Belt,Front Wheeled Walker Comments Mobility Comments Pt very unsteady on her LLE and at times having difficulty to control it due to her pain . OT- Balance Assessment Sitting Balance and Reactions Static Sitting Balance Ability Fair Dynamic Sitting Balance Ability Fair Standing Balance and Reactions Static Standing Balance Ability Poor Dynamic Standing Balance Ability Poor M8 OT- IP Objective Assessments Start: 02/15/21 14:36 Freq: Status: Active Protocol: Document 02/15/21 14:37 CGR (Rec: 02/15/21 14:51 CGR [id number]) OT Gross Range of Motion Upper Extremity Range of Motion Assessment Within Functional Limits OT Strength Upper Extremity Strength Assessment Within Functional Limits Comments Strength Comments grossly 4-/5 OT- Coordination Assessment Upper Extremity Finger to Nose Test Within Functional Limits Finger Tapping Test Within Functional Limits OT-Muscle Tone Assessment Muscle Tone WNL Yes OT Sensation Assessment Edema Edema Absent M9 OT- IP Assessment and Plan Start: 02/15/21 14:36 Freq: Status: Active Protocol: Document 02/18/21 14:16 [facility] (Rec: 02/18/21 16:59 [facility] [id number]) OT Summary Assessment and Plan Potential Rehabilitation Potential Good Analytic Complexity at Evaluation Moderate Summary OT Impairments Pain,Balance,Functional Mobility,Grooming,Dressing, Toileting,Bathing,Toilet Transfers,Shower Transfers, Activity Tolerance Progress Towards Goals Slow Progress due to Pain Assessment Summary Pt still needing extensive assist for ADL and mobility needs and would benefit from skilled rehab prior to going home. Pt is motivated to get better. Pt mainly just doing transfer at this time. Goals Grooming Goal Independent Dressing Goal Independent Toileting Goal Independent Bathing Goal Independent Toilet Transfer Goal Independent Shower Transfer Goal Independent Days to Meet Goals 15 Frequency of Treatment Frequency Of Treatment Once a Day Treatment Plan OT Treatment Plan ADL Training,Functional Mobility,Patient/Family Education,Discharge Planning Other Treatment Recommendations and Next ADLs standing, toileting, LB Treatment Focus dressing. Discharge Recommendations OT Discharge Recommendations SNF Rehab Transportation Needs at Discharge Wheelchair/Cabulance
[2021-02-18 15:56] LABS: Hematocrit 22.4 % (36-46); Hemoglobin 7.4 g/dL (12.0-16.0)
[2021-02-18] MEDS: ATORVASTATIN 20 MG TABLET PO (20:39)
[2021-02-18] MEDS: SENNOSIDES 8.6 MG TABLET 17.2 MG PO (20:39)
[2021-02-18] MEDS: diazePAM 10 MG/2 ML SYRINGE 5 MG IV (22:00)
[2021-02-19] VITALS (10 sets, daily range): BP systolic 107–135; BP diastolic 55–66; PULSE 62–78; RESP 16–20; TEMP 36.2–37; O2SAT 94–98
--- NOTE | 2021-02-19 01:14 | PC.NURSE ---
Patient is alert and oriented. Breath sounds CTA with sat of 98% but is still on oxygen at 2L/min per NC as reportedly desats; will decrease to 1L/min and monitor while trying to titrate off O2. HRR. Denies nausea. BT present and had BM yesterday. Denies dysuria, frequency or urgency with urination; getting up to BSC with walker and 1 assist. Is being assisted to reposition as requested. Dressing to back is intact with small area of serous drainage noted. Complains of 8-10 pain starting in lower back radiating into left buttock then into anterior left thigh. Has been medicated with po Dilaudid at 2152, Valium at 2200 and IV Dilaudid at 2338 in addition to her scheduled oxycontin. Patient does fall asleep after being medicated but pain relief doesn't seem to last for long. Ice pack has been applied to back intermittently which has helped minimally. Is wearing bilateral calf SCD's; order is for foot SCD's but patient not wanting to change to foot SCD's. Denies tingling/numbness. Fall risk score is high and bed alarm is activated.
[2021-02-19] MEDS: HYDROMORPHONE 2 MG TABLET PO (03:09)
[2021-02-19] MEDS: ACETAMINOPHEN 325 MG TABLET 650 MG PO (03:09)
[2021-02-19] MEDS: HYDROMORPHONE 1 MG INJ IV ×5 (06:56→17:56)
--- NOTE | 2021-02-19 08:20 | P.PN_ITS ---
Subjective Subjective Date Patient Seen: 02/19/21 Time Patient Seen: 08:20 Interval history: Pain is moderate however better controlled compared to yesterday. No nausea / vomiting. No shortness breath or chest pain. Denies fever or chills. Exam Vital Signs (past 8 hours): - 02/19/21 01:20 02/19/21 06:40 Temperature 97.3 F L 97.1 F L Pulse Rate 68 78 Respiratory Rate 19 20 Blood Pressure 111/61 135/58 L Pulse Oximetry 98 98 Oxygen Delivery Method Nasal Cannula Oxygen Flow Rate 1 Narrative Exam Narrative: 75-year-old female resting comfortably in bed in no apparent distress. Lumbar dressing is Clean, dry, intact. Motor functions intact bilateral lower extremities. Sensation grossly intact to light touch bilateral lower extremities. Objective Labs Result Diagrams: 02/18/21 15:50 Labs: Laboratory Results - last 24 hr 02/18/21 15:50 Hgb 7.4 L Hct 22.4 L PFSH Medical History Acid reflux Acne (~1951) Anemia Anxiety Atrial fibrillation (~2018) Cataracts, bilateral (~2018) Chicken pox Chronic low back pain (~2014) Chronic pain syndrome Current every day smoker Dyslipidemia History of Mohs micrographic surgery for skin cancer HLD (hyperlipidemia) Hypertension residential current use of anticoagulant therapy Measles SCC (squamous cell carcinoma) Syncope (~2018) Surgical History Anesthesia History of bilateral tubal ligation History of carpal tunnel surgery of right wrist History of tonsillectomy (~1962) Hx of bilateral cataract extraction Family History Father History of heart disease Mother History of heart disease Hypertension Social History household members: family Smoking Status: Current every day smoker Tobacco: How many years used: 57 quit status: not considering quitting (Too stressed) second hand exposure: Yes alcohol intake: current substance use type: marijuana (Pain relief ) Assessment & Plan Post-op Postoperative Procedures: Procedures Operation Date: 02/14/21 12:15 Actual Procedure Side Surgeon p L2-3, L3-4 TLIF with posterior instrumentation Gilberto Savage MD Postoperative day: 5 Postoperative status: marginal pain control and anemia Postoperative status narrative: Pain control improving. Postop anemia hemoglobin 7.4 hematocrit 22.4 Postoperative plan narrative: Ordered 1 unit packed red blood cells now Repeat H&H tomorrow morning Mobilize with physical therapy, limit bending, twisting, lifting Multimodal pain management Started one 81 mg tablet aspirin, consult Dr. Savage about restarting apixaban Disposition pending repeat H&H tomorrow, if it stabilizes or improves will discharge to senior care facility Quality VTE Deep Vein Thrombosis/Pulmonary Embolism Present on Admission: No
[2021-02-19] MEDS: POTASSIUM CHLORIDE 20 MEQ TAB PO (08:50)
[2021-02-19] MEDS: lisinopriL 5 MG TABLET PO (08:50)
[2021-02-19] MEDS: FUROSEMIDE 40 MG TABLET PO (08:50)
[2021-02-19] MEDS: HYDROMORPHONE 4 MG TABLET PO ×4 (08:50→23:43)
[2021-02-19] MEDS: METOPROLOL ER 50 MG TABLET 100 MG PO (08:50)
[2021-02-19] MEDS: dilTIAZem CD 180 MG CAP PO (08:50)
[2021-02-19] MEDS: FERROUS SULFATE 325 MG TABLET PO (08:51)
[2021-02-19] MEDS: OXYCODONE ER 10 MG TAB PO ×2 (08:51→21:03)
[2021-02-19] MEDS: MAGNESIUM HYDROXIDE 30 ML UDC PO (08:51)
[2021-02-19] MEDS: ASPIRIN EC 81 MG TABLET PO (08:51)
[2021-02-19] MEDS: DOCUSATE 100 MG CAPSULE PO ×2 (08:51→21:03)
[2021-02-19] MEDS: SODIUM CHLORIDE 0.9% FLUSH 10 ML IV ×3 (08:52→21:04)
--- NOTE | 2021-02-19 08:55 | OT.IPNOTE ---
Pt to be receiving blood today. Pt is lots on pain and nursing just about to give her more pain medications. Per nursing best to check on the pt later
--- NOTE | 2021-02-19 11:00 | DIET.PN1 ---
Dietary Progress Note Assessment: 75y F c chronic pain on d5 s/p TLIF with ongoing pain management issues screened by RD for d5 LOS. Pts POs 25-50% for most of this hospital stay. Pt drank an ONS Ensure last night. Ht: 157.48 cm Wt: 64.5 kg BMI: 25.6 Last BM: 02/18/21 (02/18/21 08:00) MNA: 14 Kwesi Score: 18 Diet: 02/14/21 Dinner General (Regular) Diet Diet Modifications: Nutrition Percent Meal Consumed 100% 02/19/21 09:00 Percent Meal Consumed had an ensure 02/18/21 18:55 Percent Meal Consumed 50% 02/18/21 10:47 Percent Meal Consumed 25% 02/17/21 18:47 Labs: Hgb 7.4 g/dL (12.0-16.0) L 02/18/21 15:50 Hct 22.4 % (36-46) L 02/18/21 15:50 Nutrition Diagnosis: inadequate protein calorie intake postoperatively r/t postop pain management aeb pts POs 25-50% x4d. Interventions: 1. Sending ONS Ensure Regular bid to support post-op protein needs for healing. EER: 70g PRO (1.1g/kg per elder, postop) Monitoring/Evaluations: ONS tolerance, POs Electronically Signed by: Lana Rudd 02/19/21 11:00 Clinical Diet[address] [address]
--- NOTE | 2021-02-19 11:20 | PT-IP ANOTE ---
AIRBRUSH ARTIST TECHNICAL/ SPTA discussion with LOG SNAKER and nurse prior to room entry, recommending PT hold this am due to low Hgb7.4/Hct 22.4, currently just assisted back to bed with reports of demonstrating shooting shocks of pain with mobility and currently receiving ordered blood transfusion. AIRBRUSH ARTIST TECHNICAL/SPTA entered room, pt reported and agreed not able to work with therapy right now due to pain and blood transfusion, agreeable for AIRBRUSH ARTIST TECHNICAL to return in afternoon to assess progress in mobility if safe and cleared by physican/ nursing. AIRBRUSH ARTIST TECHNICAL/ SPTA did not see pt,will return in afternoon.
--- NOTE | 2021-02-19 11:28 | OT.IPNOTE ---
HOLD Ot today as pt getting blood. Check on the pt tomorrow for OT.
--- NOTE | 2021-02-19 13:24 | PC.NURSE ---
Day shift: Pt's IV failed when blood transfusing. Approx 10mls of blood leaked. IV site changed and Pt tolerated well.
--- NOTE | 2021-02-19 14:12 | PC.NURSE ---
Day shift: Dr Savage came to see Pt today at approx 1400. Dr Savage is going to increase Pt's oxycodone but not start Pt on steroids at his time.
--- NOTE | 2021-02-19 16:28 | PT.IPTN ---
Current Diagnoses Spondylolisthesis, lumbar region (02/14/21) Spinal stenosis, lumbar region with neurogenic claudication (02/14/21) Surgery Performed Operation Date: 02/14/21 12:15 Actual Procedures p L2-3, L3-4 TLIF with posterior instrumentation - Gilberto Savage MD Physical Therapy Treatment Note M2 PT-IP Current Condition Start: 02/15/21 13:54 Freq: NEEDED Status: Active Protocol: Document 02/19/21 15:59 SP (Rec: 02/19/21 17:53 SP [id number]) Physical Therapy Current Condition Current Condition Evaluation Date 02/15/21 Treatment Diagnosis s/p L2-3, L3-4 TLIF; difficulty in walking Onset Date 02/14/21 M3 PT-IP Subjective Start: 02/15/21 13:54 Freq: NEEDED Status: Active Protocol: Document 02/19/21 15:59 SP (Rec: 02/19/21 17:53 SP [id number]) Subjective Physical Therapy Visit Type Type Treatment Note Visit Start Time 15:59 Visit Stop Time 16:28 Total Visit Minutes 29 Notes SPTA provide 2nd person assist throughout tx while being provided direct instruction under SOLUTIONS ANALYST Erin. Number of SOLUTIONS ANALYST Visits 4 Physical Therapy Visit Comments Patient Comments Pt is agreeable to work with PT, but reporting moderate pain. Patient Goals Pt is considering SNF rehab but is worried about her 16 yo cat at home. Therapy Pain Assessment Pain When Pain Assessed During Mobility Pain Present Pain Present Pain Reported Location Lower Back Scale Used moderated with mobility, not quantified Pain Behaviors Calling Out,Facial Grimacing, Moaning,Restlessness,Wincing Pain Management Techniques Apply Cold,Distraction, Modification of Treatment,Re- positioning,Timing of Activity with Medications M4 PT-IP Mobility and Gait Start: 02/15/21 13:54 Freq: NEEDED Status: Active Protocol: Document 02/19/21 15:59 SP (Rec: 02/19/21 17:53 SP [id number]) PT-Bed Mobility Assessment Rolling Type of Rolling Log Rolling,Roll to Left Level of Assist Minimal Assistance,1 Person Assistance Supine to Sit Supine to Sit Minimal Assistance,Moderate Assistance,1 Person Assistance ,Bedrails Sit to Supine Sit to Supine Moderate Assistance,2 Person Assistance,Bedrails Scooting Scooting to Edge of Bed Minimal Assistance PT-Transfer Assessment Sit to and From Stand Sit to and from Stand Moderate Assistance,2 Person Assistance,Use of Upper Extremities Equipment Transfer Assistive Device Gait Belt,Front Wheeled Walker Orthotic/Prosthetic Devices or Brace: No Transfers Transfer Destination Bed,Bedside Commode Transfer Technique Stand Step Pivot Transfer Ability Level of Assist Moderate Assistance,2 Person Assistance,Use of Upper Extremities Comments Mobility Comments Pt completed LR R using bed long bed rail Min A with cues for slow mobility knees bent. L SL>sit w/ bed rail Min- Mod A, scoot Min A for trunk and LE advancement. Pt impulsive reaching for BSC and pushing from bed UE/ LE restless. Cued stationary sit for don GB and relax LE on floor and hands on bed. Completed squat pivot transfer bed>BSC Mod A x2 person with cues for upright posture alignment and LE positioning. Sat on BSC able to void, LE/ UE restless, cues for relaxation shld, rest LE on floor, gentle TA facilittaion with brief carryover helpful. Sit>stand Mod A x2 with cues hand push from BSC arms, SOLUTIONS ANALYST able to assist pericare in stand, SPT back to bed with support for FWW Mod A x2 support required and impulsivity w/ repositioning toward HOB, cues for reaching back. Stand>sit Min A, sit>supine Mod A x2 for trunk and BLE into bed support. Lateral scoot back to center inbed Min A w/ BUE on bed rail and BLE pressure in bed self assist. Provided pillows between knees, post back w/ CP and between BUE front,under head for comfort. Pt had call light, bed alarmed and all needs in reach before left. Updated communitcation board. Gait Assessment Comments Gait Comments Squat pivot and SPT using FWW transfers Mod A x2 only due to pain and limited mobility tolerance. Stair Climbing Assessment Comments Stair Climbing Comments unableto assess due to pain and unable to stand for long period of time. Will need to assess 2 steps ) HR but has 2 posts to use prior to safe DC home when able. PT-Balance Assessment Sitting Balance and Reactions Static Sitting Balance Ability Fair Dynamic Sitting Balance Ability Poor Standing Balance and Reactions Static Standing Balance Ability Poor Dynamic Standing Balance Ability Poor Device Used FWW M5 PT-IP Objective Assessments Start: 02/15/21 13:54 Freq: NEEDED Status: Active Protocol: Document 02/15/21 10:40 AB (Rec: 02/15/21 14:08 AB [id number]) Orientation Orientation/Cognition Level of Alertness Confusional State Orientation Name Safety Awareness Decreased Safety Awareness Memory Description Short Term Impaired Gross Range of Motion Lower Extremity ROM Assessment Within Functional Limits Strength Lower Extremity Strength Assessment Bilaterally Impaired Hip 3+/5 Knee L: 4-/5 R: 3+/5 Sensation Assessment Sensation Gross Sensation WNL Muscle Tone Muscle Tone WNL Yes M6 PT-IP Treatment Start: 02/15/21 13:54 Freq: NEEDED Status: Active Protocol: Document 02/19/21 15:59 SP (Rec: 02/19/21 17:53 SP [id number]) Physical Therapy Treatment Other Treatments Other Treatment Performed Education on breath and relaxation techniques to decrease muscle spasming and pain across back, with restless BUE/ LE. M7 PT-IP Assessment and Plan Start: 02/15/21 13:54 Freq: NEEDED Status: Active Protocol: Document 02/19/21 15:59 SP (Rec: 02/19/21 17:53 SP [id number]) PT Summary Assessment and Plan Potential Rehabilitation Potential Fair Summary Impairments Pain,ROM,Strength,Balance, Coordination,Sensation,Tone, Cognition,Bed Mobility, Transfers,Gait,Activity Tolerance Progress Towards Goals Slow Progress due to Pain,Slow Progress due to Activity Tolerance Assessment Summary Pt improvements with tolerance activitytoday, only SPT this pm tx, education for relaxation techniques. Mod A x2 for all mobility using FWW SPT or squat pivot transfers. Unable to tolerate gait at this time. Pt would benefit from continued acute skilled rehab for progression in strength, relaxation and functional mobility independence. will continue to assess progress. Goals Bed Mobility Goal Standby Assistance Transfer Goal Standby Assistance,Front Wheeled Walker Gait Goal Standby Assistance,Front Wheel Walker Gait Distance 100 Other Goals improve ambulation using 4WW 150 ft SBA up/down 2 steps 2 posts/ supports/ INSURANCE COUNSELOR min A Days to Meet Goals 10 Frequency of Treatment Frequency Of Treatment Twice a Day Treatment Plan Physical Therapy Treatment Plan Bed Mobility Training,Transfer Training,Gait Training, Therapeutic Exercise,Balance Retraining,Post Op Education, Discharge Planning,Hot or Cold Pack,Neuromuscular Re-ed, Coordination Retraining,Manual Therapy Other Recommendations and Next Treatment bed mob, transfers, review Focus precautions, gait if able tolerate Precautions Lumbar Precautions Log Roll,No Twisting,Limit Bending,Lifting Restriction of 10 lbs,Gait Belt above Incisional Area Recommendations To Nursing Amount of Assist Needed 2 Person Assist Discharge Recommendations PT Discharge Recommendations SNF Rehab Equipment Needed for Home Before FWW if not safe with 4WW Discharge Transportation Needs at Discharge Wheelchair/Cabulance
[2021-02-19] MEDS: ATORVASTATIN 20 MG TABLET PO (21:03)
[2021-02-19] MEDS: SENNOSIDES 8.6 MG TABLET 17.2 MG PO (21:03)
--- NOTE | 2021-02-20 00:08 | PC.NURSE ---
Patient is alert and oriented. Breath sounds CTA with RA sat of 94%. HRR. Denied nausea. BT present and has been having bowel movements. Denies dysuria, frequency or urgency with urination. Is able to turn herself in bed but requests assistance to place pillows. Up to BSC with walker and 1 assist; needs help to get legs into bed. Dressing to back is CDI. Continuing to have pain starting in low back radiating down into left buttock and to anterior left leg. Whenever asked patient states pain is 10/10 but will be smiling and laughing as she is talking about her pain. Was medicated with scheduled oxycodone at 2102 and slept until short time ago and so medicated again with po Dilaudid. Falls asleep between pain meds and FLACC is not consistent with stated severity. Is again wearing bilateral calf SCD's and does not want to switch out to foot SCD's. Fall risk score is high and bed alarm is activated.
[2021-02-20 01:23] VITALS: BP 139/72; PULSE 100; RESP 21; TEMP 36.4; O2SAT 97
[2021-02-20] MEDS: HYDROMORPHONE 4 MG TABLET PO ×3 (03:14→11:18)
[2021-02-20] MEDS: OXYCODONE ER 10 MG TAB PO ×2 (06:24→14:21)
[2021-02-20] MEDS: FERROUS SULFATE 325 MG TABLET PO (08:01)
[2021-02-20] MEDS: DOCUSATE 100 MG CAPSULE PO (08:01)
[2021-02-20] MEDS: FUROSEMIDE 40 MG TABLET PO (08:01)
[2021-02-20] MEDS: POTASSIUM CHLORIDE 20 MEQ TAB PO (08:01)
[2021-02-20] MEDS: ASPIRIN EC 81 MG TABLET PO (08:01)
[2021-02-20] MEDS: lisinopriL 5 MG TABLET PO (08:01)
[2021-02-20] MEDS: METOPROLOL ER 50 MG TABLET 100 MG PO (08:01)
[2021-02-20] MEDS: dilTIAZem CD 180 MG CAP PO (08:01)
[2021-02-20] MEDS: SODIUM CHLORIDE 0.9% FLUSH 10 ML IV (08:02)
[2021-02-20 08:05] VITALS: BP 134/85; PULSE 95; RESP 20; TEMP 36.6; O2SAT 98
[2021-02-20 08:11] LABS: Hematocrit 27.7 % (36-46)
[2021-02-20] MEDS: CYCLOBENZAPRINE 10 MG TABLET PO (08:29)
[2021-02-20 09:23] VITALS: PULSE 79
--- NOTE | 2021-02-20 10:03 | PT.IPTN ---
Current Diagnoses Spondylolisthesis, lumbar region (02/14/21) Spinal stenosis, lumbar region with neurogenic claudication (02/14/21) Surgery Performed Operation Date: 02/14/21 12:15 Actual Procedures p L2-3, L3-4 TLIF with posterior instrumentation - Gilberto Savage MD Physical Therapy Treatment Note M2 PT-IP Current Condition Start: 02/15/21 13:54 Freq: NEEDED Status: Active Protocol: Document 02/19/21 15:59 SP (Rec: 02/19/21 17:53 SP [id number]) Physical Therapy Current Condition Current Condition Evaluation Date 02/15/21 Treatment Diagnosis s/p L2-3, L3-4 TLIF; difficulty in walking Onset Date 02/14/21 M3 PT-IP Subjective Start: 02/15/21 13:54 Freq: NEEDED Status: Active Protocol: Document 02/20/21 09:40 KS (Rec: 02/20/21 12:05 KS [id number]) Subjective Physical Therapy Visit Type Type Treatment Note Visit Start Time 09:40 Visit Stop Time 10:03 Total Visit Minutes 23 Number of PHILOSOPHY AND RELIGION INSTRUCTOR Visits 5 Physical Therapy Visit Comments Patient Comments Pt is agreeable to work with PT, but reporting high pain. Patient Goals Pt is considering SNF rehab but is worried about her 16 yo cat at home. M4 PT-IP Mobility and Gait Start: 02/15/21 13:54 Freq: NEEDED Status: Active Protocol: Document 02/20/21 09:40 KS (Rec: 02/20/21 12:05 KS [id number]) PT-Bed Mobility Assessment Sit to Supine Sit to Supine Moderate Assistance,1 Person Assistance,Bedrails PT-Transfer Assessment Sit to and From Stand Sit to and from Stand Moderate Assistance,1 Person Assistance,Use of Upper Extremities Equipment Transfer Assistive Device Gait Belt,Front Wheeled Walker Orthotic/Prosthetic Devices or Brace: No Transfers Transfer Destination Bed Transfer Technique Pt ambulated w/ FWW Transfer Ability Level of Assist Moderate Assistance,1 Person Assistance,Use of Upper Extremities Comments Mobility Comments Pt in chair upon arrival from therapy and agreed to ambulate to bed. Pt CGA for scooting EOC, Mod A and cues for sit<> stand w/ FWW. Pt still crying out in pain during mobility. Able to maintain standin ~1 min then stand<>sit Mod A for slow descent. She sit<>stand again Mod A and ambulated ~15 ft around to other side of bed w/ FWW Min A. Mod A for slow descent and sit<>sidelying in bed. Pt left in sidelying w/ pillow between legs and behind back w/ all needs in reach and alarm on. Gait Assessment Gait Gait Assistance Required: Minimum Assistance Distance (Feet) 15 Able to Maintain Weight Bearing Status Yes During Gait Assistive Devices Assistive Device Gait Belt,Front Wheeled Walker Orthotic/Prosthetic Devices or Brace: No Gait Deviations General Gait Pattern Antalgic,Decreased Stride Length,Decreased Feet Clearance,Flexed Trunk,Step-to Gait Factors Limiting Gait Function Factors Limiting Gait Function Decreased Activity Tolerance, Decreased Strength,Difficulty Following Directions,Limited Range of Motion,Pain,Poor Balance,Poor Safety Awareness Comments Gait Comments Pt able to tolerate ~15 ft ambulation w/ FWW Min A. Decreased stride and foot clearance due to pain and weakness. Unable to tolerate further ambulation this AM. Stair Climbing Assessment Comments Stair Climbing Comments unableto assess due to pain and unable to stand for long period of time. Will need to assess 2 steps ) HR but has 2 posts to use prior to safe DC home when able. PT-Balance Assessment Sitting Balance and Reactions Static Sitting Balance Ability Fair Dynamic Sitting Balance Ability Poor Standing Balance and Reactions Static Standing Balance Ability Poor Dynamic Standing Balance Ability Poor Device Used FWW M5 PT-IP Objective Assessments Start: 02/15/21 13:54 Freq: NEEDED Status: Active Protocol: Document 02/15/21 10:40 AB (Rec: 02/15/21 14:08 AB [id number]) Orientation Orientation/Cognition Level of Alertness Confusional State Orientation Name Safety Awareness Decreased Safety Awareness Memory Description Short Term Impaired Gross Range of Motion Lower Extremity ROM Assessment Within Functional Limits Strength Lower Extremity Strength Assessment Bilaterally Impaired Hip 3+/5 Knee L: 4-/5 R: 3+/5 Sensation Assessment Sensation Gross Sensation WNL Muscle Tone Muscle Tone WNL Yes M6 PT-IP Treatment Start: 02/15/21 13:54 Freq: NEEDED Status: Active Protocol: Document 02/20/21 09:40 KS (Rec: 02/20/21 12:05 KS [id number]) Physical Therapy Treatment Education Education Provided Precautions,Safety Other Treatments Other Treatment Performed Continued education on breath and relaxation techniques to decrease muscle spasming and pain across back, with restless BUE/ LE. Reveiwed precautions, able to recall 2/ 3 (no twisting). M7 PT-IP Assessment and Plan Start: 02/15/21 13:54 Freq: NEEDED Status: Active Protocol: Document 02/20/21 09:40 KS (Rec: 02/20/21 12:05 KS [id number]) PT Summary Assessment and Plan Potential Rehabilitation Potential Fair Summary Impairments Pain,ROM,Strength,Balance, Coordination,Sensation,Tone, Cognition,Bed Mobility, Transfers,Gait,Activity Tolerance Progress Towards Goals Slow Progress due to Pain,Slow Progress due to Activity Tolerance Assessment Summary Pt showed some improvement w/ mobility and tolerance for activity. She continues to report high amount of pain and requires cues to recall spinal precautions. Mod A for sit<>stand w/ FWW, Min A for ~ 15 ft ambulation w/ FWW, Mod A for sit<>sidelying in bed. Pt will require SNF to improve strength and fnctional mobility independence. Goals Bed Mobility Goal Standby Assistance Transfer Goal Standby Assistance,Front Wheeled Walker Gait Goal Standby Assistance,Front Wheel Walker Gait Distance 100 Other Goals improve ambulation using 4WW 150 ft SBA up/down 2 steps 2 posts/ supports/ BUILDING CUSTODIAN min A Days to Meet Goals 10 Frequency of Treatment Frequency Of Treatment Twice a Day Treatment Plan Physical Therapy Treatment Plan Bed Mobility Training,Transfer Training,Gait Training, Therapeutic Exercise,Balance Retraining,Post Op Education, Discharge Planning,Hot or Cold Pack,Neuromuscular Re-ed, Coordination Retraining,Manual Therapy Other Recommendations and Next Treatment bed mob, transfers, review Focus precautions, gait if able tolerate Precautions Lumbar Precautions Log Roll,No Twisting,Limit Bending,Lifting Restriction of 10 lbs,Gait Belt above Incisional Area Recommendations To Nursing Amount of Assist Needed 2 Person Assist Discharge Recommendations PT Discharge Recommendations SNF Rehab Equipment Needed for Home Before FWW if not safe with 4WW Discharge Transportation Needs at Discharge Wheelchair/Cabulance
[2021-02-20] MEDS: diazePAM 5 MG TABLET PO (11:19)
--- NOTE | 2021-02-20 11:44 | DI.RAD.S_ITS ---
PROCEDURE: XR LUMBAR SPINE 2-3V INDICATIONS: severe back pain s/p TLIF TECHNIQUE: 2 views of the lumbar spine were acquired. COMPARISON: [facility], , XR LUMBAR SPINE 2-3V, 02/14/2021, 14:58. FINDINGS: Bones: 5 [id number] vertebrae are present. Patient is status post posterior fusion at L2 through L4 levels. Intervertebral spacer placement at L2-3 level is seen. There is prior vertebroplasty at L3 level. Grade 1 retrolisthesis of L3 on L4 and L2 on L3 is seen. There is normal bony alignment. No acute vertebral body compression fractures. Degenerative endplate changes are noted throughout lumbar spine and lower thoracic spine. No gross hardware loosening or failure. No suspicious bony lesions. Spine. 1 anterolisthesis of T11 on T12 is seen. Soft tissues: Posterior lower back skin yumiko are noted. Overlying bowel gas pattern is normal. No suspicious soft tissue calcifications. IMPRESSION: Postop changes from fusion at L2 through L4 levels with grade 1 retrolisthesis at L2-3 and L3-4 levels. Chronic appearing compression deformity of L3 vertebral body with evidence of prior vertebroplasty. No acute compression fracture. Degenerative disc disease throughout lower thoracic and lumbar spine. Grade 1 anterolisthesis of T11 on T12. Dictated by: Sam Collins M.D. on 02/20/2021 at 13:58 Approved by: Sam Collins M.D. on 02/20/2021 at 14:00
[2021-02-20] MEDS: GABAPENTIN 300 MG CAPSULE PO (11:47)
--- NOTE | 2021-02-20 12:11 | P.DS_ITS ---
History of Present Illness History of Present Illness Date Patient Seen: 02/20/21 Time Patient Seen: 12:12 Chief complaint: Severe back pain status post TLIF Narrative: The patient is complaining of severe back pain status post TLIF. In terms of her anemia, her dizziness has improved after a unit of blood yesterday. The patient is unaware of chronic anemia, however her baseline preoperative hemoglobin was only 9.2. Her main issue is pain control. She was taking 3 tablets of [place] 10 daily for the 15 months prior to surgery, and has likely built up a tolerance. We have been working on getting her pain under better control. Discharge Providers Provider Date of admission: 02/14/21 10:42 Discharge Date: 02/20/21 Primary care physician: Kenny Roberson MD Consults: 02/14/21 11:15 Consult to Respiratory Therapy Evaluate & Treat Comment: Physician Instructions: Evaluate and treat 02/14/21 18:42 Consult to Occupational Therapy Evaluate & Treat Comment: Physician Instructions: Evaluate and treat Consult to Physical Therapy Evaluate & Treat Comment: Physician Instructions: Evaluate and Treat Discharge provider: Dina Bah PA-C Summary Hospital Course Discharge Diagnosis: 1. L2-3, L3-4 spinal stenosis with neurogenic claudication 2. L2-3, L3-4 spondylosis with radiculopathy 3. Severe postop pain 4. Acute on chronic anemia, due to blood loss from surgery Hospital Course: Date of procedure: 02/14/21 Time of procedure: 12:30 Procedure & Clinicians Procedure: 1. L2-3, L3-4 Postero-lateral and posterior interbody fusion 2. L2-3, L3-4 interbody cage placement, L3-4 cage was removed 3. L2-3, L3-4 decompressive laminectomy with bilateral facetecomies 4. L2-3, L3-4 Posterior segmental instrumentation 5. Sunman of bone marrow from iliac crest 6. Utilization of microsurgical technique and operating microscope Same procedure as scheduled: Yes Indications: Patient has been having chronic back pain and worsening lumbar radiculopathy. Patient failed multiple conservative management with worsening pain weakness and numbness in her lower extremity.? Patient has been having difficulty performing activity of daily living.? After discussing risks benefits of treatment options, patient elected proceed with surgery. Surgeon: Gilberto Savage Mingler Operator: Dina Bah Click Yes if Unassisted: No Anesthesia Type: General Operative Notes Closure Type: primary Specimen(s): none sent Prosthetic devices, grafts, tissues, transplants, or devices: Globus CREO MIS screws, Rise cage Applied: catheter Estimated Blood Loss (mL): 250 Blood products transfused: none The patient was admitted to the hospital for the above listed procedure for the above listed diagnosis. The patient consented to the procedure, and was taken back to the OR. Following the procedure, the patient has been in stable condition, and has been convalescing very slowly due to pain and actute blood loss anemia. The patient has successfully worked on mobilizing with physical therapy, and is avoiding bending, lifting, twisting. Their pain is better controlled with current pain regimen, and mechanical DVT prophylaxis has been implemented during their hospital stay. Throughout their time in the hospital, the patient has denied fevers, chills, night sweats, chest pain, shortness of breath, or urinary retention. She was symptomatic and therefore had 1 unit of blood transfused on 02/19/2021. Her symptoms have since resolved. The patient will be discharged in stable condition today to SNF. She has a rather extensive pain medication regimen at the moment, but her pain is improving. Pulse ox monitoring while taking both narcotic pain medications and benzos. Standard hip replacement protocols: limit bending, lifting, twisting. Weight- bearing as tolerated with front-wheeled walker. Dressing should remain dry and in place until their follow up visit in the office in approximately 10-14 days (ok to change if it becomes wet, soiled, saturated). Status at Discharge Cognitive/behavioral status at discharge: oriented Functional status at discharge: uses cane/walker Overall status at discharge: patient is progressing back to baseline Exam Vital Signs (past 8 hours): - 02/20/21 08:05 02/20/21 09:23 Temperature 97.8 F Pulse Rate 95 H 79 Respiratory Rate 20 Blood Pressure 134/85 Pulse Oximetry 98 Oxygen Delivery Method Room Air Oxygen Flow Rate 0 Narrative Exam Narrative: Pleasant 75-year-old, resting in bed, mild distress while lying supine, moderate/severe distress when moving. Dressing is clean, dry, intact. Bilateral lower extremity motor functions are grossly intact. Sensation is grossly intact to light touch in bilateral lower extremities. Calves are soft, nontender to palpation. Objective Labs Result Diagrams: 02/20/21 06:58 Labs: Laboratory Results - last 24 hr 02/19/21 02/20/21 09:15 06:58 Hgb 9.0 L Hct 27.7 L Crossmatch See Detail [facility] Medical History Acid reflux Acne (~1951) Anemia Anxiety Atrial fibrillation (~2018) Cataracts, bilateral (~2017) Chicken pox Chronic low back pain (~2014) Chronic pain syndrome Current every day smoker Dyslipidemia History of Mohs micrographic surgery for skin cancer HLD (hyperlipidemia) Hypertension technician terminal and repeater current use of anticoagulant therapy Measles SCC (squamous cell carcinoma) Syncope (~2017) Surgical History Anesthesia History of bilateral tubal ligation History of carpal tunnel surgery of right wrist History of tonsillectomy (~1962) Hx of bilateral cataract extraction Family History Father History of heart disease Mother History of heart disease Hypertension Social History household members: family Smoking Status: Current every day smoker Tobacco: How many years used: 57 quit status: not considering quitting (Too stressed) second hand exposure: Yes alcohol intake: current substance use type: marijuana (Pain relief ) Discharge Assessment & Plan Assessment and Plan Plan of Treatment: -mobilize with PT today. Limit bending, lifting, twisting. Weightbearing as tolerated with front wheel walker -x-ray of the lumbar spine two views due to her significant amount of postoperative pain -we change her pain regimen. Pulse ox monitoring while taking narcotic pain meds and benzos -DC to SNF today with a normal x-ray and current pain regimen. Discharge Plan Discharge Plan Patient Disposition: SNF Discharge orders & Medications Prescriptions: New acetaminophen 500 mg capsule 500 mg PO Q4H Qty: 90 0RF cyclobenzaprine 10 mg Tablet 10 mg PO Q8HR PRN (Reason: Spasms/pain) Qty: 60 0RF diazepam 5 mg Tablet 5 mg PO Q6HR PRN (Reason: Spasms/pain/anxiety) Qty: 30 0RF docusate sodium 100 mg Capsule 100 mg PO BID PRN (Reason: Constipation from narcotic pain meds) Qty: 30 0RF gabapentin [Neurontin] 300 mg Capsule 300 mg PO BID Qty: 60 0RF hydromorphone 2 mg Tablet See Rx Instructions .ROUTE .COMPLEX PRN (Reason: Pain, Moderate (4-6)) Qty: 42 0RF Rx Instructions: Take 1-2 tablets every 3 hours as needed for moderate to severe pain oxycodone [OxyContin] 10 mg Tablet,Oral Only,Ext.Rel.12 Hr 10 mg PO TID Qty: 42 0RF Narcan 4 mg/actuation spray,non-aerosol 1 spray intranasal Q2M PRN (Reason: opioid overdose) Qty: 2 0RF Rx Instructions: spray 1 dose into ONE nostril; alternate nostrils w each dose until help arrives pulse ox monitoring See Rx Instructions .ROUTE .COMPLEX Qty: 1 0RF Rx Instructions: pulse ox monitoring while taking narcotics and benzodiazepines Continued ferrous sulfate 325 mg (65 mg iron) tablet,delayed release (DR/EC) 325 mg PO DAILY Qty: 90 2RF diltiazem HCl 180 mg capsule,extended release 24 hr 180 mg PO DAILY 0RF Eliquis 5 mg tablet 5 mg PO BID 0RF lisinopril 5 mg tablet 5 mg PO DAILY 0RF metoprolol succinate 100 mg tablet extended release 24 hr 100 mg PO DAILY 0RF potassium chloride 10 mEq tablet,ER particles/crystals 20 meq PO DAILY 0RF furosemide 40 mg tablet 40 mg PO DAILY 0RF rosuvastatin 10 mg tablet 10 mg PO BEDTIME 0RF naproxen sodium [Aleve] 220 mg Capsule 440 mg PO BID 0RF alprazolam 0.25 mg Tablet 0.25 mg PO BEDTIME PRN (Reason: Anxiety) 0RF Discontinued hydrocodone-acetaminophen 10-325 mg tablet 1 tab PO Q8H PRN (Reason: pain) Qty: 90 0RF hydrocodone-acetaminophen 10-325 mg Tablet 1 tab PO Q8H PRN (Reason: Pain) 0RF Follow up/Referrals: Kenny Roberson MD [Primary Care Provider] - Gilberto Savage MD [Physician] - (10-14 days for postoperative visit) Diet/Activity/Treatments Diet: Diet as Tolerated and Regular Other treatments: Dressing/Wound care: -Keep dressing in place until postoperative follow-up office visit. -Okay to shower. Keep wound out of direct water stream. Can use PressNSeal plastic wrap to protect from shower stream. No soaking or submerging until all the scabs fall off (approximately 6 weeks). -Please call the office if dressing becomes wet, soiled, or saturated. Activities: -Limit bending, lifting, twisting. -Weight-bearing as tolerated. Use front wheeled walker, and progress to cane when safe. -Continue with home exercises as directed by your physical therapist. -Ice your incision as needed for pain/inflammation/swelling. Protect your skin with a folded pillowcase. Follow-up: -Follow-up with your surgeon or PA in the office in 10-14 days after surgery. -Follow-up with your surgeon 6 weeks postoperatively. Call the office if you have chest pain, shortness of breath, significant swelling that will not resolve with elevating, fever over 101?, significantly worsening pain. [facility] Orthopedics: [phone] Skin/Wound/Dressing Care Report to your healthcare provider any signs of infection, such as:: chills, fever, night sweats, unusual drainage and unusual redness Special Rehabilitation Services Reason for rehabilitation: Post-operative therapy Rehab type: Physical therapy and Occupational therapy Visit Report/Discharge Packet Instructions: DI for Prescription Opioid Use, DI for Transforaminal Lumbar Interbody Fusion Stand Alone Forms: Surgery Discharge Discharge Data Primary Care Provider: Kenny Roberson VTE Deep Vein Thrombosis/Pulmonary Embolism Present on Admission: No
[2021-02-20 12:19] LABS: COVID19 -Nasal RAPID Negative (Negative)
--- NOTE | 2021-02-20 12:33 | DI.CT.S_ITS ---
PROCEDURE: CT LUMBAR SPINE WO CON INDICATIONS: Severe pain s/p TLIF. Check hardware placement TECHNIQUE: Noncontrast 3 mm thick sections acquired from the T12 level to the sacrum. Sagittal and coronal reformats were constructed. For radiation dose reduction, the following was used: automated exposure control. COMPARISON: [facility], CT, CT LUMBAR SPINE WITHOUT CONTRAST, 06/24/2020, 14:58. [facility], CT, CT LUMBAR SPINE WO CON, 02/06/2021, 15:13. FINDINGS: Image quality: Excellent. Bones: There is normal bony alignment. No acute vertebral body compression fractures. No suspicious lytic or blastic bony lesions. No pars defects. Postoperative changes are seen, with bilateral pedicle screws at the L2 and L4 levels. There is also a left-sided screw at L3. The screws appear well placed. Disc spacers are seen at L2-L3 and at L3-L4. Vertical fixation rods are seen. No findings of hardware failure or hardware loosening are seen. Within the postoperative bed, an expected amount of fluid and gas can be seen. Previously placed vertebroplasty cement can be seen within the L3 vertebral body. Stable fracture can be seen of L3. Stable degenerative changes are seen. Mild retrolisthesis can be seen at L2-L3 and L3-L4. Soft tissues: Overlying soft tissue postoperative changes are seen. No retroperitoneal masses or hematomas. Visualized aorta is normal in caliber. Atherosclerotic calcification is noted. IMPRESSION: Unremarkable postoperative changes. Normal hardware placement can be seen. No postoperative hardware abnormality can be seen. Dictated by: Don Beltre M.D. on 02/20/2021 at 13:20 Approved by: Don Beltre M.D. on 02/20/2021 at 13:25
--- NOTE | 2021-02-20 12:45 | PC.NURSE ---
Day shift: Pt off unit for CT scan at approx 1245.
--- NOTE | 2021-02-20 13:07 | PC.NURSE ---
Day shift: Back on AC unit from CT at approx 1305. Pt asleep at this time and call light in reach. Pt eating. Pt states I'm doing ok.
[2021-02-20] MEDS: HYDROMORPHONE 2 MG TABLET PO (15:09)
--- NOTE | 2021-02-20 15:18 | PC.NURSE ---
Day shift: Pt has all personal belongings. Medicated for pain and the WC ride to [facility] at this time approx. IV removed. Left unit at approx 1530 with SNF transport person. She stated I'm going to miss you guys. SHe seems to be in good spirits. She was also in contact with family and family is aware that she is going to [facility] at this time.
--- NOTE | 2021-02-20 15:25 | PT-IP ANOTE ---
Attempted to see pt at 15:25, but pt was d/c to SNF.
--- NOTE | 2021-02-20 15:40 | PC.NURSE ---
Day shift: Report given to Amy at approx 1540. All questions answered.
--- NOTE | 2021-02-22 09:03 | CM.DPNOTE ---
DC Note Late Entry Patient DC 02.20.21 to [facility] after much deliberation from Ortho team re: management of pain medication; In addition, there was suspicion that patient's spinal hardware had moved which might have been the etiology of outstanding pain. Inevitably, Dr Savage felt hardware did not appear irregular on imaging and patient could safely DC to SNF Coordinated this DC /September at [facility]; w/c p/u was scheduled for 1500 and all completed and signed DC ppk/med list were faxed w/patient's PASRR. COVID test was updated. Ortho JERRICA Collins had to e fax Xanax Rx to [place] pharmacy remotely. Patient was updated throughout the day and remained agreeable to plan. Plan: DC 02.20.21 via w/c wilmer [facility]
== END 2021-02-20 15:40 | DRG 454 ==
LOC: OR 10:42 → AC 10:43
PROVIDERS: Physician Assistant Medical; Admitting Provider Orthopaedic Surgery Orthopaedic Surgery of the Spine; Family Provider Family Medicine; PCP Family Medicine; Referring Provider Orthopaedic Surgery Orthopaedic Surgery of the Spine; Visit Provider Orthopaedic Surgery Orthopaedic Surgery of the Spine
PROC: 0SG00AJ Fusion of Lumbar Vertebral Joint with Interbody Fusion Device, Posterior Approach, Anterior Column, Open Approach (ICD-10-PCS; principal; 2021-02-14 12:15)
DX: M48.062 Spinal stenosis, lumbar region with neurogenic claudication (principal); D62 Acute posthemorrhagic anemia; G97.41 Accidental puncture or laceration of dura during a procedure; M43.16 Spondylolisthesis, lumbar region; G89.4 Chronic pain syndrome; M81.0 Age-related osteoporosis without current pathological fracture; I48.91 Unspecified atrial fibrillation; F17.200 Nicotine dependence, unspecified, uncomplicated; Z20.822 Contact with and (suspected) exposure to COVID-19; M47.26 Other spondylosis with radiculopathy, lumbar region; G89.18 Other acute postprocedural pain; I10 Essential (primary) hypertension; E78.5 Hyperlipidemia, unspecified; F41.9 Anxiety disorder, unspecified
CPT/HCPCS: 36415; 36430; 72100; 72131; 76000; 85014; 85018; 86850; 86900; 86901; 87635; 94760; 97116; 97162; 97166; 97530; 97535; C1776; C9803; P9016; C9290; J0171; J0690; J1100; J1170; J2060; J2250; J2405; J2704; J3010; J3360

== ENCOUNTER 2021-03-19 06:29 | Emergency (ER) | payer MEDICARE, SELFPAY ==
[2021-02-14 18:55] VITALS: BMI 25.6
[2021-03-19 06:30] VITALS: BP 152/66; PULSE 74; RESP 20; TEMP 36.9; O2SAT 98; BMI 24.5
[2021-03-19 07:13] LABS: Alanine Aminotransferase 14 IU/L (<35); Albumin 4.3 g/dL (3.5-5.0); Albumin Globulin Ratio 1.3 (1.0-2.8); Alkaline Phosphatase 91 U/L (38-126); Aspartate Aminotransferase 24 IU/L (14-36); BUN Creatinine Ratio 23.3 (6-22); Bilirubin Total 0.5 mg/dL (0.2-1.3); Blood Urea Nitrogen 17 mg/dL (7-17); Carbon Dioxide 23 mmol/L (22-32); Chloride 105 mmol/L (98-107); Estimated Glomerular Filt Rate > 60.0 mL/min (>60); Globulin 3.2 g/dL (1.7-4.1); Glucose 121 mg/dL (80-110); HEMOLYSIS 16 (0-50); Lipase 47 U/L (23-300); Potassium 3.6 mmol/L (3.4-5.1); Sodium 136 mmol/L (137-145); Total Protein 7.5 g/dL (6.3-8.2)
[2021-03-19 07:24] LABS: COVID19 -Nasal RAPID Negative (Negative)
[2021-03-19 07:26] LABS: Add Manual Diff / Slide Review NO; Basophils Absolute Auto 100 /uL (0-100); Basophils Percent Auto 1.2 % (0-2); Eosinophils Absolute Auto 100 /uL (0-450); Hematocrit 32.5 % (36-46); Hemoglobin 10.7 g/dL (12.0-16.0); Lymphocytes Absolute Auto 1500 /uL (1100-4500); Lymphocytes Percent Auto 22.4 % (25-40); Monocytes Absolute Auto 400 /uL (0-900); Monocytes Percent Auto 6.1 % (3-14); Neutrophils Absolute Auto 4700 /uL (1500-7000); Neutrophils Percent Auto 69.3 % (50-75); Platelet Count 421 X10^3/uL (150-400); Red Blood Cell Count 4.12 X10^6/uL (4.0-5.2); Red Cell Distribution Width 26.2 % (11.6-14.8); White Blood Cell Count 6.8 X10^3/uL (4.5-11.0)
--- NOTE | 2021-03-19 07:34 | ED_ITS ---
HPI - General Adult General Chief complaint: Fever Stated complaint: abd pain/chills/nausea x1 day Time Seen by Provider: 03/19/21 06:56 Source: patient Mode of arrival: Ambulatory History of Present Illness HPI narrative: Patient is a 75-year-old female here for evaluation of several days of nausea. She denies abdominal pain. Has not taken anything for the nausea. Has had chills. Started to have diarrhea today. One month ago underwent a lumbar spinal surgery. No prior abdominal surgeries. Is taking pain medications because of the surgery. No chest pain. No shortness of breath. States she generally feels very poorly. Related Data Home Medications Medication Instructions Recorded Confirmed apixaban 5 mg tablet (Eliquis) 5 mg PO BID 09/25/20 02/14/21 diltiazem HCl 180 mg capsule,24 180 mg PO DAILY 09/25/20 02/14/21 hr,extended release furosemide 40 mg tablet 40 mg PO DAILY 09/25/20 02/14/21 lisinopril 5 mg tablet 5 mg PO DAILY 09/25/20 02/14/21 metoprolol succinate 100 mg 100 mg PO DAILY 09/25/20 02/14/21 tablet,extended release 24 hr potassium chloride 10 mEq 20 meq PO DAILY 09/25/20 02/14/21 tablet,extended release(part/cryst) rosuvastatin 10 mg tablet 10 mg PO BEDTIME 09/25/20 02/14/21 alprazolam 0.25 mg tablet 0.25 mg PO BEDTIME PRN 02/05/21 02/14/21 naproxen sodium 220 mg capsule 440 mg PO BID 02/05/21 02/14/21 (Aleve) Previous Rx's Medication Instructions Recorded ferrous sulfate 325 mg (65 mg 325 mg PO DAILY #90 tab 01/27/21 iron) tablet,delayed release acetaminophen 500 mg capsule 500 mg PO Q4H #90 cap 02/20/21 cyclobenzaprine 10 mg tablet 10 mg PO Q8HR PRN #60 tab 02/20/21 diazepam 5 mg tablet 5 mg PO Q6HR PRN #30 tab 02/20/21 docusate sodium 100 mg capsule 100 mg PO BID PRN #30 cap 02/20/21 gabapentin 300 mg capsule 300 mg PO BID #60 cap 02/20/21 (Neurontin) hydromorphone 2 mg tablet See Rx Instructions .ROUTE 11/18/21 .COMPLEX PRN #42 tab naloxone 4 mg/actuation nasal 1 spray INTRANASAL Q2M PRN #2 ea 02/20/21 spray (Narcan) oxycodone 10 mg tablet,crush 10 mg PO TID #42 tab 02/20/21 resistant,extended release 12 hr (OxyContin) pulse ox monitoring See Rx Instructions .ROUTE 02/20/21 .COMPLEX #1 ea ondansetron 4 mg disintegrating 4 mg PO Q6H PRN #14 tab 03/19/21 tablet Allergies Allergy/AdvReac Type Severity Reaction Status Date / Time No Known Drug Allergies Allergy Verified 09/25/20 14:44 Review of Systems Constitutional Constitutional: Reports chills and Denies fever(s) Cardiovascular Cardiovascular: Denies chest pain and Denies dyspnea Respiratory Respiratory: Denies dyspnea Gastrointestinal Gastrointestinal: Denies abdominal pain, Reports diarrhea and Reports nausea Genitourinary Genitourinary: Denies dysuria Integumentary/Breasts Skin/Breast: Reports system reviewed and no additional complaints, except as documented Hematologic/Lymphatic On Anticoagulants: No Patient History Medical History Acid reflux Acne (~1951) Anemia Anxiety Atrial fibrillation (~2018) Cataracts, bilateral (~2017) Chicken pox Chronic low back pain (~2014) Chronic pain syndrome Current every day smoker Dyslipidemia History of Mohs micrographic surgery for skin cancer HLD (hyperlipidemia) 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 Measles SCC (squamous cell carcinoma) Syncope (~2018) Surgical History Anesthesia History of bilateral tubal ligation History of carpal tunnel surgery of right wrist History of tonsillectomy (~1962) Hx of bilateral cataract extraction Family History Father History of heart disease Mother History of heart disease Hypertension Social History household members: family Smoking Status: Current every day smoker Tobacco: How many years used: 57 quit status: not considering quitting (Too stressed) second hand exposure: Yes alcohol intake: current substance use type: marijuana (Pain relief ) Smoking Status: Current every day smoker alcohol intake frequency: holidays/special occasions only Substance Use Type: does not use Exam Initial Vital Signs Initial Vital Signs: Vital Signs Temperature 98.4 F 03/19/21 06:30 Pulse Rate 74 03/19/21 06:30 Respiratory Rate 20 03/19/21 06:30 Blood Pressure 152/66 H 03/19/21 06:30 Pulse Oximetry 98 03/19/21 06:30 Const General: cooperative, healthy appearing and No ill appearing HENMT Head: normal to inspection and normocephalic Resp Effort & Inspection: normal respiratory effort Auscultation: clear to auscultation bilaterally Cardio Rate: regular rate Rhythm: regular rhythm GI Inspection: non-distended Palpation: soft, No guarding and No tender Skin General: no rashes or lesions noted Neuro General: patient alert, patient awake and moves all extremities Extrem General: normal to inspection and capillary refill normal Psych Appearance: grossly normal and well kempt Course Orders Ordered: ED Orders 03/19/21 06:40 COVID19 -Nasal swab/Pre-Proc Stat 03/19/21 06:45 Complete Blood Count AUTO DIFF Stat Comprehensive Metabolic Panel Stat Lipase Stat Troponin & CK Cardiac Panel Stat 03/19/21 06:52 EKG-12 Lead Stat 03/19/21 07:47 CT abdomen pelvis w con Stat Sodium Chloride (Normal Saline 0.9%) 1,000 mls @ 1,000 mls/hr IV BOLUS ONE Stop: 03/19/21 08:31 Discontinued Medications Ondansetron HCl (Ondansetron 4 Mg/2 Ml Inj) 4 mg IV NOW ONE Stop: 03/19/21 07:33 Vital Signs Vital signs: Vital Signs - 8 hr 03/19/21 06:30 Temperature 98.4 F Pulse Rate 74 Respiratory Rate 20 Blood Pressure 152/66 H Pulse Oximetry 98 Medical Decision Making Lab Data Lab results reviewed: Yes I reviewed the patient's lab results. Result diagrams: 03/19/21 06:45 03/19/21 06:45 Labs: Lab Results 03/19/21 03/19/21 03/19/21 Range/Units 06:40 06:45 06:45 WBC 6.8 (4.5-11.0) X10^3/uL RBC 4.12 (4.0-5.2) X10^6/uL Hgb 10.7 L (12.0-16.0) g/dL Hct 32.5 L (36-46) % MCV 79.0 L (80-100) fL MCH 26.0 (26-34) PG MCHC 33.0 (30-36) % RDW 26.2 H (11.6-14.8) % Plt Count 421 H (150-400) X10^3/uL Neut % (Auto) 69.3 (50-75) % Lymph % (Auto) 22.4 L (25-40) % Wetzel % (Auto) 6.1 (3-14) % Eos % (Auto) 1.0 L (2-4) % Baso % (Auto) 1.2 (0-2) % Neut # (Auto) 4700 (0347-7977) /uL Lymph # (Auto) 1500 (9859-3336) /uL Wetzel # (Auto) 400 (0-900) /uL Eos # (Auto) 100 (0-450) /uL Baso # (Auto) 100 (0-100) /uL RBC Morphology Not Reportable Hypochromasia 2+ H Poikilocytosis 1+ H Anisocytosis 2+ H Sodium 136 L (137-145) mmol/L Potassium 3.6 (3.4-5.1) mmol/L Chloride 105 (98-107) mmol/L Carbon Dioxide 23 (22-32) mmol/L BUN 17 (7-17) mg/dL Creatinine 0.73 (0.52-1.04) mg/dL Estimated GFR > 60.0 (>60) mL/min BUN/Creatinine Ratio 23.3 H (6-22) Glucose 121 H (80-110) mg/dL Calcium 10.0 (8.4-10.2) mg/dL Total Bilirubin 0.5 (0.2-1.3) mg/dL AST 24 (14-36) IU/L ALT 14 (<35) IU/L Alkaline Phosphatase 91 (38-126) U/L Total Creatine Kinase (30-135) U/L CK-MB (CK-2) CK-MB (CK-2) Rel Index Troponin I (0.01-0.034) ng/mL Total Protein 7.5 (6.3-8.2) g/dL Albumin 4.3 (3.5-5.0) g/dL Globulin 3.2 (1.7-4.1) g/dL Albumin/Globulin Ratio 1.3 (1.0-2.8) Lipase 47 (23-300) U/L SARS-CoV-2 (PCR) Negative (Negative) 03/19/21 Range/Units 06:45 WBC (4.5-11.0) X10^3/uL RBC (4.0-5.2) X10^6/uL Hgb (12.0-16.0) g/dL Hct (36-46) % MCV (80-100) fL MCH (26-34) PG MCHC (30-36) % RDW (11.6-14.8) % Plt Count (150-400) X10^3/uL Neut % (Auto) (50-75) % Lymph % (Auto) (25-40) % Wetzel % (Auto) (3-14) % Eos % (Auto) (2-4) % Baso % (Auto) (0-2) % Neut # (Auto) (3927-3113) /uL Lymph # (Auto) (1557-1450) /uL Wetzel # (Auto) (0-900) /uL Eos # (Auto) (0-450) /uL Baso # (Auto) (0-100) /uL RBC Morphology Hypochromasia Poikilocytosis Anisocytosis Sodium (137-145) mmol/L Potassium (3.4-5.1) mmol/L Chloride (98-107) mmol/L Carbon Dioxide (22-32) mmol/L BUN (7-17) mg/dL Creatinine (0.52-1.04) mg/dL Estimated GFR (>60) mL/min BUN/Creatinine Ratio (6-22) Glucose (80-110) mg/dL Calcium (8.4-10.2) mg/dL Total Bilirubin (0.2-1.3) mg/dL AST (14-36) IU/L ALT (<35) IU/L Alkaline Phosphatase (38-126) U/L Total Creatine Kinase 62 (30-135) U/L CK-MB (CK-2) TNP CK-MB (CK-2) Rel Index TNP Troponin I < 0.012 (0.01-0.034) ng/mL Total Protein (6.3-8.2) g/dL Albumin (3.5-5.0) g/dL Globulin (1.7-4.1) g/dL Albumin/Globulin Ratio (1.0-2.8) Lipase (23-300) U/L SARS-CoV-2 (PCR) (Negative) Imaging Data CT scan - abdomen/pelvis: Radiologist's Impression: [address] [address] [address] Scan Report Signed Patient: Mechelle Louis MR#: [id number] : 1945 Acct:[id number] Age/Sex: 75 / F Date of Service: 03/19/21 Loc: ED Accession Number: [id number] ?? Procedure: CT abdomen pelvis w con Ordering Provider: Floyd Hardy D.O. PROCEDURE:? CT ABDOMEN PELVIS W CON ? INDICATIONS:? Generalized abdominal pain and nausea ? TECHNIQUE:? After the administration of intravenous contrast, axial sections acquired from the lung bases to the pubic symphysis.? Coronal and sagittal reformats were performed.? For radiation dose reduction, the following was used:? automated exposure control, adjustment of mA and/or kV according to patient size.? ? COMPARISON:? [facility], CT, CT LUMBAR SPINE WO CON, 02/20/2021, 12:55. ? FINDINGS:? Image quality:? Excellent.? ? Lung bases:? Unremarkable. Heart:? No significant findings. ? ABDOMEN: Liver:? Unremarkable.? ? Gallbladder:? Unremarkable.? ? Biliary ducts:? Unremarkable.? ? Pancreas:? Unremarkable.? ? Spleen:? Unremarkable.? ? Adrenal Glands:? Unremarkable.? ? Kidneys and Ureters:? Atrophied left kidney with multiple cortical defects consistent with remote insults.? Normal-sized right kidney.? No hydronephrosis.? Symmetric enhancement. ? Stomach and Bowel:? Sigmoid diverticulosis without evidence of diverticulitis.? No dilated loops.? Peritoneum:? No abnormal intraperitoneal fluid.? No free air.? ? Ventral Wall:? Tiny fat containing umbilical hernia. ? No hernias.? Abdominal Nodes:? No retroperitoneal or mesenteric adenopathy by size criteria.? Vessels:? Aorta and inferior vena cava are normal in size.? Moderate to severe SMA stenosis. ? PELVIS: Pelvic Organs:? Unremarkable.? ? Bladder:? Unremarkable.? ? Pelvic Nodes: No enlarged lymph nodes.? Miscellaneous:? Small fat containing left inguinal hernia. ? Bones:? Posterior lateral farida and pedicle screw fixation bridging L2, L3, and L4.? L3 compression has been previously treated with percutaneous cement.? Left hemilaminectomy at L2-L3 and L3-L4.? No acute compression fractures.? Lumbar degenerative change.? No lytic or blastic bony lesions. ? ? IMPRESSION:? ? 1. No evidence of acute abdominal process. ? 2. A moderate to severe SMA stenosis is noted. ? 3. Sigmoid diverticulosis without evidence of diverticulitis.? ? ? Dictated by: Oni Maguire M.D. on 03/19/2021 at 7:53 ? ? Approved by: Oni Maguire M.D. on 03/19/2021 at 7:59?? ECG Data Attestation: I personally reviewed and interpreted this ECG as follows: Prior ECG tracings: available for review Interpretation: Sinus rhythm Ventricular rate 84 Normal axis Normal QRS Normal QTC Nonspecific ST T wave changes MDM Narrative Medical decision making narrative: CT scan today is reassuring and shows no signs of surgical pathology. Labs are reassuring. EKG is unremarkable. Troponin is negative. No indication for surgical consultation. No indication for antibiotics. Will send home with nausea medication. She has pain medication at home already. We did discuss return precautions and follow-up instructions. Patient expressed understanding and agreement. Discharge Plan Departure Patient Disposition: Home Clinical Impression: Nausea, Diarrhea Instructions: Diarrhea, DI for Nausea -- Adult Activity Restrictions/Additional Instructions: I do recommend that you increase your fluid intake. Contact your primary doctor for follow-up. Continue to take all of your medications as directed. Nausea medication was electronically transmitted to the pharmacy of your choice. Return to the emergency department for any new or worsening symptoms Prescriptions: New ondansetron 4 mg tablet,disintegrating 4 mg PO Q6H PRN (Reason: nausea and vomiting) Qty: 14 0RF No Action ferrous sulfate 325 mg (65 mg iron) tablet,delayed release (DR/EC) 325 mg PO DAILY Qty: 90 2RF diltiazem HCl 180 mg capsule,extended release 24 hr 180 mg PO DAILY 0RF Eliquis 5 mg tablet 5 mg PO BID 0RF lisinopril 5 mg tablet 5 mg PO DAILY 0RF metoprolol succinate 100 mg tablet extended release 24 hr 100 mg PO DAILY 0RF potassium chloride 10 mEq tablet,ER particles/crystals 20 meq PO DAILY 0RF furosemide 40 mg tablet 40 mg PO DAILY 0RF rosuvastatin 10 mg tablet 10 mg PO BEDTIME 0RF naproxen sodium [Aleve] 220 mg Capsule 440 mg PO BID 0RF alprazolam 0.25 mg Tablet 0.25 mg PO BEDTIME PRN (Reason: Anxiety) 0RF acetaminophen 500 mg capsule 500 mg PO Q4H Qty: 90 0RF cyclobenzaprine 10 mg Tablet 10 mg PO Q8HR PRN (Reason: Spasms/pain) Qty: 60 0RF diazepam 5 mg Tablet 5 mg PO Q6HR PRN (Reason: Spasms/pain/anxiety) Qty: 30 0RF docusate sodium 100 mg Capsule 100 mg PO BID PRN (Reason: Constipation from narcotic pain meds) Qty: 30 0RF gabapentin [Neurontin] 300 mg Capsule 300 mg PO BID Qty: 60 0RF hydromorphone 2 mg Tablet See Rx Instructions .ROUTE .COMPLEX PRN (Reason: Pain, Moderate (4-6)) Qty: 42 0RF Rx Instructions: Take 1-2 tablets every 3 hours as needed for moderate to severe pain oxycodone [OxyContin] 10 mg Tablet,Oral Only,Ext.Rel.12 Hr 10 mg PO TID Qty: 42 0RF Narcan 4 mg/actuation spray,non-aerosol 1 spray intranasal Q2M PRN (Reason: opioid overdose) Qty: 2 0RF Rx Instructions: spray 1 dose into ONE nostril; alternate nostrils w each dose until help arri ves pulse ox monitoring See Rx Instructions .ROUTE .COMPLEX Qty: 1 0RF Rx Instructions: pulse ox monitoring while taking narcotics and benzodiazepines Referrals: Kenny Roberson MD [Primary Care Provider] -
--- NOTE | 2021-03-19 07:47 | DI.CT.S_ITS ---
PROCEDURE: CT ABDOMEN PELVIS W CON INDICATIONS: Generalized abdominal pain and nausea TECHNIQUE: After the administration of intravenous contrast, axial sections acquired from the lung bases to the pubic symphysis. Coronal and sagittal reformats were performed. For radiation dose reduction, the following was used: automated exposure control, adjustment of mA and/or kV according to patient size. COMPARISON: [facility], CT, CT LUMBAR SPINE WO CON, 02/20/2021, 12:55. FINDINGS: Image quality: Excellent. Lung bases: Unremarkable. Heart: No significant findings. ABDOMEN: Liver: Unremarkable. Gallbladder: Unremarkable. Biliary ducts: Unremarkable. Pancreas: Unremarkable. Spleen: Unremarkable. Adrenal Glands: Unremarkable. Kidneys and Ureters: Atrophied left kidney with multiple cortical defects consistent with remote insults. Normal-sized right kidney. No hydronephrosis. Symmetric enhancement. Stomach and Bowel: Sigmoid diverticulosis without evidence of diverticulitis. No dilated loops. Peritoneum: No abnormal intraperitoneal fluid. No free air. Ventral Wall: Tiny fat containing umbilical hernia. No hernias. Abdominal Nodes: No retroperitoneal or mesenteric adenopathy by size criteria. Vessels: Aorta and inferior vena cava are normal in size. Moderate to severe SMA stenosis. PELVIS: Pelvic Organs: Unremarkable. Bladder: Unremarkable. Pelvic Nodes: No enlarged lymph nodes. Miscellaneous: Small fat containing left inguinal hernia. Bones: Posterior lateral farida and pedicle screw fixation bridging L2, L3, and L4. L3 compression has been previously treated with percutaneous cement. Left hemilaminectomy at L2-L3 and L3-L4. No acute compression fractures. Lumbar degenerative change. No lytic or blastic bony lesions. IMPRESSION: 1. No evidence of acute abdominal process. 2. A moderate to severe SMA stenosis is noted. 3. Sigmoid diverticulosis without evidence of diverticulitis. Dictated by: Oni Maguire M.D. on 03/19/2021 at 7:53 Approved by: Oni Maguire M.D. on 03/19/2021 at 7:59
[2021-03-19 07:57] LABS: Creatine Kinase 62 U/L (30-135)
[2021-03-19 08:07] LABS: Anisocytosis 2+; Hypochromasia 2+; Poikilocytosis 1+
[2021-03-19 08:10] LABS: Troponin I < 0.012 ng/mL (0.01-0.034)
[2021-03-19] MEDS: ONDANSETRON 4 MG/2 ML INJ IV (08:30)
== END 2021-03-19 08:48 | disposition home or self-care (01) ==
PROVIDERS: Emergency Medicine; Emergency Provider Emergency Medicine; Family Provider Family Medicine; PCP Family Medicine
DX: R11.0 Nausea (principal); R19.7 Diarrhea, unspecified; I10 Essential (primary) hypertension; Z20.822 Contact with and (suspected) exposure to COVID-19
CPT/HCPCS: 36415; 74177; 80053; 82550; 83690; 84484; 85025; 87635; 93005; 93010; 96374; 99284; C9803; J2405

== ENCOUNTER → 2021-05-13 16:41 | Outpatient (CLI) | payer MEDICARE, SELFPAY ==
[2021-02-14 18:55] VITALS: BMI 25.6
--- NOTE | 2021-05-13 16:44 | DI.RAD.S_ITS ---
PROCEDURE: XR SHOULDER LT MIN 2V INDICATIONS: left shoulder pain TECHNIQUE: 3 views of the shoulder were acquired. COMPARISON: None. FINDINGS: Bones: No fractures or dislocations. No suspicious bony lesions. There is severe glenohumeral joint degeneration and moderate acromioclavicular joint degeneration. Visualized ribs appear intact. Soft tissues: Calcific densities below the glenoid may be intra-articular bodies. IMPRESSION: 1. 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 2. Question intra-articular bodies inferior to the glenohumeral joint. Dictated by: Tarah Henry M.D. on 05/13/2021 at 17:08 Approved by: Tarah Henry M.D. on 05/13/2021 at 17:10
== END ==
PROVIDERS: Family Provider Family Medicine; PCP Family Medicine; Referring Provider Family Medicine; Visit Provider Family Medicine
DX: M25.512 Pain in left shoulder (principal); M19.012 Primary osteoarthritis, left shoulder; M54.50 Low back pain, unspecified; I10 Essential (primary) hypertension; F41.8 Other specified anxiety disorders; G89.4 Chronic pain syndrome
CPT/HCPCS: 73030

== ENCOUNTER → 2021-08-07 10:19 | Outpatient (CLI) | payer MEDICARE, SELFPAY ==
[2021-02-14 18:55] VITALS: BMI 25.6
[2021-08-07 11:51] LABS: Add Manual Diff / Slide Review NO; Basophils Absolute Auto 0 /uL (0-100); Basophils Percent Auto 0.7 % (0-2); Eosinophils Absolute Auto 100 /uL (0-450); Hematocrit 37.3 % (36-46); Lymphocytes Absolute Auto 1600 /uL (1100-4500); Lymphocytes Percent Auto 22.5 % (25-40); Mean Corpuscular HGB Conc 34.9 % (30-36); Mean Corpuscular Hemoglobin 30.3 PG (26-34); Mean Corpuscular Volume 86.7 fL (80-100); Monocytes Absolute Auto 600 /uL (0-900); Monocytes Percent Auto 8.1 % (3-14); Neutrophils Absolute Auto 4600 /uL (1500-7000); Neutrophils Percent Auto 66.7 % (50-75); Platelet Count 344 X10^3/uL (150-400); Red Blood Cell Count 4.31 X10^6/uL (4.0-5.2); Red Cell Distribution Width 18.2 % (11.6-14.8); White Blood Cell Count 6.9 X10^3/uL (4.5-11.0)
[2021-08-07 12:19] LABS: Alanine Aminotransferase 15 IU/L (<35); Albumin 4.1 g/dL (3.5-5.0); Albumin Globulin Ratio 1.5 (1.0-2.8); Alkaline Phosphatase 85 U/L (38-126); Aspartate Aminotransferase 22 IU/L (14-36); BUN Creatinine Ratio 18.2 (6-22); Bilirubin Total 0.5 mg/dL (0.2-1.3); Blood Urea Nitrogen 12 mg/dL (7-17); Calcium 9.1 mg/dL (8.4-10.2); Carbon Dioxide 28 mmol/L (22-32); Chloride 96 mmol/L (98-107); Cholesterol 150 mg/dL (140-199); Estimated Glomerular Filt Rate > 60 mL/min (>60); Globulin 2.7 g/dL (1.7-4.1); Glucose 107 mg/dL (80-110); HDL Cholesterol 62 mg/dL (40-60); HEMOLYSIS < 15 (0-50); LDL Cholesterol Calculated 71 mg/dL (<100); Potassium 4.6 mmol/L (3.4-5.1); Sodium 132 mmol/L (137-145); Total Protein 6.8 g/dL (6.3-8.2); Triglycerides 87 mg/dL (35-150)
[2021-08-07 12:22] LABS: Creatinine Urine Random 32.7 mg/dL
[2021-08-07 12:24] LABS: Microalbumi Creatinin Ratio Ur 18.3 ug/mg CR (<30); Microalbumin Urine Random 0.6 mg/dL (0-1.6)
[2021-08-07 12:52] LABS: TSH w/ Reflex to FT4 1.73 uIU/mL (0.47-4.68)
== END ==
PROVIDERS: Family Provider Family Medicine; PCP Family Medicine; Referring Provider Family Medicine; Visit Provider Family Medicine
DX: D64.9 Anemia, unspecified (principal); I10 Essential (primary) hypertension; F41.8 Other specified anxiety disorders; G89.4 Chronic pain syndrome
CPT/HCPCS: 36415; 80053; 80061; 82043; 82570; 84443; 85025

== ENCOUNTER 2021-10-02 22:48 | Emergency (ER) | payer MEDICARE, SELFPAY ==
[2021-02-14 18:55] VITALS: BMI 25.6
--- NOTE | 2021-10-02 22:54 | DI.RAD.S_ITS ---
PROCEDURE: XR CHEST 1V INDICATIONS: syncope workup TECHNIQUE: One view of the chest was acquired. COMPARISON: None. FINDINGS: Surgical changes and devices: Postsurgical changes partially visualized within the lumbar spine. Lungs and pleura: Lungs are clear. No pleural effusions or pneumothorax. Mediastinum: Mediastinal contours appear normal. Heart size is normal. Bones and chest wall: No suspicious bony lesions. Overlying soft tissues appear unremarkable. IMPRESSION: 1. No acute cardiopulmonary disease. Dictated by: Rian Ramos M.D. on 10/03/2021 at 0:27 Approved by: Rian Ramos M.D. on 10/03/2021 at 0:28
[2021-10-02 22:55] VITALS: BP 111/73; PULSE 91; RESP 18; TEMP 36.6; O2SAT 98; BMI 27.3
[2021-10-02 22:56] VITALS: BP 111/73; PULSE 94; RESP 21
[2021-10-02 23:00] VITALS: PULSE 92; RESP 18
[2021-10-02 23:22] LABS: Add Manual Diff / Slide Review NO; Basophils Absolute Auto 0 /uL (0-100); Basophils Percent Auto 0.4 % (0-2); Eosinophils Absolute Auto 0 /uL (0-450); Eosinophils Percent Auto 0.2 % (2-4); Hemoglobin 11.1 g/dL (12.0-16.0); Lymphocytes Absolute Auto 1400 /uL (1100-4500); Lymphocytes Percent Auto 11.2 % (25-40); Mean Corpuscular HGB Conc 34.7 % (30-36); Mean Corpuscular Volume 89.5 fL (80-100); Monocytes Absolute Auto 600 /uL (0-900); Neutrophils Absolute Auto 10700 /uL (1500-7000); Neutrophils Percent Auto 83.2 % (50-75); Platelet Count 322 X10^3/uL (150-400); Red Blood Cell Count 3.57 X10^6/uL (4.0-5.2); Red Cell Distribution Width 15.4 % (11.6-14.8); White Blood Cell Count 12.9 X10^3/uL (4.5-11.0)
[2021-10-02 23:27] LABS: Creatine Kinase 57 U/L (30-135)
[2021-10-02 23:30] VITALS: PULSE 99; RESP 25; O2SAT 94
[2021-10-02 23:40] LABS: Troponin I < 0.012 ng/mL (0.01-0.034)
[2021-10-02 23:43] LABS: Alanine Aminotransferase 13 IU/L (<35); Albumin 3.6 g/dL (3.5-5.0); Albumin Globulin Ratio 1.4 (1.0-2.8); Alkaline Phosphatase 62 U/L (38-126); Aspartate Aminotransferase 21 IU/L (14-36); BUN Creatinine Ratio 53.8 (6-22); Bilirubin Total 0.5 mg/dL (0.2-1.3); Blood Urea Nitrogen 49 mg/dL (7-17); Calcium 9.7 mg/dL (8.4-10.2); Carbon Dioxide 24 mmol/L (22-32); Chloride 101 mmol/L (98-107); Estimated Glomerular Filt Rate > 60 mL/min (>60); Globulin 2.5 g/dL (1.7-4.1); Glucose 119 mg/dL (80-110); HEMOLYSIS < 15 (0-50); Potassium 3.5 mmol/L (3.4-5.1); Sodium 135 mmol/L (137-145); Total Protein 6.1 g/dL (6.3-8.2)
[2021-10-02 23:46] VITALS: BP 115/73; PULSE 101; RESP 24; O2SAT 92
[2021-10-03] VITALS (8 sets, daily range): BP systolic 121–133; BP diastolic 78–82; PULSE 99–108; RESP 16–29; O2SAT 92–96
--- NOTE | 2021-10-03 01:44 | DI.CT.S_ITS ---
PROCEDURE: CT ABDOMEN PELVIS W CON INDICATIONS: IV contrast only/lower abdominal pain/vomiting/diarrhea TECHNIQUE: After the administration of intravenous contrast, axial sections acquired from the lung bases to the pubic symphysis. Coronal and sagittal reformats were performed. For radiation dose reduction, the following was used: automated exposure control, adjustment of mA and/or kV according to patient size. COMPARISON: [facility], CT, CT ABDOMEN PELVIS W CON, 03/19/2021, 7:43. FINDINGS: Image quality: Excellent. Lung bases: Unremarkable. Heart: No significant findings. ABDOMEN: Liver: Bibasilar scarring/atelectasis is seen. Gallbladder: Gallbladder is within normal limits. Biliary ducts: Unremarkable. Pancreas: Unremarkable. Spleen: Unremarkable. Adrenal Glands: Thickened bilateral adrenal gland is seen with suggestion of 1 x 1.4 cm right adrenal nodule. Kidneys and Ureters: No stones or hydronephrosis. Bilateral renal cortical thinning is noted particularly in left kidney. No hydroureter.. Stomach and Bowel: There is no bowel obstruction. No stomach or small bowel wall thickening. Appendix is visualized and is within normal limits. Questionable wall thickening involving descending colon and sigmoid colon is seen which could be due to under distension. Low-grade colitis cannot be excluded. Sigmoid diverticulosis is again seen. No CT evidence of acute diverticulitis. No abscess collection. Peritoneum: No abnormal intraperitoneal fluid. No free air. Ventral Wall: No hernias. Abdominal Nodes: No retroperitoneal or mesenteric adenopathy by size criteria. Vessels: Aorta and inferior vena cava are normal in size. Severe atherosclerotic calcifications throughout abdominal aorta and its major branches are seen. High-grade stenosis at bifurcation of left internal and external iliac artery is noted which was also seen on previous study. PELVIS: Pelvic Organs: Unremarkable. Bladder: Unremarkable. Pelvic Nodes: No enlarged lymph nodes. Miscellaneous: No hernias are seen. Bones: No suspicious bony lesion. No acute vertebral body compression fracture. Fusion hardware from L2 through L4 levels are again seen. There is prior L3 vertebral plasty. IMPRESSION: 1. Finding may represent low-grade colitis involving descending colon and sigmoid colon. Sigmoid diverticulosis without evidence of acute diverticulitis. No abscess collection. No free fluid or free air. Normal appendix. 2. Severe atherosclerotic disease with high-grade stenosis involving distal superior mesenteric artery as above unchanged from prior study. 3. Thickening of bilateral adrenal gland with suggestion of a 1 x 1.4 cm right adrenal nodule and is of indeterminate nature. No significant discrepancies from preliminary reading. Dictated by: Sam Collins M.D. on 10/03/2021 at 8:24 Approved by: Sam Collins M.D. on 10/03/2021 at 8:29
--- NOTE | 2021-10-03 01:47 | ED_ITS ---
HPI - Abdominal Pain General Chief Complaint: Syncope Stated Complaint: near syncope, nausea, vomiting Time Seen by Provider: 10/03/21 01:34 Source: patient and EMS Mode of arrival: EMS History of Present Illness HPI narrative: Patient brought here by ambulance for near syncope with dizziness and watery vomiting and diarrhea. Patient thinks she may have had contaminated sandwich at 3:00 a.m. today. Had lower abdominal discomfort within 30 minutes. Later in the evening around 10:00 p.m. hand vomiting and diarrhea. Extensive amount according to patient. Was on the commode and had near-syncope. Lower to the ground by [id number]. No black or bloody stools. Patient states feels much better now. Denies any back pain chest pain. No dyspnea. Related Data Home Medications Medication Instructions Recorded Confirmed apixaban 5 mg tablet (Eliquis) 5 mg PO BID 09/25/20 08/14/21 furosemide 40 mg tablet 40 mg PO DAILY 09/25/20 08/14/21 lisinopril 5 mg tablet 5 mg PO DAILY 09/25/20 08/14/21 metoprolol succinate 100 mg 100 mg PO DAILY 09/25/20 08/14/21 tablet,extended release 24 hr potassium chloride 10 mEq 20 meq PO DAILY 09/25/20 08/14/21 tablet,extended release(part/cryst) rosuvastatin 10 mg tablet 10 mg PO BEDTIME 09/25/20 08/14/21 Previous Rx's Medication Instructions Recorded pulse ox monitoring See Rx Instructions .Route 02/20/21 .COMPLEX #1 ea diltiazem HCl 180 mg capsule,24 180 mg PO DAILY #90 caps 03/20/21 hr,extended release duloxetine 30 mg capsule,delayed See Rx Instructions .Route 04/29/21 release .COMPLEX #90 caps ferrous sulfate 325 mg (65 mg 325 mg PO DAILY #90 tabs 05/13/21 iron) tablet,delayed release Parking Permit... #1 ea 05/15/21 cyclobenzaprine 10 mg tablet 10 mg PO Q8HR PRN Spasms/pain #60 08/14/21 tabs ondansetron 4 mg disintegrating 4 mg PO Q8H PRN nausea and 10/03/21 tablet vomiting #10 tabs gabapentin 300 mg capsule See Rx Instructions .Route 10/08/21 .COMPLEX #180 caps Allergies Allergy/AdvReac Type Severity Reaction Status Date / Time No Known Drug Allergies Allergy Verified 08/14/21 16:22 Review of Systems Review of Systems Narrative: GENERAL: Denies chills, fatigue, malaise, fever, sweats. HEENT: Denies sinus pain, ear pain, sore throat RESPIRATORY: Denies dyspnea, cough CARDIOVASCULAR: Denies chest pain, palpitations GASTROINTESTINAL: Positive nausea, vomiting, abdominal pain : Denies dysuria, frequency, hematuria MUSCULOSKELETAL: denies muscle or bony pain SKIN: Denies rash, skin lesions NEUROLOGIC: Denies weakness, numbness, positive for dizziness/near syncope ROS Unobtainable: All systems reviewed & are unremarkable except as noted in HPI and below Patient History Medical History Acid reflux Acne (~1951) Anemia Anxiety Atrial fibrillation (~2018) Cataracts, bilateral (~2018) Chicken pox Chronic low back pain (~2014) Chronic pain syndrome Current every day smoker Dyslipidemia History of Mohs micrographic surgery for skin cancer HLD (hyperlipidemia) 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 Measles Mixed anxiety and depressive disorder SCC (squamous cell carcinoma) Superior mesenteric artery stenosis Syncope (~2018) Surgical History Anesthesia History of bilateral tubal ligation History of carpal tunnel surgery of right wrist History of tonsillectomy (~1962) Hx of bilateral cataract extraction Family History Father History of heart disease Mother History of heart disease Hypertension Social History household members: family Smoking Status: Current every day smoker Tobacco: How many years used: 57 quit status: not considering quitting (Too stressed) second hand exposure: Yes alcohol intake: current substance use type: marijuana (Pain relief ) Smoking Status: Current every day smoker alcohol intake frequency: holidays/special occasions only Substance Use Type: does not use Exam Narrative Exam Narrative: GENERAL: in no distress, not toxic not dyspneic HEAD: Normocephalic. EYES: Pupils equal round No scleral icterus. ENT: Mucous membranes moist. NECK: Trachea midline. CARDIOVASCULAR: Regular rate and rhythm without murmurs RESPIRATORY: Clear to auscultation. Breath sounds equal bilaterally. No wheezes, rales, or rhonchi. GASTROINTESTINAL: Abdomen soft, reproducible suprapubic tenderness as well as epigastric tenderness, no pain out of proportion to exam. Bowel sounds present EXTREMITIES: No gross deformities. BACK: No flank tenderness. NEURO: AOx4. SKIN: Warm and dry PSYCH: Not anxious, is cooperative Initial Vital Signs Initial Vital Signs: Vital Signs Temperature 97.8 F 10/02/21 22:55 Pulse Rate 91 H 10/02/21 22:55 Respiratory Rate 18 10/02/21 22:55 Blood Pressure 111/73 10/02/21 22:55 Pulse Oximetry 98 10/02/21 22:55 Oxygen Delivery Method 10/02/21 22:55 Course Course Course Narrative: No new issues during course of stay Orders Ordered: Discontinued Medications Sodium Chloride (Normal Saline 0.9%) 1,000 mls @ 1,000 mls/hr IV BOLUS ONE Stop: 10/03/21 02:43 Last Infusion: 10/03/21 04:27 Dose: 0 mls/hr Documented By: Admin: 10/03/21 01:55 Dose: 1,000 mls/hr Documented By: JOELLE Ondansetron HCl (Ondansetron 4 Mg/2 Ml Inj) 4 mg IV NOW ONE Stop: 10/03/21 01:45 Last Admin: 10/03/21 02:32 Dose: Not Given Documented By: JOELLE Reevaluation(s) Reevaluation #1: Reviewed results with patient and son. Patient is sleeping comfortably. No distress. Return precautions reviewed with patient. Awoke easily here. Patient states has had colonoscopy in last 5 years. However will see family doctor next week for re-evaluation. Time: 04:16 Vital Signs Vital signs: Vital Signs - 8 hr 10/02/21 22:55 10/02/21 22:56 10/02/21 22:56 Temperature 97.8 F Pulse Rate 91 H 94 H Respiratory Rate 18 21 Blood Pressure 111/73 111/73 Pulse Oximetry 98 Oxygen Delivery Method Room Air 10/02/21 23:00 10/02/21 23:30 10/02/21 23:46 Temperature Pulse Rate 92 H 99 H Respiratory Rate 18 25 H Blood Pressure 115/73 Pulse Oximetry 94 Oxygen Delivery Method 10/02/21 23:46 10/03/21 00:00 10/03/21 00:00 Temperature Pulse Rate 101 H 99 H Respiratory Rate 24 17 Blood Pressure 128/82 Pulse Oximetry 92 96 Oxygen Delivery Method 10/03/21 00:30 10/03/21 00:30 10/03/21 01:00 Temperature Pulse Rate 105 H Respiratory Rate 24 Blood Pressure 133/79 127/81 Pulse Oximetry 95 Oxygen Delivery Method 10/03/21 01:00 10/03/21 01:30 10/03/21 01:30 Temperature Pulse Rate 103 H 108 H Respiratory Rate 29 H 17 Blood Pressure 121/78 Pulse Oximetry 94 96 Oxygen Delivery Method 10/03/21 02:00 10/03/21 02:00 Temperature Pulse Rate 107 H Respiratory Rate 18 Blood Pressure 128/79 Pulse Oximetry 95 Oxygen Delivery Method MDM - Abdominal Pain Differential Diagnosis Differential diagnosis: Likely abdominal pain, acute appendicitis, constipation, diverticulitis, gastroenteritis and small bowel obstruction Lab Data Result diagrams: 10/02/21 23:02 10/02/21 23:02 Labs: Lab Results 10/02/21 10/02/21 10/02/21 Range/Units 23:02 23:02 23:02 WBC 12.9 H (4.5-11.0) X10^3/uL RBC 3.57 L (4.0-5.2) X10^6/uL Hgb 11.1 L (12.0-16.0) g/dL Hct 32.0 L (36-46) % MCV 89.5 (80-100) fL MCH 31.0 (26-34) PG MCHC 34.7 (30-36) % RDW 15.4 H (11.6-14.8) % Plt Count 322 (150-400) X10^3/uL Neut % (Auto) 83.2 H (50-75) % Lymph % (Auto) 11.2 L (25-40) % Carlisle % (Auto) 5.0 (3-14) % Eos % (Auto) 0.2 L (2-4) % Baso % (Auto) 0.4 (0-2) % Neut # (Auto) 30097 H (4026-9989) /uL Lymph # (Auto) 1400 (8296-0791) /uL Carlisle # (Auto) 600 (0-900) /uL Eos # (Auto) 0 (0-450) /uL Baso # (Auto) 0 (0-100) /uL Sodium 135 L (137-145) mmol/L Potassium 3.5 (3.4-5.1) mmol/L Chloride 101 (98-107) mmol/L Carbon Dioxide 24 (22-32) mmol/L BUN 49 H (7-17) mg/dL Creatinine 0.91 (0.52-1.04) mg/dL Estimated GFR > 60 (>60) mL/min BUN/Creatinine Ratio 53.8 H (6-22) Glucose 119 H (80-110) mg/dL Calcium 9.7 (8.4-10.2) mg/dL Total Bilirubin 0.5 (0.2-1.3) mg/dL AST 21 (14-36) IU/L ALT 13 (<35) IU/L Alkaline Phosphatase 62 (38-126) U/L Total Creatine Kinase 57 (30-135) U/L CK-MB (CK-2) TNP CK-MB (CK-2) Rel Index TNP Troponin I < 0.012 (0.01-0.034) ng/mL Total Protein 6.1 L (6.3-8.2) g/dL Albumin 3.6 (3.5-5.0) g/dL Globulin 2.5 (1.7-4.1) g/dL Albumin/Globulin Ratio 1.4 (1.0-2.8) Lipase (23-300) U/L Stl C. cayetanensis PCR (Not Detect) Stool Rotavirus (PCR) (Not Detect) Stool Adenovirus (PCR) (Not Detect) Stool Astrovirus (PCR) (Not Detect) Stool Cryptosporidium PCR (Not Detect) Stl E.coli Shiga Tox PCR (Not Detect) St Sh/Enteroin Ecoli PCR (Not Detect) Stool E coli O157 PCR Stl Enterotoxigenic E PCR (Not Detect) Stool EPEC (PCR) (Not Detect) Stl E. histolytica PCR (Not Detect) Stool Giardia Lamblia PCR (Not Detect) Stool Sapovirus (PCR) (Not Detect) Stl P. shigelloides PCR (Not Detect) St Y.enterocolitica PCR (Not Detect) Stool Vibrio (PCR) (Not Detect) Stl Vibrio cholerae PCR (Not Detect) Stl Enteroaggr Ecoli PCR (Not Detect) Stl Norovirus GI/GII PCR (Not Detect) Campylobacter (PCR) (Not Detect) C. difficile Tox (PCR) (Not Detect) Salmonella (PCR) (Not Detect) 10/03/21 10/03/21 10/03/21 Range/Units 01:51 01:51 02:10 WBC (4.5-11.0) X10^3/uL RBC (4.0-5.2) X10^6/uL Hgb (12.0-16.0) g/dL Hct (36-46) % MCV (80-100) fL MCH (26-34) PG MCHC (30-36) % RDW (11.6-14.8) % Plt Count (150-400) X10^3/uL Neut % (Auto) (50-75) % Lymph % (Auto) (25-40) % Carlisle % (Auto) (3-14) % Eos % (Auto) (2-4) % Baso % (Auto) (0-2) % Neut # (Auto) (2647-7467) /uL Lymph # (Auto) (9100-5576) /uL Carlisle # (Auto) (0-900) /uL Eos # (Auto) (0-450) /uL Baso # (Auto) (0-100) /uL Sodium (137-145) mmol/L Potassium (3.4-5.1) mmol/L Chloride (98-107) mmol/L Carbon Dioxide (22-32) mmol/L BUN (7-17) mg/dL Creatinine (0.52-1.04) mg/dL Estimated GFR (>60) mL/min BUN/Creatinine Ratio (6-22) Glucose (80-110) mg/dL Calcium (8.4-10.2) mg/dL Total Bilirubin (0.2-1.3) mg/dL AST (14-36) IU/L ALT (<35) IU/L Alkaline Phosphatase (38-126) U/L Total Creatine Kinase 58 (30-135) U/L CK-MB (CK-2) TNP CK-MB (CK-2) Rel Index TNP Troponin I < 0.012 (0.01-0.034) ng/mL Total Protein (6.3-8.2) g/dL Albumin (3.5-5.0) g/dL Globulin (1.7-4.1) g/dL Albumin/Globulin Ratio (1.0-2.8) Lipase 67 (23-300) U/L Stl C. cayetanensis PCR Not detected (Not Detect) Stool Rotavirus (PCR) Not detected (Not Detect) Stool Adenovirus (PCR) Not detected (Not Detect) Stool Astrovirus (PCR) Not detected (Not Detect) Stool Cryptosporidium PCR Not detected (Not Detect) Stl E.coli Shiga Tox PCR Not detected (Not Detect) St Sh/Enteroin Ecoli PCR Not detected (Not Detect) Stool E coli O157 PCR Not Reportable Stl Enterotoxigenic E PCR Not detected (Not Detect) Stool EPEC (PCR) Not detected (Not Detect) Stl E. histolytica PCR Not detected (Not Detect) Stool Giardia Lamblia PCR Not detected (Not Detect) Stool Sapovirus (PCR) Not detected (Not Detect) Stl P. shigelloides PCR Not detected (Not Detect) St Y.enterocolitica PCR Not detected (Not Detect) Stool Vibrio (PCR) Not detected (Not Detect) Stl Vibrio cholerae PCR Not detected (Not Detect) Stl Enteroaggr Ecoli PCR Not detected (Not Detect) Stl Norovirus GI/GII PCR Not detected (Not Detect) Campylobacter (PCR) Not detected (Not Detect) C. difficile Tox (PCR) Not detected (Not Detect) Salmonella (PCR) Not detected (Not Detect) Imaging Data Chest x-ray: Radiologist's Impression: [address] [address] XRay Report Signed Patient: Mechelle Louis MR#: [id number] : 1945 Acct:[id number] Age/Sex: 75 / F Date of Service: 10/02/21 Loc: ED Accession Number: [id number] ?? Procedure: XR chest 1V Ordering Provider: Ron Carreno MD PROCEDURE:? XR CHEST 1V ? INDICATIONS:? syncope workup ? TECHNIQUE:? One view of the chest was acquired.? ? COMPARISON:? None. ? FINDINGS:? ? Surgical changes and devices:? Postsurgical changes partially visualized within the lumbar spine.? ? Lungs and pleura:? Lungs are clear.? No pleural effusions or pneumothorax.? ? Mediastinum:? Mediastinal contours appear normal.? Heart size is normal.? ? Bones and chest wall:? No suspicious bony lesions.? Overlying soft tissues appear unremarkable.? ? IMPRESSION:? ? 1.? No acute cardiopulmonary disease. ? ? ? Dictated by: Rian Ramos M.D. on 10/03/2021 at 0:27 ? ? Approved by: Rian Ramos M.D. on 10/03/2021 at 0:28 ? CT scan - abdomen/pelvis: Radiologist's Impression: Mild colitis of the descending and sigmoid colon. Fluid in the sigmoid colon and rectum consistent with diarrheal illness. Descending and sigmoid diverticulosis. Severe atherosclerotic disease with high-grade stenosis at the bifurcation of the left internal and external iliac artery ECG Data Interpretation: Sinus tachycardia rate 107 otherwise normal EKG MDM Narrative Medical decision making narrative: Appropriate for discharge home. Patient's symptoms improved here. No of vomiting. Diarrhea has improved. Reviewed results and imaging with patient and son. Return precautions reviewed with them. They are comfortable for observation for discharge home. Discharge Plan Departure Patient Disposition: Home Clinical Impression: Gastroenteritis Activity Restrictions/Additional Instructions: See family doctor next week for re-evaluation. Patient to keep well hydrated. Prescription for nausea has been provided for you. Return if any questions or any concerns or worsening symptoms Prescriptions: New ondansetron 4 mg tablet,disintegrating 4 mg PO Q8H PRN (Reason: nausea and vomiting) Qty: 10 0RF No Action duloxetine 30 mg capsule,delayed release(DR/EC) See Rx Instructions .ROUTE .COMPLEX Qty: 90 3RF Dose Instruction: TAKE 1 CAPSULE BY MOUTH DAILY Rx Instructions: TAKE 1 CAPSULE BY MOUTH DAILY (DME) Parking Permit... See Rx Instructions .Route .MEDSUPPLY Qty: 1 0RF Rx Instructions: I find this patient to be medically disabled and qualified for disabled parking as indicated and signed on the accompanying Disabled Parking Application for Individuals. gabapentin 300 mg capsule See Rx Instructions .ROUTE .COMPLEX Qty: 180 3RF Dose Instruction: TAKE 1 CAPSULE BY MOUTH TWICE DAILY FOR NERVE PAIN Rx Instructions: TAKE 1 CAPSULE BY MOUTH TWICE DAILY FOR NERVE PAIN Eliquis 5 mg tablet 5 mg PO BID lisinopril 5 mg tablet 5 mg PO DAILY metoprolol succinate 100 mg tablet extended release 24 hr 100 mg PO DAILY potassium chloride 10 mEq tablet,ER particles/crystals 20 meq PO DAILY furosemide 40 mg tablet 40 mg PO DAILY rosuvastatin 10 mg tablet 10 mg PO BEDTIME diltiazem HCl 180 mg capsule,extended release 24 hr 180 mg PO DAILY Qty: 90 3RF ferrous sulfate 325 mg (65 mg iron) tablet,delayed release (DR/EC) 325 mg PO DAILY Qty: 90 2RF cyclobenzaprine 10 mg tablet 10 mg PO Q8HR PRN (Reason: Spasms/pain) Qty: 60 3RF pulse ox monitoring See Rx Instructions .ROUTE .COMPLEX Qty: 1 0RF Rx Instructions: pulse ox monitoring while taking narcotics and benzodiazepines Referrals: Kenny Roberson MD [Primary Care Provider] - Visit Report Forms: Patient Portal/API
[2021-10-03] MEDS: SODIUM CHLORIDE 0.9% 1,000 ML 1000 ML IV (01:55)
[2021-10-03 02:22] LABS: Creatine Kinase 58 U/L (30-135); Lipase 67 U/L (23-300)
[2021-10-03 02:35] LABS: Troponin I < 0.012 ng/mL (0.01-0.034)
[2021-10-03 04:02] LABS: Campylobacter Not Detected (Not Detect); Clostridium difficile toxin AB Not Detected (Not Detect); Enteroaggregative E.coli Not Detected (Not Detect); Enteropathogenic E.coli Not Detected (Not Detect); Enterotoxigenic E.coli It/st Not Detected (Not Detect); Plesiomonsa shigelloides Not Detected (Not Detect); Salmonella Not Detected (Not Detect); Shiga-like toxin-prod E.coli Not Detected (Not Detect); Shigella/Enteroinvasive E.coli Not Detected (Not Detect); Vibrio Not Detected (Not Detect); Vibrio cholerae Not Detected (Not Detect); Yersinia enterocolitica Not Detected (Not Detect)
[2021-10-03 04:03] LABS: Adenovirus F 40/41 Not Detected (Not Detect); Astrovirus Not Detected (Not Detect); Cryptosporidium Not Detected (Not Detect); Cyclospora cayetanensis Not Detected (Not Detect); Entamoeba histolytica Not Detected (Not Detect); Giardia lamblia Not Detected (Not Detect); Norovirus GI/GII Not Detected (Not Detect); Rotavirus A Not Detected (Not Detect); Sapovirus Not Detected (Not Detect)
== END 2021-10-03 04:27 | disposition home or self-care (01) ==
PROVIDERS: Emergency Provider Emergency Medicine; Family Provider Family Medicine; PCP Family Medicine
DX: K52.9 Noninfective gastroenteritis and colitis, unspecified (principal); R10.9 Unspecified abdominal pain
CPT/HCPCS: 36415; 71045; 74177; 80053; 82550; 83690; 84484; 85025; 87507; 93005; 93010; 96360; 96361; 99283; 99284; Q9967

== ENCOUNTER → 2021-11-04 10:47 | Outpatient (CLI) | payer MEDICARE, SELFPAY ==
[2021-02-14 18:55] VITALS: BMI 25.6
--- NOTE | 2021-11-04 10:49 | DI.RAD.S_ITS ---
PROCEDURE: XR LUMBAR SPINE 2-3V INDICATIONS: chronic back pain. TECHNIQUE: 3 views of the lumbar spine were acquired. COMPARISON: [facility] [place], CR, XR LUMBAR SPINE 2 OR 3 VIEWS, 08/19/2021, 11:26. FINDINGS: Bones: 5 [id number] vertebrae are present. Postsurgical changes compatible with L2-L5 posterior fusion with placement of bilateral pedicle screws and fusion rods. Orthopedic hardware is in expected position. Orthopedic hardware is intact. Chronic appearing L3 compression fracture is stable compared to August 19, 2021. Postsurgical changes compatible with L3 percutaneous vertebroplasty are stable compared to August 19, 2021. No acute vertebral body compression fractures. There is 5 millimeters of L2-L3 and L3-L4 retrolisthesis. There is 3 millimeters of L4-L5 retrolisthesis. No suspicious bony lesions. Severe L4-L5 and L5-S1 degenerative disc changes. Moderate L1-L2, L2-L3 and L3-L4 degenerative disc changes. Moderate facet hypertrophy noted throughout the lumbar spine. Soft tissues: Overlying bowel gas pattern is normal. No suspicious soft tissue calcifications. IMPRESSION: 1. Multilevel degenerative disc disease. 2. Multilevel facet arthropathy. 3. No fracture. No acute osseous lesion. If symptoms and/or clinical suspicion for pathology persists, evaluation with MRI should be considered for further assessment. 4. Stable postsurgical changes. Dictated by: Thalia Hinton MD, PhD on 11/04/2021 at 14:25 Approved by: Thalia Hinton MD, PhD on 11/04/2021 at 14:28
[2021-11-04 12:52] LABS: Add Manual Diff / Slide Review NO; Basophils Absolute Auto 0 /uL (0-100); Basophils Percent Auto 0.5 % (0-2); Eosinophils Absolute Auto 100 /uL (0-450); Eosinophils Percent Auto 0.9 % (2-4); Hematocrit 32.7 % (36-46); Lymphocytes Absolute Auto 1500 /uL (1100-4500); Lymphocytes Percent Auto 15.9 % (25-40); Mean Corpuscular HGB Conc 33.6 % (30-36); Mean Corpuscular Hemoglobin 30.4 PG (26-34); Mean Corpuscular Volume 90.5 fL (80-100); Monocytes Absolute Auto 600 /uL (0-900); Monocytes Percent Auto 6.7 % (3-14); Neutrophils Absolute Auto 7200 /uL (1500-7000); Platelet Count 397 X10^3/uL (150-400); Red Blood Cell Count 3.61 X10^6/uL (4.0-5.2); Red Cell Distribution Width 15.2 % (11.6-14.8); White Blood Cell Count 9.5 X10^3/uL (4.5-11.0)
[2021-11-04 13:53] LABS: HEMOLYSIS < 15 (0-50); Iron 38 ug/dL (37-170)
[2021-11-04 14:06] LABS: Percent Iron Saturation 11 % (15-50); Total Iron Binding Capacity 360 ug/dL (265-497); Transferrin 272 mg/dL (206-381)
[2021-11-04 16:06] LABS: Alanine Aminotransferase 13 IU/L (<35); Albumin 3.8 g/dL (3.5-5.0); Albumin Globulin Ratio 1.4 (1.0-2.8); Alkaline Phosphatase 93 U/L (38-126); Aspartate Aminotransferase 19 IU/L (14-36); BUN Creatinine Ratio 26.4 (6-22); Bilirubin Total 0.3 mg/dL (0.2-1.3); Blood Urea Nitrogen 19 mg/dL (7-17); Calcium 9.1 mg/dL (8.4-10.2); Carbon Dioxide 27 mmol/L (22-32); Chloride 97 mmol/L (98-107); Estimated Glomerular Filt Rate > 60 mL/min (>60); Globulin 2.7 g/dL (1.7-4.1); Glucose 95 mg/dL (80-110); HEMOLYSIS < 15 (0-50); Potassium 4.2 mmol/L (3.4-5.1); Sodium 134 mmol/L (137-145); Total Protein 6.5 g/dL (6.3-8.2)
[2021-11-04 16:40] LABS: Ferritin 12 ng/mL (11-264)
== END ==
PROVIDERS: Family Provider Family Medicine; PCP Family Medicine; Referring Provider Family Medicine; Visit Provider Family Medicine
DX: M51.36 Other intervertebral disc degeneration, lumbar region (principal); M47.816 Spondylosis without myelopathy or radiculopathy, lumbar region; M47.817 Spondylosis without myelopathy or radiculopathy, lumbosacral region; D64.9 Anemia, unspecified; I48.91 Unspecified atrial fibrillation; K55.1 Chronic vascular disorders of intestine; I10 Essential (primary) hypertension; M54.50 Low back pain, unspecified; G89.29 Other chronic pain
CPT/HCPCS: 36415; 72100; 80053; 82728; 83540; 83550; 85025

== ENCOUNTER → 2021-11-06 13:57 | Outpatient (CLI) | payer MEDICARE, SELFPAY ==
[2021-02-14 18:55] VITALS: BMI 25.6
--- NOTE | 2021-11-06 13:58 | DI.CT.S_ITS ---
PROCEDURE: CT ANGIO ABD AORTA RUNOFF INDICATIONS: pain in right leg and some toe discoloration TECHNIQUE: After the administration of intravenous contrast, 2.5 mm sections acquired from T12 to the feet, with optional delayed image acquisition from the knees to the feet. 3-dimensional maximum intensity projection (MIP) coronal and sagittal reformats, and/or 3-dimensional volume rendering reformatting was then performed. For radiation dose reduction, the following was used: automated exposure control. COMPARISON: [facility], CT, CT ABDOMEN PELVIS W CON, 03/19/2021, 7:43. [facility], CT, CT ABDOMEN PELVIS W CON, 10/03/2021, 2:12. FINDINGS: Image quality: Excellent. Extravascular tissues: Lung bases are clear. Heart size is normal. Liver is normal in size and enhancement. Gallbladder is surgically absent . Biliary system is non dilated. Pancreas enhances normally. Spleen is normal in size and enhancement. No adrenal nodules. Right kidney is normal size. Left kidney is somewhat small and shrunken. No hydronephrosis. Non opacified bowel loops demonstrate normal wall thickness and enhancement. Mild diverticulosis without evidence of diverticulitis. No free fluid or air. No retroperitoneal or mesenteric adenopathy. No ventral hernias. Bladder wall thickness is normal. No inguinal hernias or adenopathy. No suspicious bony lesions. Extensive lumbar degenerative change. Remote percutaneous cement fixation of L3. Posterior lateral orthopedic farida and pedicle screw fixation at L2 through L4. Abdominal aorta and its attachments: Aorta has a normal caliber without significant stenotic disease. Celiac is patent. The SMA has a proximal stenosis with soft plaque measuring slightly greater than 2 cm in length resulting in moderate focal stenosis. This was present on the 03/19/2021 study. Bilateral renal arteries are patent. YISEL is patent. Right lower extremity: There is a severe noncalcified stenosis in the mid to distal right external iliac artery. This is unchanged from the previous study 10/03/2021. It is significantly progressed from the study of 03/19/2021. A right internal iliac occlusion unchanged from 03/19/2021. There is a focal moderate to severe common femoral artery stenosis. The profundus is patent. It is not hypertrophied. The SFA is occluded at its origin. It was also occluded on the 03/19/2021 study. There is reconstitution of the SFA at the distal thigh above Rich's canal the popliteal has a focal moderate to severe [id number] stenosis. It is otherwise diffusely somewhat small in caliber. The peroneal is a patent vessel. There are long segment occlusions of the anterior tibial and posterior tibial. The posterior tibial reconstitutes above the ankle via collaterals from the peroneal, to feed the foot. Left lower extremity: There is diffuse calcification of the right common iliac. There is a focal severe calcified luminal stenosis of the distal left. No hemodynamically significant left external iliac artery disease. Mild left common femoral stenotic disease. The profundus is patent. The SFA is occluded at its origin. It was also occluded at its origin on 03/19/2021. This occlusion was present on the previous recent study, as well. There is reconstitution just above Rich's canal. The popliteal is a patent vessel. The peroneal is the only continuous vessel. The anterior tibial occludes at its origin. The posterior tibial is a discontinuous significantly diseased vessel. IMPRESSION: 1. Patient has extensive peripheral vascular disease. 2. On the right, and external iliac artery focal stenosis is definitely progressive compared to 03/19/2021, and is severe. There is chronic occlusion of the right internal iliac. There is chronic origin occlusion of the right SFA. 3. On the left, there is a severe calcified common iliac artery focal stenosis. There is chronic occlusion of the origin of the right SFA. 4. On the right, runoff below the inguinal ligament demonstrates moderate to severe common femoral stenosis, occlusion of the SFA at its origin, reconstitution of the SFA at the distal thigh above Rich's canal, focal moderate to severe popliteal stenosis, and single vessel peroneal runoff. 5. On the left, there is occlusion of the SFA at its origin. There is reconstitution just above Rich's canal. The peroneal is the only continuous vessel. 6. A moderate relatively long segment SMA stenosis is again noted, unchanged from 03/19/2021. 7. Left kidney is somewhat small and shrunken. Right kidney is normal in size. Dictated by: nOi Maguire M.D. on 11/06/2021 at 14:51 Approved by: Oni Maguire M.D. on 11/06/2021 at 15:33
== END ==
PROVIDERS: Family Provider Family Medicine; PCP Family Medicine; Referring Provider Family Medicine; Visit Provider Family Medicine
DX: I70.203 Unspecified atherosclerosis of native arteries of extremities, bilateral legs (principal); K55.1 Chronic vascular disorders of intestine; L81.9 Disorder of pigmentation, unspecified; M79.604 Pain in right leg; I48.91 Unspecified atrial fibrillation; I10 Essential (primary) hypertension; D64.9 Anemia, unspecified; M54.50 Low back pain, unspecified; G89.29 Other chronic pain
CPT/HCPCS: 75635; Q9967

== ENCOUNTER → 2021-12-27 12:54 | Outpatient (CLI) | payer MEDICARE, SELFPAY ==
[2021-12-09 12:16] VITALS: BMI 25.6
--- NOTE | 2021-12-27 12:56 | DI.RAD.S_ITS ---
PROCEDURE: XR FOOT RT MIN 3V INDICATIONS: Right great toe pain TECHNIQUE: 3 views of the foot were acquired. COMPARISON: None. FINDINGS: Bones: No fractures or dislocations. No suspicious bony lesions. Mild degenerative changes of the interphalangeal joints and great toe metatarsophalangeal joint. Soft tissues: No tibiotalar joint effusion. Achilles tendon appears normal. IMPRESSION: 1. No acute abnormality. 2. Mild degenerative changes of the interphalangeal joints and great toe metatarsophalangeal joint. Dictated by: Bola Barahona M.D. on 12/27/2021 at 13:29 Approved by: Bola Barahona M.D. on 12/27/2021 at 13:30
== END ==
PROVIDERS: Family Provider Family Medicine; PCP Family Medicine; Referring Provider Registered Nurse; Visit Provider Registered Nurse
DX: M79.674 Pain in right toe(s) (principal)
CPT/HCPCS: 73630

== ENCOUNTER → 2022-03-02 14:47 | Outpatient (CLI) | payer MEDICARE, SELFPAY ==
[2021-12-09 12:16] VITALS: BMI 25.6
[2022-03-02 16:09] LABS: Hemoglobin A1C% w Est Avg Glu 4.3 % (4.0-6.0)
[2022-03-02 16:12] LABS: Blood Urea Nitrogen 22 mg/dL (7-17); Calcium 9.2 mg/dL (8.4-10.2); Carbon Dioxide 25 mmol/L (22-32); Chloride 96 mmol/L (98-107); Estimated Glomerular Filt Rate > 60 mL/min (>60); Glucose 104 mg/dL (80-110); HEMOLYSIS < 15 (0-50); Magnesium 1.7 mg/dL (1.6-2.3); Potassium 3.4 mmol/L (3.4-5.1); Sodium 135 mmol/L (137-145)
== END ==
PROVIDERS: Family Provider Family Medicine; PCP Family Medicine; Referring Provider Internal Medicine Cardiovascular Disease; Visit Provider Internal Medicine Cardiovascular Disease
DX: R73.9 Hyperglycemia, unspecified (principal); I10 Essential (primary) hypertension
CPT/HCPCS: 36415; 80048; 83036; 83735

== ENCOUNTER → 2022-03-26 09:03 | Outpatient (CLI) | payer MEDICARE, SELFPAY ==
[2021-12-09 12:16] VITALS: BMI 25.6
--- NOTE | 2022-03-26 09:04 | DI.ECHO.S_ITS ---
[facility]---------+ [facility] +---------+ : : [address] : : : : [id number] : : : : Phone: [phone]+ Echocardiogram Report + + :Name: YARON WOLFE Study Date: 03/26/2022 Height: 62 in : :[facility] ReadingLocation: Weight: 145 lb : : Gender: Female BSA: 1.7 m2 : :: 1945 Age: 76 yrs BP: 152/96 mmHg: :Reason For Study: Shortness of breath, atrial fibrillation : :Ordering Physician: DREW, : :DAVID Performed By: Cher Rowe : :Referring: DAVID RUSSELL : + + Interpretation Summary 1) Normal left ventricular thickness, size, wall motion, and systolic function (EF 60-65%). 2) Normal right ventricular size and function. 3) Diastolic parameters suggest a pseudonormalization pattern, consistent with probable elevated filling pressures. 4) Calcific mitral valve with mildly increased inflow gradient (mean 4mmHg). No significant valvular stenosis or regurgitation. 5) No prior Echo available for comparison. Procedure: A two-dimensional transthoracic echocardiogram with color flow and Doppler was performed. The patient was in sinus rhythm with heart rates between 60-65 bpm during the exam. Left Ventricle: The left ventricle is normal in size and wall thickness. The ejection fraction is estimated to be 60-65%. Left ventricular systolic function appears normal without focal wall motion abnormalities. Diastolic parameters suggest a pseudonormalization pattern, consistent with probable elevated filling pressures. Right Ventricle: The right ventricle is normal in size and function. Atria: The left atrium is moderately dilated. The right atrium is normal in size. There is no Doppler evidence for an interatrial shunt. Mitral Valve: The mitral valve is normal in structure and function. The mitral valve leaflets are slightly calcified. The mitral valve mean gradient is 4 mmHg. There is trace mitral regurgitation. Aortic Valve: The aortic valve is normal in structure and function. There is no aortic valve stenosis. No aortic regurgitation is present. Tricuspid Valve: The tricuspid valve is normal in structure and function. There is a trace or physiologic amount of tricuspid regurgitation. Pulmonary artery pressures cannot be estimated because of the lack of a measurable TR jet velocity. Pulmonic Valve: The pulmonic valve leaflets are thin and pliable; valve motion is normal. There is trace pulmonic regurgitation. Great Vessels: The aortic root is normal size. The ascending aorta is mildly enlarged. The aortic arch could not be visualized. The IVC is of normal diameter and collapses greater than 50% with a sniff. This suggests a low right atrial pressure of 3 mm Hg. Pericardium/ Pleura There is no pericardial effusion. There is an anterior echo-free space consistent with a fat pad. There is no pleural effusion. MMode/2D Measurements & Calculations LVIDd: 4.6 cm LVOT diam: 1.8 cm LVIDs: 3.0 cm Ao root diam: 3.1 cm FS: 34.9 % asc Aorta Diam: 3.7 cm EPSS: 0.38 cm IVSd: 0.94 cm LVPWd: 0.97 cm LV aiken. diameter/BSA (cm/m^2): 2.7 LV sys. diameter/BSA (cm/m^2): 1.8 LA A2 area: 23.1 cm2 RA long axis: 5.3 cm LA A4 area: 20.4 cm2 RA area: 16.1 cm2 LA length (vol): 5.9 cm RA vol: 41.6 ml LA vol: 67.3 ml RA : 25.0 ml/m2 LA vol index: 40.4 ml/m2 RVD1 (basal): 3.1 cm TAPSE: 2.5 cm Doppler Measurements & Calculations Ao V2 max: 164.0 cm/sec LVOT Max Dougie: 107.8 cm/sec Ao V2 mean: 105.3 cm/sec LV V1 max P.6 mmHg Ao max P.8 mmHg LV V1 VTI: 27.2 cm Ao mean P.1 mmHg FERNANDO(I,D): 2.2 cm2 Ao V2 VTI: 32.9 cm FERNANDO(V,D): 1.8 cm2 sev ratio: 0.83 FERNANDO indexed to BSA (cm^2/m^2): 1.3 MV E max dougie: 121.5 cm/sec TR max dougie: 217.7 cm/sec MV A max dougie: 136.3 cm/sec TR max P.0 mmHg MV E/A: 0.89 PA V2 max: 79.6 cm/sec Med Peak E' Dougie: 5.8 cm/sec PA V2 mean: 57.1 cm/sec E/E' med: 21.0 PA mean P.4 mmHg Lat Peak E' Dougie: 8.2 cm/sec E/E' lat: 14.7 E/e' average: 17.9 MV dec time: 0.21 sec MVA(VTI): 1.7 cm2 MV V2 mean: 94.2 cm/sec SV(LVOT): 72.4 ml MV mean P.0 mmHg MV V2 VTI: 41.6 cm Reading Physician:12:36 PM
--- NOTE | 2022-03-26 09:04 | DI.CT.S_ITS ---
PROCEDURE: CT LUNG LOW DOSE SCREENING INDICATIONS: 30 pack year smoking TECHNIQUE: Noncontrast 2.0-2.5 mm thick sections acquired from the pulmonary apices to the posterior costophrenic angles. 7 mm thick axial MIP, and 5 mm coronal and sagittal reformats were then acquired. A low radiation dose technique was utilized. COMPARISON: [facility], CT, CT ANGIO ABD AORTA RUNOFF, 11/06/2021, 14:14. FINDINGS: Image quality: Diagnostic, given the low radiation dose technique. Lungs and pleura: 4 mm solid nodule is seen in right upper lobe near apex series 3, image 96. 4 mm calcified granuloma is noted in lateral left lower lobe near left lung base series 3, image 245. Scattered atelectasis and scarring in posterior and lateral periphery of bilateral lung alvarez are seen. Ggbz-br-yjreaqfa centrilobular emphysema is seen. No pleural effusion or pneumothorax. Central and peripheral airway is patent. Mediastinum: Heart size is normal. No pericardial effusion. Moderate atherosclerotic calcifications are noted throughout coronary vessels and thoracic aorta. No mediastinal adenopathy by size criteria. Thoracic aorta and central pulmonary arteries are normal in size. Esophagus is normal in caliber. No hiatal hernia. Bones and chest wall: No suspicious bony lesions. Age indeterminate compression deformity involving superior endplate of L1 vertebral body is seen with up to 30% loss of L1 vertebral body height anteriorly new since 11/06/2021 study. Degenerative disc disease throughout thoracic spine and upper lumbar spine is seen. No axillary or supraclavicular adenopathy by size criteria. Thyroid gland is within normal limits. Abdomen: Visualized upper abdomen solid organs and bowel loops appear normal in the absence of contrast. IMPRESSION: 1. 4 mm solid nodule in right upper lobe. 4 mm calcified granuloma in left lower lobe. 2. Moderate centrilobular emphysema. Scattered atelectasis in periphery of bilateral lung alvarez. No focal infiltrate, pleural effusion or pneumothorax. 3. Moderate atherosclerotic disease. 4. Anterior wedge compression deformity involving superior endplate of L1 new since 11/06/2021 study. LUNG-RADS 2, annual low-dose screening CT chest follow-up is recommended as long as patient meets the criteria. Dictated by: Sam Collins M.D. on 03/26/2022 at 10:01 Approved by: Sam Collins M.D. on 03/26/2022 at 10:09
== END ==
PROVIDERS: Family Provider Family Medicine; PCP Family Medicine; Referring Provider Family Medicine; Visit Provider Family Medicine
DX: I48.11 Longstanding persistent atrial fibrillation (principal); I73.9 Peripheral vascular disease, unspecified; R06.02 Shortness of breath; K55.1 Chronic vascular disorders of intestine; E87.1 Hypo-osmolality and hyponatremia; J98.11 Atelectasis; R91.1 Solitary pulmonary nodule; J43.2 Centrilobular emphysema; I25.10 Atherosclerotic heart disease of native coronary artery without angina pectoris; I70.0 Atherosclerosis of aorta; M51.34 Other intervertebral disc degeneration, thoracic region; M51.36 Other intervertebral disc degeneration, lumbar region; M43.9 Deforming dorsopathy, unspecified; F17.210 Nicotine dependence, cigarettes, uncomplicated
CPT/HCPCS: 71250; 93306

== ENCOUNTER → 2022-04-07 15:00 | Outpatient (CLI) | payer MEDICARE, SELFPAY ==
[2021-12-09 12:16] VITALS: BMI 25.6
[2022-04-07 15:35] LABS: Alanine Aminotransferase 16 IU/L (<35); Albumin Globulin Ratio 1.5 (1.0-2.8); Alkaline Phosphatase 80 U/L (38-126); Aspartate Aminotransferase 18 IU/L (14-36); BUN Creatinine Ratio 24.2 (6-22); Bilirubin Total 0.3 mg/dL (0.2-1.3); Blood Urea Nitrogen 15 mg/dL (7-17); Calcium 9.2 mg/dL (8.4-10.2); Carbon Dioxide 28 mmol/L (22-32); Chloride 96 mmol/L (98-107); Estimated Glomerular Filt Rate > 60 mL/min (>60); Globulin 2.6 g/dL (1.7-4.1); Glucose 102 mg/dL (80-110); HEMOLYSIS < 15 (0-50); Potassium 4.3 mmol/L (3.4-5.1); Sodium 131 mmol/L (137-145); Total Protein 6.6 g/dL (6.3-8.2)
== END ==
PROVIDERS: Family Provider Family Medicine; PCP Family Medicine; Referring Provider Family Medicine; Visit Provider Family Medicine
DX: I10 Essential (primary) hypertension (principal); I48.11 Longstanding persistent atrial fibrillation; I73.9 Peripheral vascular disease, unspecified
CPT/HCPCS: 36415; 80053

== ENCOUNTER → 2022-05-12 14:13 | Outpatient (CLI) | payer MEDICARE, SELFPAY ==
[2021-12-09 12:16] VITALS: BMI 25.6
== END ==
PROVIDERS: Family Provider Family Medicine; PCP Family Medicine; Referring Provider Family Medicine; Visit Provider Family Medicine
DX: Z78.0 Asymptomatic menopausal state (principal); Z13.820 Encounter for screening for osteoporosis; M81.0 Age-related osteoporosis without current pathological fracture; F17.200 Nicotine dependence, unspecified, uncomplicated
CPT/HCPCS: 77080; 77081

== ENCOUNTER → 2022-07-22 09:58 | Outpatient (CLI) | payer MEDICARE, SELFPAY ==
[2021-12-09 12:16] VITALS: BMI 25.6
--- NOTE | 2022-07-22 22:00 | DI.NM.S_ITS ---
DATE OF SERVICE: 07/22/2022 PROCEDURE: Pharmacological perfusion study. INDICATIONS: Shortness of breath, coronary artery disease, paroxysmal AFib, smoking, hypertension, hyperlipidemia, PAD. RADIOPHARMACEUTICAL: 25.9 millicurie technetium-99m Myoview IV was injected at stress and 12.2 millicurie technetium-99m Myoview IV was injected at rest. CARDIAC STRESS: The patient underwent IV Lexiscan perfusion study under the supervision of an attending staff using standard IV Lexiscan as per protocol. The patient remained hemodynamically stable. Baseline blood pressure of 136/98. Baseline heart rate 59. Rhythm sinus. During stress, no convincing ischemic changes. The patient had a brief episode of junctional bradycardia with heart rate 40s, then returned to normal sinus rhythm. No high-degree AV block seen. No complex ventricular arrhythmias. No significant symptoms reported. RAW DATA: Breast shadow seen. GATED STUDY: Resting LV ejection fraction 57% and stress LV ejection fraction 68%. No significant wall motion abnormalities. Resting end-diastolic volume 86 mL. TID ratio 1.23. This is a pharmacological perfusion study. Lung/heart ratio 0.37, which is within normal limits. MYOCARDIAL PERFUSION SCAN: Stress supine, resting supine and stress prone images were compared to each other. Stress supine and resting supine images revealed small size, mildly decreased perfusion of anterior wall, anterior apex as well as distal anterior septum, which got completely resolved during stress prone images suggestive of breast tissue attenuation artifact. No convincing ischemia or infarction. CONCLUSION: This is a normal myocardial perfusion study with evidence of breast tissue attenuation artifact, which got resolved during stress prone images. Preserved left ventricular function. Transient junctional bradycardia with Lexiscan with normal recovery. No high-degree atrioventricular block. The patient had a perfusion study in October 2020. At that time also, patient had normal myocardial perfusion. Overall, low-risk myocardial perfusion scan. Mechelle Louis - JAMES/aliya/luzmaria doc#: [id number]/job#: [id number] dd: 07/22/2022 17:03:00 dt: 07/22/2022 21:48:00 DICTATING MD/COPIES TO: Timoteo Villa MD COPIES MNE: MIHIR;
== END ==
PROVIDERS: Family Provider Family Medicine; PCP Family Medicine; Referring Provider Internal Medicine Cardiovascular Disease; Visit Provider Internal Medicine Cardiovascular Disease
DX: I25.10 Atherosclerotic heart disease of native coronary artery without angina pectoris (principal); R06.02 Shortness of breath; I48.0 Paroxysmal atrial fibrillation; I10 Essential (primary) hypertension; E78.5 Hyperlipidemia, unspecified; I73.9 Peripheral vascular disease, unspecified; F17.210 Nicotine dependence, cigarettes, uncomplicated
CPT/HCPCS: 78452; 93017; A9502; J2785

== ENCOUNTER → 2022-09-08 14:30 | Outpatient (CLI) | payer MEDICARE, SELFPAY ==
[2021-12-09 12:16] VITALS: BMI 25.6
--- NOTE | 2022-09-08 14:31 | DI.RAD.S_ITS ---
PROCEDURE: XR FOOT LT MIN 3V INDICATIONS: Fall, swelling TECHNIQUE: 3 views of the foot were acquired. COMPARISON: None. FINDINGS: Bones: Mildly displaced fracture of the mid aspect of the 5th metatarsal. Soft tissues: No tibiotalar joint effusion. Achilles tendon appears normal. IMPRESSION: 5th metatarsal fracture. Dictated by: Thalia Hinton MD, PhD on 09/08/2022 at 15:19 Approved by: Thalia Hinton MD, PhD on 09/08/2022 at 15:20
== END ==
PROVIDERS: Family Provider Family Medicine; PCP Family Medicine; Referring Provider Family Medicine; Visit Provider Family Medicine
DX: S92.352A Displaced fracture of fifth metatarsal bone, left foot, initial encounter for closed fracture (principal); W19.XXXA Unspecified fall, initial encounter
CPT/HCPCS: 73630